=== PATIENT | female | born 1935 | race Caucasian/White ===

== ENCOUNTER 2020-11-06 07:42 | Outpatient (REF) | payer MEDICARE, SELFPAY ==
--- NOTE | ~2020-11-06 | MM_ITS ---
EXAMINATION: MM SCREENING DIGITAL BREAST TOMOSYNTHESIS, BILATERAL CLINICAL INFORMATION: Screening. Asymptomatic. The lifetime risk of breast cancer based on the Tyrer-Cuzick Model is under 1%. COMPARISON: Mammography: 05/22/2019, 04/27/2018, 04/02/2017 TECHNIQUE: Digital breast tomosynthesis is performed in both the craniocaudal and mediolateral oblique views along with computer-aided detection (CAD). Synthesized 2D images are generated from the tomosynthesis. FINDINGS: There are scattered areas of fibroglandular density (ACR BI-RADS breast composition Category b). Breast tissue composition borders on heterogeneously dense. Parenchymal pattern is similar to prior studies. There is no significant mass or architectural abnormality or abnormal calcifications. Right breast has biopsy clip marker adjacent to a nodule central anterior 3:30 o'clock position. The axilla and skin contours are unremarkable. MM/MM tomosynthesis screening BI IMPRESSION: No significant changes from prior studies. ASSESSMENT: BI-RADS 2: Benign RECOMMENDATION: Routine annual mammography screening. This patient's information was entered into a reminder system with a target due date for their next mammogram.
== END 2020-11-06 07:43 | disposition home or self-care (01) ==
LOC: HO.MAMMO 07:42
PROVIDERS: PCP Internal Medicine; Visit Provider Internal Medicine
DX: Z12.31 Encounter for screening mammogram for malignant neoplasm of breast (principal)
CPT/HCPCS: 77063; 77067

== ENCOUNTER 2020-11-11 14:34 | Outpatient (REF) | payer MEDICARE, SELFPAY ==
--- NOTE | 2020-11-11 14:41 | ECG_ITS ---
Test Reason : PRE OP Blood Pressure : / mmHG Vent. Rate : 059 BPM Atrial Rate : 059 BPM P-R Int : 178 ms QRS Dur : 082 ms QT Int : 396 ms P-R-T Axes : 080 064 074 degrees QTc Int : 392 ms Sinus bradycardia Otherwise normal ECG When compared with ECG of 08-MAR-2018 09:22, No significant change was found Referred By: Rayshawn Madison Electronically Signed By:MONICA LOVE MD
[2020-11-11 15:17] LABS: MANUAL DIFF FLAG NO
[2020-11-11 15:23] LABS: Basophils Percent Auto 0.2 % (0-2); Eosinophils Absolute Auto 0.1 X10*3/uL (0.0-0.4); Eosinophils Percent Auto 2.7 % (0-4); Hematocrit 39.1 % (37-47); Hemoglobin 12.6 g/dl (12.0-16.0); Imm Gran Abs Auto 0.02 X10*3/uL (0.00-0.03); Imm Gran Pct Auto 0.4 % (0.0-0.4); Lymphocytes Absolute Auto 1.9 X10*3/uL (1.2-4.9); Lymphocytes Percent Auto 36.5 % (20-40); Mean Corpuscular HGB Conc 32.2 g/dl (31.0-35.0); Mean Corpuscular Hemoglobin 30.9 pg (27.0-33.0); Mean Corpuscular Volume 95.8 fL (80-98); Mean Platelet Volume 10.1 fL (9.4-12.3); Monocytes Absolute Auto 0.4 X10*3/uL (0.1-1.2); Monocytes Percent Auto 8.4 % (2-11); Neutrophils Absolute Auto 2.6 X10*3/uL (2.0-8.3); Neutrophils Percent Auto 51.8 % (45-73); Platelet Count 226 X10*3/uL (160-400); Red Blood Count 4.08 X10*6/uL (4.20-5.50); Red Cell Distribution Width 13.2 % (11.0-16.0); White Blood Count 5.1 X10*3/uL (4.8-10.8)
[2020-11-11 15:29] LABS: Glucose Urine UA NEG (NEG); Leukocyte Esterase Urine NEG (NEG); Nitrite Urine POS (NEG); PH 5.5 (5.0-8.0); Specific Gravity - Urine >= 1.030 (1.005-1.025); Urine Blood NEG (NEG); Urine Ketones NEG (NEG); Urine Protein NEG (NEG-TRACE)
[2020-11-11 15:30] LABS: Appearance Urine CLEAR; Color Urine YELLOW
[2020-11-11 15:38] LABS: Bacteria Urine 3+ /LPF; RBC Urine 0 /HPF (0); Squamous Epithelial Cell Urine 1+ /LPF
[2020-11-11 15:41] LABS: Alanine Aminotransferase 32 U/L (0-31); Albumin Level 4.3 g/dL (3.5-5.0); Alkaline Phosphatase 100 U/L (39-117); Anion Gap 11 (12-20); Aspartate Amino Transferase 25 U/L (5-31); B Type Natriuretic Peptide 153 pg/mL (<100); Bilirubin Total 0.3 mg/dL (0.0-1.0); Blood Urea Nitrogen 21 mg/dL (9-16); Calcium 9.9 mg/dL (8.4-10.2); Carbon Dioxide 27 mmol/L (22-29); Chloride 108 mmol/L (96-108); Estimated Glomerular Filt Rate > 60; Glucose Random 103 mg/dL (60-115); Potassium 4.4 mmol/L (3.3-5.1); Sodium 142 mmol/L (135-145); Total Protein 6.7 g/dL (6.5-8.0)
[2020-11-11 16:03] LABS: Free T4 (Free Thyroxine) 0.93 ng/dL (0.71-1.85); Thyroid Stimulating Hormone 0.75 uIU/mL (0.32-4.0); Vitamin D 25-OH Total 60.1 ng/mL (>30)
[2020-11-11 16:13] LABS: Folate > 20.0 ng/mL (> or = 4.0); Vitamin B12 1164 pg/mL (200-900)
== END 2020-11-11 14:35 | disposition home or self-care (01) ==
LOC: HO.LAB 14:34
PROVIDERS: PCP Internal Medicine; Visit Provider Internal Medicine
DX: Z01.818 Encounter for other preprocedural examination (principal)
CPT/HCPCS: 36415; 80053; 81001; 82306; 82607; 82746; 83880; 84439; 84443; 85025; 87086; 87088; 87186; 93005

== ENCOUNTER 2021-10-28 15:14 | Outpatient (REF) | payer MEDICARE, SELFPAY ==
--- NOTE | ~2021-10-28 | CT_ITS ---
EXAMINATION: CT HEAD WITHOUT CONTRAST CLINICAL INFORMATION: Headache. COMPARISON: None TECHNIQUE: Contiguous axial imaging was performed from the skull base to vertex without intravenous administration of contrast. This CT examination was performed using dose optimization techniques as appropriate, variously including the following: *Automated exposure control *Adjustment of mA and/or kV according to patient size (this includes techniques or standardized protocols for targeted exams where dose is matched to indication/reason for exam; i.e. extremities or head) *Use of iterative reconstruction technique DLP: 782 mGy-cm FINDINGS: There is no evidence of acute intracranial hemorrhage or territorial infarction. No abnormal mass effect or midline shift is seen. Kuo to white matter differentiation is well preserved. No extra-axial fluid collections are identified. The lateral ventricles are symmetrical and mildly enlarged with mild prominence of bilateral cortical sulci. There is there is mild periventricular hypodensity in both cerebral hemispheres without mass effect. The osseous structures and soft tissues are normal. There is complete opacification of right sphenoid sinus. Rest of the paranasal sinuses and mastoid air cells are well-aerated. CT/CT head/brain wo con IMPRESSION: No acute intracranial process seen. Chronic right sphenoid sinus inflammatory changes.
== END 2021-10-28 15:15 | disposition home or self-care (01) ==
LOC: HO.CT 15:14
PROVIDERS: PCP Internal Medicine; Visit Provider Internal Medicine
DX: M81.0 Age-related osteoporosis without current pathological fracture (principal); R51.9 Headache, unspecified; J32.3 Chronic sphenoidal sinusitis
CPT/HCPCS: 70450

== ENCOUNTER 2021-11-11 09:11 | Outpatient (REF) | payer MEDICARE, SELFPAY ==
--- NOTE | ~2021-11-11 | MM_ITS ---
EXAMINATION: MM SCREENING DIGITAL BREAST TOMOSYNTHESIS, BILATERAL CLINICAL INFORMATION: Screening. Asymptomatic. COMPARISON: Mammography: 11/06/2020, 05/22/2019, 04/27/2018 TECHNIQUE: Digital breast tomosynthesis is performed in both the craniocaudal and mediolateral oblique views along with computer-aided detection (CAD). Synthesized 2D images are generated from the tomosynthesis. FINDINGS: There are scattered areas of fibroglandular density (ACR BI-RADS breast composition Category b). There are no significant masses, abnormal calcifications, or other abnormalities. Biopsy clip marker again noted mid 3:00 right breast. Parenchymal pattern is similar to prior studies. There is no developing density. The axilla and skin contours are unremarkable. MM/MM tomosynthesis screening BI IMPRESSION: No mammographic evidence of malignancy. ASSESSMENT: BI-RADS 1: Negative RECOMMENDATION: Routine annual mammography screening. This patient's information was entered into a reminder system with a target due date for their next mammogram.
--- NOTE | ~2021-11-11 | MM_ITS ---
EXAMINATION: BONE DENSITOMETRY CLINICAL INDICATION: Age-related osteoporosis without current pathological fracture. COMPARISON: Previous BD dated 09/21/2018 and baseline BD dated 05/10/2007. TECHNIQUE: Using a Reclip.It DXA System (software version: 13.1) manufactured by [employer], dual-energy x-ray absorptiometry was performed of the lumbar spine and left hip. The images are of good technical quality. Summary results are attached. FINDINGS: AP SPINE L1-L4: Current: BMD 0.848 g/cm2, Z-score -0.2, T-score -2.8, osteoporosis, 3.8% increase from previous, 10.5% decrease from baseline (<5% change is not significant). Prior: BMD 0.817 g/cm2. Baseline: BMD 0.948 g/cm2. LEFT FEMUR, NECK: Current: BMD 0.605 g/cm2, Z-score -0.3, T-score -3.1, osteoporosis. Prior: BMD 0.584 g/cm2. Baseline: BMD 0.669 g/cm2. LEFT FEMUR, TOTAL: Current: BMD 0.677 g/cm2, Z-score 0.1, T-score -2.6, osteoporosis, 6.3% increase from previous, 13.5% decrease from baseline (<5% change is not significant). Prior: BMD 0.637 g/cm2. Baseline: BMD 0.783 g/cm2. IDENTIFIED RISK FACTORS: Osteoporosis, height loss, family history (parental hip fracture), history of fracture (adult). Early menopause, secondary osteoporosis, hysterectomy. HISTORY OF FRACTURE: Wrist. MEDICATIONS: Calcium or multivitamin, bisphosphonate. MM/XR DEXA axial skeleton IMPRESSION: 1. DIAGNOSIS: Osteoporosis based on the lowest T-score value of -3.1 in the femoral neck applying World Health Organization criteria. 2. 10-YEAR FRACTURE RISK PREDICTION, FRAX: According to the guidelines, FRAX calculation should only be performed on patients in the osteopenia bone density category. Therefore, FRAX was not performed on this patient. 3. Treatment Recommendations: NOF guidelines recommend consideration for treatment in postmenopausal women and men age 50 and older presenting with the following: -A hip or vertebral (clinical or morphometric) fracture. -T-score less than or equal to -2.5 at the femoral neck or spine after appropriate evaluation to exclude secondary causes. -Low bone mass at the hip or spine and a 10-year fracture probability by FRAX of greater than or equal to 3% for hip fracture or greater than or equal to 20% for major osteoporotic fracture based on the [place] adapted WHO algorithm. 4. Other Recommendations: All treatment decisions require clinical judgment and consideration of individual patient factors, including patient preferences, comorbidities, previous drug use, risk factors not captured in the FRAX model (e.g. frailty, falls, vitamin D deficiency, increased bone turnover, interval significant decline in bone density) and possible under or overestimation of fracture risk by FRAX. Additional medical evaluation for secondary cause of low bone mineral density may be appropriate. FUTURE SCAN RECOMMENDATION: People with diagnosed cases of osteoporosis or at high risk for fracture should have regular bone mineral density tests. For patients eligible for Medicare, routine testing is allowed once every 2 years. The testing frequency can be increased to one year for patients who have rapidly progressing disease, those who are receiving or discontinuing medical therapy to restore bone mass, or have additional risk factors.
== END 2021-11-11 09:12 | disposition home or self-care (01) ==
LOC: HO.MAMMO 09:11
PROVIDERS: PCP Internal Medicine; Visit Provider Internal Medicine
DX: Z12.31 Encounter for screening mammogram for malignant neoplasm of breast (principal); Z13.820 Encounter for screening for osteoporosis; M81.0 Age-related osteoporosis without current pathological fracture; Z78.0 Asymptomatic menopausal state
CPT/HCPCS: 77063; 77067; 77080

== ENCOUNTER 2021-11-11 10:15 | Outpatient (REF) | payer MEDICARE, SELFPAY ==
[2021-11-11 10:51] LABS: MANUAL DIFF FLAG NO
[2021-11-11 11:52] LABS: Basophils Percent Auto 0.4 % (0-2); Eosinophils Absolute Auto 0.1 X10*3/uL (0.0-0.4); Eosinophils Percent Auto 1.6 % (0-4); Hematocrit 39.6 % (37.0-47.0); Hemoglobin 12.8 g/dl (12.0-16.0); Imm Gran Abs Auto 0.02 X10*3/uL (0.00-0.03); Imm Gran Pct Auto 0.4 % (0.0-0.4); Lymphocytes Absolute Auto 1.4 X10*3/uL (1.2-4.9); Lymphocytes Percent Auto 24.7 % (20-40); Mean Corpuscular HGB Conc 32.3 g/dl (31.0-35.0); Mean Corpuscular Hemoglobin 31.5 pg (27.0-33.0); Mean Corpuscular Volume 97.5 fL (80.0-98.0); Mean Platelet Volume 10.5 fL (9.4-12.3); Monocytes Absolute Auto 0.4 X10*3/uL (0.1-1.2); Monocytes Percent Auto 7.4 % (2-11); Neutrophils Absolute Auto 3.6 x10*3/uL (2.0-8.3); Neutrophils Percent Auto 65.5 % (45-73); Platelet Count 219 X10*3/uL (160-400); Red Blood Count 4.06 X10*6/uL (4.20-5.50); Red Cell Distribution Width 12.9 % (11.0-16.0); White Blood Count 5.5 X10*3/uL (4.8-10.8)
[2021-11-11 11:55] LABS: Estimated Average Glucose 111 mg/dL; Hemoglobin A1c % 5.5 %
[2021-11-11 12:10] LABS: Appearance Urine HAZY; Color Urine YELLOW; Glucose Urine UA NEG (NEG); Leukocyte Esterase Urine 1+ (NEG); Nitrite Urine POS (NEG); Specific Gravity - Urine >= 1.030 (1.005-1.025); Urine Blood NEG (NEG); Urine Ketones NEG (NEG); Urine Protein NEG (NEG-TRACE)
[2021-11-11 12:25] LABS: Bacteria Urine 4+ /LPF; RBC Urine 0 /HPF (0); Renal Epithelial Cells Urine TRACE /LPF; Squamous Epithelial Cell Urine TRACE /LPF
[2021-11-11 12:44] LABS: Alanine Aminotransferase 29 U/L (0-31); Albumin Level 3.9 g/dL (3.5-5.0); Alkaline Phosphatase 82 U/L (39-117); Anion Gap 13 (12-20); Aspartate Amino Transferase 24 U/L (5-31); Bilirubin Total 0.4 mg/dL (0.0-1.0); Blood Urea Nitrogen 16 mg/dL (9-16); Calcium 9.7 mg/dL (8.4-10.2); Carbon Dioxide 24 mmol/L (22-29); Chloride 108 mmol/L (96-108); Cholesterol 209 mg/dL; Estimated Glomerular Filt Rate > 60; Glucose Random 97 mg/dL (60-115); HDL Cholesterol 51 mg/dL; LDL Cholesterol Calculated 118 mg/dl; Potassium 4.5 mmol/L (3.3-5.1); Sodium 140 mmol/L (135-145); Total Protein 6.3 g/dL (6.5-8.0); Triglycerides 203 mg/dL
[2021-11-11 12:52] LABS: Thyroid Stimulating Hormone 0.87 uIU/mL (0.32-4.0)
[2021-11-11 13:52] LABS: Syphilis Screen Nonreactive (Nonreactive)
[2021-11-11 15:46] LABS: Folate > 20.0 ng/mL (> or = 4.0); Vitamin B12 777 pg/mL (200-900)
== END 2021-11-11 10:16 | disposition home or self-care (01) ==
LOC: HO.LAB 10:15
PROVIDERS: PCP Internal Medicine; Visit Provider Internal Medicine
DX: Z13.89 Encounter for screening for other disorder (principal)
CPT/HCPCS: 36415; 80053; 80061; 81001; 82306; 82607; 82746; 83036; 84439; 84443; 85025; 86780

== ENCOUNTER 2021-11-11 14:28 | Inpatient (IN) | payer MEDICARE, SELFPAY ==
--- NOTE | ~2021-11-11 | XR_ITS ---
EXAMINATION: XR HIP, RIGHT CLINICAL INFORMATION: Fall COMPARISON: None TECHNIQUE: AP pelvis and 2 views of the right hip FINDINGS: AP film of the pelvis does not demonstrate evidence of acute fracture or diastases of the pelvis. There is significant degenerative disc disease and facet arthropathy at the L5-S1 level. The left hip joint spaces maintained. There is noted to be a subcapital fracture of the proximal right femur. 2 views of the right hip demonstrate a displaced subcapital fracture with superior displacement of the distal fracture fragment by approximately 1.5 cm and with some mild medial angulation of the distal fracture fragment. No dislocation is evident. XR/XR hip RT w [id number] IMPRESSION: Displaced subcapital fracture of the right proximal femur.
--- NOTE | ~2021-11-11 | XR_ITS ---
EXAMINATION: XR CHEST CLINICAL INFORMATION: Preoperative evaluation. COMPARISON: 07/07/2010 TECHNIQUE: Frontal view of the chest was obtained. FINDINGS: No dense pulmonary consolidation, pleural effusion or pneumothorax. Diffusely reticulated interstitial lung markings. Linear opacities in the retrocardiac space, favored to represent atelectasis. Heart size is normal. Atherosclerosis thoracic aorta. No acute osseous abnormality. XR/XR chest 1V IMPRESSION: No acute pulmonary process. Chronic appearing lung disease.
[2021-11-11 14:42] VITALS: BP 216/73; PULSE 85; RESP 16; TEMP 36.7; O2SAT 99; BMI 20.9
--- NOTE | 2021-11-11 14:50 | ECG_ITS ---
Test Reason : fall Blood Pressure : / mmHG Vent. Rate : 081 BPM Atrial Rate : 081 BPM P-R Int : 174 ms QRS Dur : 076 ms QT Int : 366 ms P-R-T Axes : 083 057 073 degrees QTc Int : 425 ms Normal sinus rhythm Normal ECG When compared with ECG of 11-NOV-2020 13:48, No significant change was found Referred By: Zion Pimentel Electronically Signed By:SAGAR MANLEY
--- NOTE | 2021-11-11 14:53 | ED_ITS ---
HPI - General Adult General Chief complaint: Fall Stated complaint: FALL W/R HIP PAIN Time Seen by Provider: 11/11/21 14:43 Source: patient and EMS History of Present Illness HPI narrative: Patient with a fall prior to arrival. She was trying to pick something off the floor when she tripped and fell and injured her right hip. She denies hitting her head. She denies any other injuries other than right hip. EMS found patient to appear to have shortened rotated right leg. No other apparent injuries. No prior history of orthopedic surgery. Related Data Home Medications Medication Instructions Recorded Confirmed ascorbic acid (vitamin C) 1,000 mg 1 g PO DAILY tab 11/11/20 11/11/21 tablet ferrous sulfate 325 mg (65 mg 325 mg PO DAILY 11/11/20 11/11/21 iron) tablet (Feosol) gnpccnot-qmxwpgt-fvuy-lutein tablet 1 tab PO DAILY tab 11/11/20 11/11/21 omega-3 fatty acids 1,000 mg 1,000 mg PO DAILY 11/11/20 11/11/21 capsule (Fish Oil Concentrate) alendronate 70 mg tablet 70 mg PO WHITE@0600 11/11/21 11/11/21 latanoprostene bunod 0.024 % eye 1 drp OPHTHALMIC (EYE) BEDTIME 11/11/21 11/11/21 drops (Vyzulta) timolol maleate (PF) 0.5 % eye 1 drp OPHTHALMIC (EYE) DAILY 11/11/21 11/11/21 drops in a dropperette (Timoptic Ocudose (PF)) Previous Rx's Medication Instructions Recorded potassium chloride 20 mEq 20 meq PO BID #180 cap 08/17/21 tablet,extended release(part/cryst) furosemide 20 mg tablet 20 mg PO BID #180 cap 10/08/21 lisinopril 20 mg tablet 20 mg PO DAILY #90 cap 10/08/21 metoprolol succinate 25 mg 25 mg PO DAILY #90 cap 10/08/21 tablet,extended release 24 hr Allergies Allergy/AdvReac Type Severity Reaction Status Date / Time atorvastatin [Lipitor] Allergy Unknown Unknown Verified 10/08/21 10:36 ciprofloxacin [Cipro] Allergy Unknown nausea Verified 10/08/21 10:36 ezetimibe [Zetia] Allergy Unknown Unknown Verified 10/08/21 10:36 pravastatin [Pravachol] Allergy Unknown Unknown Verified 10/08/21 10:36 Septra Allergy Unknown Unknown Verified 10/08/21 10:36 simvastatin Allergy Unknown Unknown Verified 10/08/21 10:36 Review of Systems Constitutional: Comments: No malaise or general weakness Cardiovascular: Comments: No chest pain Respiratory: Comments: No difficulty breathing Gastrointestinal: Comments: No abdominal pain Musculoskeletal: Comments: Right hip pain without other injury Integumentary/Breasts: Comments: No bleeding Neurologic: Comments: No focal weakness FORMERLY [facility], [facility] Past Medical History Medical History (Updated 11/11/21 @ 16:54 by Zion Pimentel MD) Cholelithiasis Coronary artery disease Diverticular disease Fracture of right distal radius Glaucoma Hypercholesterolemia Hypertension Osteoporosis Vestibular neuronitis of both ears Surgical History (Updated 07/04/20 @ 09:09 by JOSE De León) History of appendectomy History of cataract surgery History of eye surgery History of surgery History of tonsillectomy History of total abdominal hysterectomy and bilateral salpingo-oophorectomy Hx of nasal septoplasty Family History Family History (Updated 07/04/20 @ 09:13 by JOSE De León) Father No problems noted. Mother CVD (cardiovascular disease) Hypertension Social History Social History (Updated 11/11/20 @ 13:34 by Chelsea Alvarenga CMA) Housing: Apartment Alcohol intake: never Patient Tobacco Use Status: Never used Tobacco e-Cigarette/Vaping Use: Never Used Second Hand Smoke Exposure: No Advance Directives: Yes Advance Directives on File: Yes Advance Directives Date on File: 10/08/21 Current occupational status: retired Physical Exam ED Vital Signs: Vital Signs - 24 hr 11/11/21 14:42 11/11/21 15:46 11/11/21 15:52 Temperature 98.1 F 98.8 F Pulse Rate 85 76 Respiratory Rate 16 16 15 Blood Pressure 216/73 H 188/67 H Pulse Oximetry 99 96 BMI result Body Mass Index 20.9 Const Other: Awake and alert. Lying on stretcher in. Initially C-collar in place. Hypertensive but other vitals stable HENNV Other: Normocephalic atraumatic Neck Other: No neck tenderness Chest Other: No chest wall tenderness Resp Other: Clear and equal bilaterally without wheezes rales or rhonchi Cardio Other: Regular rate and rhythm without murmurs rubs or gallops GI Other: Soft nontender nondistended Back/Spine/Pelvis Other: Back is nontender. No anterior pelvic tenderness or instability Skin Other: Warm pink and dry Neuro Other: No obvious focal neuro deficits although the need to move right leg secondary to right hip pain. Distal circulation and sensation is intact Extrem Other: Right lateral hip tenderness to palpation. Course Course Course Narrative: High probability right hip fracture X-rays and preop workup 16:51 Workup significant for right hip femoral neck fracture. Blood work is grossly unremarkable. Urinalysis shows 15-29 white cells. Lara catheter ordered. Will also order antibiotics. Orthopedic EDINSON Henderson notified of findings on x-ray. Anticipate hospitalization. Medical Decision Making Lab Data Result diagrams: 11/11/21 16:26 11/11/21 16:26 Labs: Lab Results 11/11/21 11/11/21 11/11/21 Range/Units 16:26 16:26 16:26 WBC 9.0 (4.8-10.8) X10*3/uL RBC 4.10 L (4.20-5.50) X10*6/uL Hgb 12.9 (12.0-16.0) g/dl Hct 39.4 (37.0-47.0) % MCV 96.1 (80.0-98.0) fL MCH 31.5 (27.0-33.0) pg MCHC 32.7 (31.0-35.0) g/dl RDW 12.9 (11.0-16.0) % Plt Count 193 (160-400) X10*3/uL MPV 10.0 (9.4-12.3) fL Immature Gran % (Auto) 1.8 H (0.0-0.4) % Neut % (Auto) 86.3 H (45-73) % Lymph % (Auto) 7.0 L (20-40) % [place] % (Auto) 4.4 (2-11) % Eos % (Auto) 0.4 (0-4) % Baso % (Auto) 0.1 (0-2) % Lymph # (Auto) 0.6 L (1.2-4.9) X10*3/uL [place] # (Auto) 0.4 (0.1-1.2) X10*3/uL Eos # (Auto) 0.0 (0.0-0.4) X10*3/uL Baso # (Auto) 0.0 (0.0-0.2) X10*3/uL Abs Immat Gran (auto) 0.16 H (0.00-0.03) X10*3/uL Absolute Neuts (auto) 7.8 (2.0-8.3) x10*3/uL Absolute Nucleated RBC 0.000 (0.0-0.012) X10*3/uL Nucleated RBC % (auto) 0.0 (0.0-0.2) /100WBC Sodium 142 (135-145) mmol/L Potassium 4.5 (3.3-5.1) mmol/L Chloride 109 H (96-108) mmol/L Carbon Dioxide 26 (22-29) mmol/L Anion Gap 12 (12-20) BUN 18 H (9-16) mg/dL Creatinine 0.74 (0.5-1.4) mg/dL Estim Creat Clear Calc 43.9 Estimated GFR > 60 Random Glucose 107 (60-115) mg/dL Calcium 9.3 (8.4-10.2) mg/dL Total Bilirubin 0.4 (0.0-1.0) mg/dL AST 27 (5-31) U/L ALT 32 H (0-31) U/L Alkaline Phosphatase 89 (39-117) U/L Total Protein 5.9 L (6.5-8.0) g/dL Albumin 3.7 (3.5-5.0) g/dL COVID-19 (EDUARD) Negative (Negative) COVID-19 Clin Com See Note Discharge Plan Discharge Clinical Impression: Closed hip fracture requiring operative repair, Urinary tract infection Patient Disposition: Admitted As Inpatient Prescriptions: No Action potassium chloride 20 mEq tablet,ER particles/crystals 20 meq PO BID Qty: 180 2RF alendronate 70 mg tablet 70 mg PO WHITE@0600 0RF timolol maleate (PF) [Timoptic Ocudose (PF)] 0.5 % dropperette 1 drp ophthalmic (eye) DAILY 0RF Vyzulta 0.024 % drops 1 drp ophthalmic (eye) BEDTIME 0RF omega-3 fatty acids [Fish Oil Concentrate] 1,000 mg capsule 1,000 mg PO DAILY 0RF ascorbic acid (vitamin C) 1,000 mg tablet 1 g PO DAILY 0RF ndwgdryr-igzgljz-qqsn-lutein Tablet 1 tab PO DAILY 0RF ferrous sulfate [Feosol] 325 mg (65 mg iron) tablet 325 mg PO DAILY 0RF furosemide 20 mg tablet 20 mg PO BID Qty: 180 2RF metoprolol succinate 25 mg tablet extended release 24 hr 25 mg PO DAILY Qty: 90 2RF lisinopril 20 mg tablet 20 mg PO DAILY Qty: 90 2RF
[2021-11-11 15:46] VITALS: BP 188/67; PULSE 76; RESP 16; TEMP 37.1; O2SAT 96
[2021-11-11 15:52] VITALS: RESP 15
[2021-11-11] MEDS: 0.9 % Sodium Chloride 500 ML IV (15:52)
[2021-11-11] MEDS: HYDROmorphone HCl 0.5 MG/0.5 ML SYRINGE IVPUSH (15:52)
[2021-11-11 16:30] LABS: MANUAL DIFF FLAG NO
[2021-11-11 16:32] LABS: Basophils Percent Auto 0.1 % (0-2); Eosinophils Percent Auto 0.4 % (0-4); Hematocrit 39.4 % (37.0-47.0); Hemoglobin 12.9 g/dl (12.0-16.0); Imm Gran Abs Auto 0.16 X10*3/uL (0.00-0.03); Imm Gran Pct Auto 1.8 % (0.0-0.4); Lymphocytes Absolute Auto 0.6 X10*3/uL (1.2-4.9); Mean Corpuscular HGB Conc 32.7 g/dl (31.0-35.0); Mean Corpuscular Hemoglobin 31.5 pg (27.0-33.0); Mean Corpuscular Volume 96.1 fL (80.0-98.0); Monocytes Absolute Auto 0.4 X10*3/uL (0.1-1.2); Monocytes Percent Auto 4.4 % (2-11); Neutrophils Absolute Auto 7.8 x10*3/uL (2.0-8.3); Neutrophils Percent Auto 86.3 % (45-73); Platelet Count 193 X10*3/uL (160-400); Red Cell Distribution Width 12.9 % (11.0-16.0)
[2021-11-11 16:47] LABS: COVID-19 Test Negative (Negative); IDNOW Serial# 16C4AD1C
[2021-11-11 16:48] LABS: Alanine Aminotransferase 32 U/L (0-31); Albumin Level 3.7 g/dL (3.5-5.0); Alkaline Phosphatase 89 U/L (39-117); Anion Gap 12 (12-20); Aspartate Amino Transferase 27 U/L (5-31); Bilirubin Total 0.4 mg/dL (0.0-1.0); Blood Urea Nitrogen 18 mg/dL (9-16); Calcium 9.3 mg/dL (8.4-10.2); Carbon Dioxide 26 mmol/L (22-29); Chloride 109 mmol/L (96-108); Creatinine Clr Calc Pharmacy 43.9; Estimated Glomerular Filt Rate > 60; Glucose Random 107 mg/dL (60-115); Potassium 4.5 mmol/L (3.3-5.1); Sodium 142 mmol/L (135-145); Total Protein 5.9 g/dL (6.5-8.0)
[2021-11-11 17:01] LABS: Prothrombin Time 11.5 SEC (9.9-13.0)
[2021-11-11 17:28] LABS: Appearance Urine CLEAR; Color Urine YELLOW; Glucose Urine UA NEG (NEG); Leukocyte Esterase Urine 1+ (NEG); Nitrite Urine POS (NEG); UACC Culture Trigger YES; Urine Blood NEG (NEG); Urine Ketones NEG (NEG); Urine Protein NEG (NEG-TRACE)
[2021-11-11 17:45] LABS: Bacteria Urine 3+ /LPF; RBC Urine 0-2 /HPF (0); Squamous Epithelial Cell Urine TRACE /LPF
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
[2021-11-11] MEDS: oxyCODONE HCl Immed Release 5 MG TABLET PO (18:23)
--- NOTE | 2021-11-11 18:55 | PC.NURSE ---
Addendum entered by Yenny Boyd 11/11/21 19:04: pt is alert and oriented. resting in bed. no signs of acute distress notice. denies any chest pain or sob Original Note: Report received from PHILIP Mccall
[2021-11-11 18:59] VITALS: BP 175/61; PULSE 74; RESP 16; TEMP 36.9; O2SAT 94
[2021-11-11] MEDS: cefTRIAXone sodium 1 GM in 0.9 % Sodium Chloride 50 ML IV (19:09)
--- NOTE | 2021-11-11 21:31 | PC.NURSE ---
Lara catheter placed by this RN. him tech at bedside for transport to floor.
[2021-11-11 22:02] VITALS: BMI 20.3
[2021-11-11] MEDS: 0.9 % Sodium Chloride Flush 3 ML SYRINGE IVFLUSH (22:17)
[2021-11-12] VITALS (14 sets, daily range): BP systolic 141–190; BP diastolic 46–90; PULSE 69–89; RESP 14–20; TEMP 36.2–37.3; O2SAT 94–100
[2021-11-12 05:56] LABS: Hematocrit 36.8 % (37.0-47.0); Hemoglobin 12.3 g/dl (12.0-16.0); Mean Corpuscular HGB Conc 33.4 g/dl (31.0-35.0); Mean Corpuscular Hemoglobin 31.6 pg (27.0-33.0); Mean Corpuscular Volume 94.6 fL (80.0-98.0); Mean Platelet Volume 10.3 fL (9.4-12.3); Platelet Count 192 X10*3/uL (160-400); Red Blood Count 3.89 X10*6/uL (4.20-5.50); Red Cell Distribution Width 12.9 % (11.0-16.0); White Blood Count 9.2 X10*3/uL (4.8-10.8)
[2021-11-12 06:11] LABS: INTERNATIONAL NORM RATIO 1.1 (0.9-1.1); Prothrombin Time 12.8 SEC (9.9-13.0)
[2021-11-12] MEDS: lisinopriL 20 MG TABLET PO (08:09)
[2021-11-12] MEDS: 0.9 % Sodium Chloride Flush 3 ML SYRINGE IVFLUSH (08:09)
[2021-11-12] MEDS: Metoprolol Succinate ER 25 MG TAB.ER.24H PO (08:09)
[2021-11-12] MEDS: Multivitamin TABLET 1 TAB PO (08:10)
--- NOTE | 2021-11-12 09:43 | PM.CNOR ---
History of Present Illness HPI Consult date: 11/12/21 Chief complaint: R femoral fx Narrative: This is an 86-year-old female who presented to the emergency department after sustaining a fall at home. She states that she was taking out the recycling when the biggest of when came and she lost her balance and fell. She was transported to the emergency department where x-rays and clinical exam were significant for right femoral neck fracture. She does live alone and is independent in most of her daily activities. Her [id number] does do her shopping. She just recently gave up driving. She does not use an assistive device for ambulation. She was admitted to the hospital service and Orthopedics was consulted for surgical planning. Review of Systems Review of Systems: As per [facility] Past Medical History Medical History Cholelithiasis Coronary artery disease Diverticular disease Fracture of right distal radius Glaucoma Hypercholesterolemia Hypertension Osteoporosis Vestibular neuronitis of both ears Family History Family History Father No problems noted. Mother CVD (cardiovascular disease) Hypertension Surgical History Surgical History History of appendectomy History of cataract surgery History of eye surgery History of surgery History of tonsillectomy History of total abdominal hysterectomy and bilateral salpingo-oophorectomy Hx of nasal septoplasty Social History Social History Household Members: None Housing: House Alcohol intake: never Patient Tobacco Use Status: Never used Tobacco e-Cigarette/Vaping Use: Never Used Second Hand Smoke Exposure: No Use of substances other than those prescribed or required for medical reasons: No Currently Displaying Signs/Symptoms of Drug Intoxication Withdrawal: No Have you been hit, kicked, punched, or otherwise hurt by someone within the past year? If so, by whom?: No Do you feel safe in your current relationship?: No Current Relationship Is there a partner from a previous relationship who is making you feel unsafe now?: No Are you made to feel afraid or neglected: No Advance Directives: Yes Advance Directives on File: Yes Advance Directives Date on File: 10/08/21 Do you have thoughts of harming others: None Do you have a plan to hurt others: No Plan Recently lost weight without trying: No How much weight loss: Not applicable Eating poorly because of decreased appetite: No Nutrition screen score: 0 Nutrition Risks: No Nutritional Risk Patient : No : No Poor oral hygiene: No Current occupational status: retired Meds Allergies Allergy/AdvReac Type Severity Reaction Status Date / Time atorvastatin [Lipitor] Allergy Unknown Unknown Verified 10/08/21 10:36 ciprofloxacin [Cipro] Allergy Unknown nausea Verified 10/08/21 10:36 ezetimibe [Zetia] Allergy Unknown Unknown Verified 10/08/21 10:36 pravastatin [Pravachol] Allergy Unknown Unknown Verified 10/08/21 10:36 Septra Allergy Unknown Unknown Verified 10/08/21 10:36 simvastatin Allergy Unknown Unknown Verified 10/08/21 10:36 Active Medications: Current Medications Acetaminophen (Acetaminophen 325 Mg Tablet) 650 mg PO Q6H PRN PRN Reason: Pain, Mild (Pain Scale 1-3) Lisinopril (Lisinopril 20 Mg Tablet) 20 mg PO DAILY [facility]; Protocol Last Admin: 11/12/21 08:09 Dose: 20 mg Documented by: Metoprolol Succinate (Metoprolol Succinate Er 25 Mg Tab.Er.24h) 25 mg PO DAILY [facility]; Protocol Last Admin: 11/12/21 08:09 Dose: 25 mg Documented by: Morphine Sulfate (Morphine Sulfate 2 Mg/Ml Cartridge) 2 mg IVPUSH Q4H PRN; Protocol PRN Reason: Pain, Severe (Pain Scale 7-10) Multivitamins/Vitamin C (Multivitamin Tablet) 1 tab PO DAILY [facility] Last Admin: 11/12/21 08:10 Dose: 1 tab Documented by: Non-Formulary Medication (Latanoprostene Bunod [Vyzulta]) 1 drop EYE-BOTH BEDTIME [facility] Ondansetron HCl (Ondansetron Hcl 4 Mg/2 Ml Vial) 4 mg IVPUSH Q8H PRN PRN Reason: Nausea and Vomiting Oxycodone HCl (Oxycodone Hcl Immed Release 5 Mg Tablet) 5 mg PO Q6H PRN PRN Reason: Pain, Severe (Pain Scale 7-10) Last Admin: 11/11/21 18:23 Dose: 5 mg Documented by: Sodium Chloride (0.9 % Sodium Chloride Flush 3 Ml Syringe) 3 ml IVFLUSH QSHIFT [facility] Last Admin: 11/12/21 08:09 Dose: 3 ml Documented by: Timolol Maleate (Timolol Maleate 0.5 % Oph Peace 5 Ml Drbtl) 1 drop EYE-BOTH DAILY [facility] Last Admin: 11/12/21 08:10 Dose: Not Given Documented by: Home Medications Medication Instructions Recorded Confirmed Last Taken Type ascorbic acid (vitamin C) 1,000 mg 1 g PO DAILY tab 11/11/20 11/11/21 Unknown History tablet ferrous sulfate 325 mg (65 mg 325 mg PO DAILY 11/11/20 11/11/21 Unknown History iron) tablet (Feosol) tukcnmnr-nijwpgh-xfzv-lutein tablet 1 tab PO DAILY tab 11/11/20 11/11/21 Unknown History omega-3 fatty acids 1,000 mg 1,000 mg PO DAILY 11/11/20 11/11/21 Unknown History capsule (Fish Oil Concentrate) alendronate 70 mg tablet 70 mg PO WHITE@0600 11/11/21 11/11/21 Unknown History latanoprostene bunod 0.024 % eye 1 drp OPHTHALMIC (EYE) BEDTIME 11/11/21 11/11/21 Unknown History drops (Vyzulta) timolol maleate (PF) 0.5 % eye 1 drp OPHTHALMIC (EYE) DAILY 11/11/21 11/11/21 Unknown History drops in a dropperette (Timoptic Ocudose (PF)) Physical Exam Vital Signs: Vital Signs: Last Vital Signs Temp 99.1 F 11/12/21 07:15 Pulse 89 11/12/21 07:15 Resp 18 11/12/21 07:15 BP 175/72 H 11/12/21 07:15 Pulse Ox 98 11/12/21 07:15 BMI result Body Mass Index 20.3 Const: General: cooperative, healthy appearing, comfortable, no acute distress, well developed and alert Orientation/consciousness: patient oriented x3 HEENT: Head: Yes normal to inspection, Yes normocephalic and Yes atraumatic Eyes: General: appearance normal, both eyes and all related structures Neck: Neck: Yes normal visual inspection and Yes no lymphadenopathy Resp: Effort & Inspection: normal respiratory effort and able to speak in complete sentences Cardio: Rate: regular rate Peripheral pulses: Peripheral pulses 2+ throughout GI: Inspection: Yes normal to inspection Palpation (GI): Soft to palpation Skin: General skin exam: no rashes or lesions noted Neuro: General: patient oriented x3 Extrem: Other: Right hip normal to inspection. There is pain with log roll. Unable to straight leg raise. Neurovascular intact. Psych: Appearance: grossly normal Mental Status: mental status grossly normal Results Labs Result Diagrams: 11/12/21 05:32 11/11/21 16:26 Labs: Abnormal lab results 11/11/21 11/11/21 11/11/21 Range/Units 16:26 16:26 17:18 RBC 4.10 L (4.20-5.50) X10*6/uL Hct (37.0-47.0) % Immature Gran % (Auto) 1.8 H (0.0-0.4) % Neut % (Auto) 86.3 H (45-73) % Lymph % (Auto) 7.0 L (20-40) % Lymph # (Auto) 0.6 L (1.2-4.9) X10*3/uL Abs Immat Gran (auto) 0.16 H (0.00-0.03) X10*3/uL Chloride 109 H (96-108) mmol/L BUN 18 H (9-16) mg/dL ALT 32 H (0-31) U/L Total Protein 5.9 L (6.5-8.0) g/dL Urine Nitrite POS H (NEG) Ur Leukocyte Esterase 1+ H (NEG) 11/12/21 Range/Units 05:32 RBC 3.89 L (4.20-5.50) X10*6/uL Hct 36.8 L (37.0-47.0) % Immature Gran % (Auto) (0.0-0.4) % Neut % (Auto) (45-73) % Lymph % (Auto) (20-40) % Lymph # (Auto) (1.2-4.9) X10*3/uL Abs Immat Gran (auto) (0.00-0.03) X10*3/uL Chloride (96-108) mmol/L BUN (9-16) mg/dL ALT (0-31) U/L Total Protein (6.5-8.0) g/dL Urine Nitrite (NEG) Ur Leukocyte Esterase (NEG) H & H 11/11/21 11/12/21 Range/Units 16:26 05:32 Hgb 12.9 12.3 (12.0-16.0) g/dl Hct 39.4 36.8 L (37.0-47.0) % Coagulation 11/11/21 11/12/21 Range/Units 16:44 05:32 INR 1.0 1.1 (0.9-1.1) All other labs normal. Assessment and Plan (1) Fracture of femoral neck, right: Status: Acute Plan I discussed the case with Dr Alvarado and explained the extent of the injury to the patient and options available which include surgical intervention. I explained the procedure in detail along with the length of recovery and rehab course. I explained the risk, benefits and alternatives. Risk including, but not limited to infection, blood clots, bleeding, non union or malunion and nerve/tissue damage to surrounding areas. I answered all their questions and with their understanding they have consented to move forward with Operative Fixation of the right hip . The patient will be T&S, med clearance obtained and NPO . Procedures Date of Service Date of Service: 11/12/21
[2021-11-12] MEDS: Morphine Sulfate 2 MG/ML CARTRIDGE IVPUSH (10:30)
--- NOTE | 2021-11-12 11:25 | HO.PM.IMPN ---
Subjective Subjective Date of Service: 11/12/21 Interval History: pain controlled NPO for operative intervention no chest pain no dyspnea Review of Systems Review of Systems: Yes all other systems are reviewed and are negative Physical Exam Vital Signs: Vital Signs: Last Vital Signs Temp 99.1 F 11/12/21 07:15 Pulse 89 11/12/21 07:15 Resp 18 11/12/21 10:30 BP 175/72 H 11/12/21 07:15 Pulse Ox 98 11/12/21 07:15 BMI result Body Mass Index 20.3 Gen: in pain HEENT: sclera anicteric, moist mucus membranes Neck: supple Lungs: clear to auscultation bilaterally Heart: regular rate and rhythm, no murmurs Abd: soft, non-tender, non-distended Ext: RLE externally rotated Skin: warm/well-perfused Neuro: alert and oriented x3, no focal findings Psych: appropriate affect Objective Data Active Medications Acetaminophen (Acetaminophen 325 Mg Tablet) 650 mg PO Q6H PRN PRN Reason: Pain, Mild (Pain Scale 1-3) Lisinopril (Lisinopril 20 Mg Tablet) 20 mg PO DAILY [facility]; Protocol Last Admin: 11/12/21 08:09 Dose: 20 mg Documented by: AQUILES Metoprolol Succinate (Metoprolol Succinate Er 25 Mg Tab.Er.24h) 25 mg PO DAILY [facility]; Protocol Last Admin: 11/12/21 08:09 Dose: 25 mg Documented by: AQUILES Morphine Sulfate (Morphine Sulfate 2 Mg/Ml Cartridge) 2 mg IVPUSH Q4H PRN; Protocol PRN Reason: Pain, Severe (Pain Scale 7-10) Last Admin: 11/12/21 10:30 Dose: 2 mg Documented by: AQUILES Multivitamins/Vitamin C (Multivitamin Tablet) 1 tab PO DAILY [facility] Last Admin: 11/12/21 08:10 Dose: 1 tab Documented by: AQUILES Non-Formulary Medication (Latanoprostene Bunod [Vyzulta]) 1 drop EYE-BOTH BEDTIME [facility] Ondansetron HCl (Ondansetron Hcl 4 Mg/2 Ml Vial) 4 mg IVPUSH Q8H PRN PRN Reason: Nausea and Vomiting Oxycodone HCl (Oxycodone Hcl Immed Release 5 Mg Tablet) 5 mg PO Q6H PRN PRN Reason: Pain, Severe (Pain Scale 7-10) Last Admin: 11/11/21 18:23 Dose: 5 mg Documented by: MAURILIO Sodium Chloride (0.9 % Sodium Chloride Flush 3 Ml Syringe) 3 ml IVFLUSH QSHIFT [facility] Last Admin: 11/12/21 08:09 Dose: 3 ml Documented by: AQUILES Timolol Maleate (Timolol Maleate 0.5 % Oph Peace 5 Ml Drbtl) 1 drop EYE-BOTH DAILY [facility] Last Admin: 11/12/21 08:10 Dose: Not Given Documented by: AQUILES Non-Admin Reason: Med Not Available Labs CBC & Chem 7: 11/12/21 05:32 11/11/21 16:26 Labs: Laboratory Results - last 24 hr 11/11/21 11/11/21 11/11/21 16:26 16:26 16:26 MCV 96.1 MCH 31.5 MCHC 32.7 RDW 12.9 Plt Count 193 MPV 10.0 Immature Gran % (Auto) 1.8 H Neut % (Auto) 86.3 H Lymph % (Auto) 7.0 L [place] % (Auto) 4.4 Eos % (Auto) 0.4 Baso % (Auto) 0.1 Lymph # (Auto) 0.6 L [place] # (Auto) 0.4 Eos # (Auto) 0.0 Baso # (Auto) 0.0 Abs Immat Gran (auto) 0.16 H Absolute Neuts (auto) 7.8 Absolute Nucleated RBC 0.000 Nucleated RBC % (auto) 0.0 PT INR Anion Gap 12 Estim Creat Clear Calc 43.9 Estimated GFR > 60 Random Glucose 107 Calcium 9.3 Total Bilirubin 0.4 AST 27 ALT 32 H Alkaline Phosphatase 89 Total Protein 5.9 L Albumin 3.7 Urine Color Urine Appearance Urine pH Ur Specific [place] Urine Protein Urine Glucose (UA) Urine Ketones Urine Blood Urine Nitrite Ur Leukocyte Esterase Urine RBC Urine WBC Ur Squamous Epith Cells Urine Bacteria COVID-19 (EDUARD) Negative COVID-19 Clin Com See Note Blood Type Antibody Screen 11/11/21 11/11/21 11/12/21 16:44 17:18 05:32 MCV 94.6 MCH 31.6 MCHC 33.4 RDW 12.9 Plt Count 192 MPV 10.3 Immature Gran % (Auto) Neut % (Auto) Lymph % (Auto) [place] % (Auto) Eos % (Auto) Baso % (Auto) Lymph # (Auto) [place] # (Auto) Eos # (Auto) Baso # (Auto) Abs Immat Gran (auto) Absolute Neuts (auto) Absolute Nucleated RBC 0.000 Nucleated RBC % (auto) 0.0 PT 11.5 INR 1.0 Anion Gap Estim Creat Clear Calc Estimated GFR Random Glucose Calcium Total Bilirubin AST ALT Alkaline Phosphatase Total Protein Albumin Urine Color YELLOW Urine Appearance CLEAR Urine pH 6.0 Ur Specific [place] 1.020 Urine Protein NEG Urine Glucose (UA) NEG Urine Ketones NEG Urine Blood NEG Urine Nitrite POS H Ur Leukocyte Esterase 1+ H Urine RBC 0-2 Urine WBC 1-4 Ur Squamous Epith Cells TRACE Urine Bacteria 3+ COVID-19 (EDUARD) COVID-19 [employer] Blood Type Antibody Screen 11/12/21 11/12/21 05:32 08:37 MCV MCH MCHC RDW Plt Count MPV Immature Gran % (Auto) Neut % (Auto) Lymph % (Auto) [place] % (Auto) Eos % (Auto) Baso % (Auto) Lymph # (Auto) [place] # (Auto) Eos # (Auto) Baso # (Auto) Abs Immat Gran (auto) Absolute Neuts (auto) Absolute Nucleated RBC Nucleated RBC % (auto) PT 12.8 INR 1.1 Anion Gap Estim Creat Clear Calc Estimated GFR Random Glucose Calcium Total Bilirubin AST ALT Alkaline Phosphatase Total Protein Albumin Urine Color Urine Appearance Urine pH Ur Specific [place] Urine Protein Urine Glucose (UA) Urine Ketones Urine Blood Urine Nitrite Ur Leukocyte Esterase Urine RBC Urine WBC Ur Squamous Epith Cells Urine Bacteria COVID-19 (EDUARD) COVID-19 [employer] Com Blood Type O Positive Antibody Screen NEGATIVE Microbiology Microbiology Results: Microbiology 11/11/21 17:50 Urine Culture - Preliminary Urine clean catch - Urine armando top Gram negative shawn Assessment and Plan (1) Fracture of femoral neck, right: Status: Acute Plan hospital d#2 86yo independently living F with HTN, CAD, and osteoporosis presenting with a displaced subcapital fracture of the right proximal femur after a mechanical fall # hip fracture - Ortho consulted, NPO for operative intervention, pain control with APAP/oxycodone/IV morphine. # HTN # CAD - continue metoprolol and lisinopril.? no history of PCI or stenting. ? She has no current anginal symptoms and prior to the fall, was able to climb 1-2 flights of stairs without chest pressure or dyspnea. ? She is at intermediate cardiovascular risk for operative intervention. ? Beta-calista will be continued.? No further preoperative workup is indicated. # osteoporosis - alendronate # VTE ppx - SCDs Quality Stroke Does the patient have a stroke diagnosis?: No VTE Prior VTE?: No VTE Risk Level:: Medical - moderate - high VTE Device Contraindication: N/A - Device Ordered VTE Drug Contraindication: Treatment Not Indicated
--- NOTE | 2021-11-12 12:14 | MHC.CM.PN ---
IMM 11/12/21, EMR REVIEWED, PT ADMITTED S/P FALL AND R FEMORAL NECK FX, CM MET W/PT WHO REPORTS SHE LIVES ALONE, HAS NO DME OR HOME MODIFICATIONS, PT FULLY INDEPENDENT W/ALL CARE, AND HAS A CLEANING LADY EVERY TWO WEEKS, PT VERIFIES SHE HAS HAD AT LEAST 2 PFIZER VACCINES, PCP IS RUBEN SANDHU AND PT REPORTS HER HCP IS HER DTR IN LAW [facility] RICE [phone], PT REQUESTED CM CONTACT [facility], NO ANSWER HOWEVER WHILE WRITING THIS NOTE [facility] CAME TO UNIT AND CM MET W/PT AND [facility] AT BEDSIDE, PER [facility] PREFERRED SNF WILL BE [facility], AND IS OK W/[facility] AND [facility] BACK UP OPTIONS. [facility] ALSO BROUGHT COPIES OF HCP AND MOLST AND WILL BRING IN COPY OF COVID VACCINE CARD. PLAN FOR HIP D/C PLAN: STR [facility] FOR BLS TRANSPORT
[2021-11-12] MEDS: oxyCODONE HCl Immed Release 5 MG TABLET PO (12:32)
--- NOTE | 2021-11-12 13:53 | P.CONAN_ITS ---
HPI - Anesthesia Eval Consult details Narrative: 86 F for right denise Arthroplasty CAD , HTN , Hypercholesterolemia , cognitive impairement [facility] Active Problems Active Problems: All Active Problems (Updated 11/12/21 @ 09:44 by Soniya Henderson PA-C) Fracture of femoral neck, right (Acute) Closed hip fracture requiring operative repair (Acute) Urinary tract infection (Acute) Cognitive impairment (Acute) Osteoporosis (Acute) Preop exam for internal medicine (Acute) Hypertension (Acute) Hypercholesterolemia (Acute) Coronary artery disease (Acute) Past Medical History Medical History Cholelithiasis Coronary artery disease Diverticular disease Fracture of right distal radius Glaucoma Hypercholesterolemia Hypertension Osteoporosis Vestibular neuronitis of both ears Family History Family History Father No problems noted. Mother CVD (cardiovascular disease) Hypertension Family history of problems with anesthesia: No Surgical History Surgical History History of appendectomy History of cataract surgery History of eye surgery History of surgery History of tonsillectomy History of total abdominal hysterectomy and bilateral salpingo-oophorectomy Hx of nasal septoplasty History of Problems with Anesthesia: No Social History Social History Household Members: None Housing: House Alcohol intake: never Patient Tobacco Use Status: Never used Tobacco e-Cigarette/Vaping Use: Never Used Second Hand Smoke Exposure: No Use of substances other than those prescribed or required for medical reasons: No Currently Displaying Signs/Symptoms of Drug Intoxication Withdrawal: No Have you been hit, kicked, punched, or otherwise hurt by someone within the past year? If so, by whom?: No Do you feel safe in your current relationship?: No Current Relationship Is there a partner from a previous relationship who is making you feel unsafe now?: No Are you made to feel afraid or neglected: No Are you DNR?: Yes Advance Directives: Yes Advance Directives on File: Yes Advance Directives Date on File: 10/08/21 Do you have thoughts of harming others: None Do you have a plan to hurt others: No Plan Recently lost weight without trying: No How much weight loss: Not applicable Eating poorly because of decreased appetite: No Nutrition screen score: 0 Nutrition Risks: No Nutritional Risk Patient : No : No Poor oral hygiene: No service: No Current occupational status: retired Meds Allergies Allergy/AdvReac Type Severity Reaction Status Date / Time atorvastatin [Lipitor] Allergy Unknown Unknown Verified 10/08/21 10:36 ciprofloxacin [Cipro] Allergy Unknown nausea Verified 10/08/21 10:36 ezetimibe [Zetia] Allergy Unknown Unknown Verified 10/08/21 10:36 pravastatin [Pravachol] Allergy Unknown Unknown Verified 10/08/21 10:36 Septra Allergy Unknown Unknown Verified 10/08/21 10:36 simvastatin Allergy Unknown Unknown Verified 10/08/21 10:36 Active Medications: Current Medications Acetaminophen (Acetaminophen 325 Mg Tablet) 650 mg PO Q6H PRN PRN Reason: Pain, Mild (Pain Scale 1-3) Lisinopril (Lisinopril 20 Mg Tablet) 20 mg PO DAILY [facility]; Protocol Last Admin: 11/12/21 08:09 Dose: 20 mg Documented by: Metoprolol Succinate (Metoprolol Succinate Er 25 Mg Tab.Er.24h) 25 mg PO DAILY [facility]; Protocol Last Admin: 11/12/21 08:09 Dose: 25 mg Documented by: Morphine Sulfate (Morphine Sulfate 2 Mg/Ml Cartridge) 2 mg IVPUSH Q4H PRN; Protocol PRN Reason: Pain, Severe (Pain Scale 7-10) Last Admin: 11/12/21 10:30 Dose: 2 mg Documented by: Multivitamins/Vitamin C (Multivitamin Tablet) 1 tab PO DAILY [facility] Last Admin: 11/12/21 08:10 Dose: 1 tab Documented by: Non-Formulary Medication (Latanoprostene Bunod [Vyzulta]) 1 drop EYE-BOTH BEDTIME [facility] Ondansetron HCl (Ondansetron Hcl 4 Mg/2 Ml Vial) 4 mg IVPUSH Q8H PRN PRN Reason: Nausea and Vomiting Oxycodone HCl (Oxycodone Hcl Immed Release 5 Mg Tablet) 5 mg PO Q6H PRN PRN Reason: Pain, Severe (Pain Scale 7-10) Last Admin: 11/12/21 12:32 Dose: 5 mg Documented by: Sodium Chloride (0.9 % Sodium Chloride Flush 3 Ml Syringe) 3 ml IVFLUSH QSHIFT [facility] Last Admin: 11/12/21 08:09 Dose: 3 ml Documented by: Timolol Maleate (Timolol Maleate 0.5 % Oph Peace 5 Ml Drbtl) 1 drop EYE-BOTH DAILY [facility] Last Admin: 11/12/21 08:10 Dose: Not Given Documented by: Home Medications Medication Instructions Recorded Confirmed Last Taken Type ascorbic acid (vitamin C) 1,000 mg 1 g PO DAILY tab 11/11/20 11/11/21 Unknown History tablet ferrous sulfate 325 mg (65 mg 325 mg PO DAILY 11/11/20 11/11/21 Unknown History iron) tablet (Feosol) [id number]-pcis-lutein tablet 1 tab PO DAILY tab 11/11/20 11/11/21 Unknown History omega-3 fatty acids 1,000 mg 1,000 mg PO DAILY 11/11/20 11/11/21 Unknown History capsule (Fish Oil Concentrate) alendronate 70 mg tablet 70 mg PO WHITE@0600 11/11/21 11/11/21 Unknown History latanoprostene bunod 0.024 % eye 1 drp OPHTHALMIC (EYE) BEDTIME 11/11/21 11/11/21 Unknown History drops (Vyzulta) timolol maleate (PF) 0.5 % eye 1 drp OPHTHALMIC (EYE) DAILY 11/11/21 11/11/21 Unknown History drops in a dropperette (Timoptic Ocudose (PF)) Exam Exam Date and Time: November 12, 2021 1353 Height,Weight and Vital Signs: Height 5 ft 2 in Weight 50.4 kg Last Vital Signs Temp 98.2 F 11/12/21 13:09 Pulse 72 11/12/21 13:09 Resp 16 11/12/21 13:09 BP 162/62 H 11/12/21 13:09 Pulse Ox 94 11/12/21 13:09 Pertinent Lab Results Pertinent Lab Results: Laboratory Tests 11/11/21 11/11/21 11/11/21 16:26 16:26 16:26 WBC 9.0 RBC 4.10 L Hgb 12.9 Hct 39.4 MCV 96.1 MCH 31.5 MCHC 32.7 RDW 12.9 Plt Count 193 MPV 10.0 Immature Gran % (Auto) 1.8 H Neut % (Auto) 86.3 H Lymph % (Auto) 7.0 L [place] % (Auto) 4.4 Eos % (Auto) 0.4 Baso % (Auto) 0.1 Lymph # (Auto) 0.6 L [place] # (Auto) 0.4 Eos # (Auto) 0.0 Baso # (Auto) 0.0 Abs Immat Gran (auto) 0.16 H Absolute Neuts (auto) 7.8 Absolute Nucleated RBC 0.000 Nucleated RBC % (auto) 0.0 PT INR Sodium 142 Potassium 4.5 Chloride 109 H Carbon Dioxide 26 Anion Gap 12 BUN 18 H Creatinine 0.74 Estim Creat Clear Calc 43.9 Estimated GFR > 60 Random Glucose 107 Calcium 9.3 Total Bilirubin 0.4 AST 27 ALT 32 H Alkaline Phosphatase 89 Total Protein 5.9 L Albumin 3.7 Urine Color Urine Appearance Urine pH Ur Specific [place] Urine Protein Urine Glucose (UA) Urine Ketones Urine Blood Urine Nitrite Ur Leukocyte Esterase Urine RBC Urine WBC Ur Squamous Epith Cells Urine Bacteria COVID-19 ([facility]) Negative COVID-19 Clin Com See Note Blood Type Antibody Screen 11/11/21 11/11/21 11/12/21 16:44 17:18 05:32 WBC 9.2 RBC 3.89 L Hgb 12.3 Hct 36.8 L MCV 94.6 MCH 31.6 MCHC 33.4 RDW 12.9 Plt Count 192 MPV 10.3 Immature Gran % (Auto) Neut % (Auto) Lymph % (Auto) [place] % (Auto) Eos % (Auto) Baso % (Auto) Lymph # (Auto) [place] # (Auto) Eos # (Auto) Baso # (Auto) Abs Immat Gran (auto) Absolute Neuts (auto) Absolute Nucleated RBC 0.000 Nucleated RBC % (auto) 0.0 PT 11.5 INR 1.0 Sodium Potassium Chloride Carbon Dioxide Anion Gap BUN Creatinine Estim Creat Clear Calc Estimated GFR Random Glucose Calcium Total Bilirubin AST ALT Alkaline Phosphatase Total Protein Albumin Urine Color YELLOW Urine Appearance CLEAR Urine pH 6.0 Ur Specific [place] 1.020 Urine Protein NEG Urine Glucose (UA) NEG Urine Ketones NEG Urine Blood NEG Urine Nitrite POS H Ur Leukocyte Esterase 1+ H Urine RBC 0-2 Urine WBC 1-4 Ur Squamous Epith Cells TRACE Urine Bacteria 3+ COVID-19 ([facility]) COVID-19 Clin Com Blood Type Antibody Screen 11/12/21 11/12/21 05:32 08:37 WBC RBC Hgb Hct MCV MCH MCHC RDW Plt Count MPV Immature Gran % (Auto) Neut % (Auto) Lymph % (Auto) [place] % (Auto) Eos % (Auto) Baso % (Auto) Lymph # (Auto) [place] # (Auto) Eos # (Auto) Baso # (Auto) Abs Immat Gran (auto) Absolute Neuts (auto) Absolute Nucleated RBC Nucleated RBC % (auto) PT 12.8 INR 1.1 Sodium Potassium Chloride Carbon Dioxide Anion Gap BUN Creatinine Estim Creat Clear Calc Estimated GFR Random Glucose Calcium Total Bilirubin AST ALT Alkaline Phosphatase Total Protein Albumin Urine Color Urine Appearance Urine pH Ur Specific [place] Urine Protein Urine Glucose (UA) Urine Ketones Urine Blood Urine Nitrite Ur Leukocyte Esterase Urine RBC Urine WBC Ur Squamous Epith Cells Urine Bacteria COVID-19 ([facility]) COVID-19 Clin Com Blood Type O Positive Antibody Screen NEGATIVE Airway Mallampati Class: III TM Dist: >3cm Neck ROM: Full Loose/Missing/Broken Teeth: Yes (Poor dentition ) Heart: S1, S2 Lungs: b/l breath sounds Assessment and Plan Assessment Anesthesia Assessment: Anesthesia Plan Discussed and Chart Reviewed Final Anesthetic Review Family History of Problems with Anesthesia: No History of Problems with Anesthesia: No NPO: Yes ASA Class: III Final Preanesthetic Review: Meds/Allgs Chart Reviewed, Consent Obtained/Reviewed and Anes Risks/Benef Reviewed Patient Risk: High Procedure Risk: Intermediate Anesthetic Plan Anesthetic Plan: GA Disposition: Inp. Admit - Standard Bed
--- NOTE | 2021-11-12 13:57 | MHC.CM.PN ---
CM RECEIVED MESSAGES VIA [facility], RACHEL CONNOR AND [facility] CAN OFFER PT A BED WHEN READY FOR D/C AND [facility] IS UNABLE TO OFFER, CM WILL DISCUSS W/GRETTA FLOREZ WHEN SHE IS IN TO VISIT TOMORROW MORNING.
--- NOTE | 2021-11-12 16:00 | MHC.SHP ---
Pre-Procedural Eval Section A Date of Service: 11/12/21 The patient is an INPATIENT: Yes Changes since office visit: Yes Patient answered all questions; No Cold of Flu in the past 2 weeks, No New Medical Problems and No Changes in Medication The History & Physical has been completed within 30 days and I have reviewed it.: No Section B Chief Complaint: R femoral fx Allergies: Allergies Allergy/AdvReac Type Severity Reaction Status Date / Time atorvastatin [Lipitor] Allergy Unknown Unknown Verified 10/08/21 10:36 ciprofloxacin [Cipro] Allergy Unknown nausea Verified 10/08/21 10:36 ezetimibe [Zetia] Allergy Unknown Unknown Verified 10/08/21 10:36 pravastatin [Pravachol] Allergy Unknown Unknown Verified 10/08/21 10:36 Septra Allergy Unknown Unknown Verified 10/08/21 10:36 simvastatin Allergy Unknown Unknown Verified 10/08/21 10:36 Plan I have reviewed the history and physical and performed a pertinent physical examination on my patient. No changes have occurred unless specified.
--- NOTE | 2021-11-12 16:02 | PM.OP ---
Brief Operative Note Date of Service: 11/12/21 Pre-op diagnosis: Right femoral neck fracture Post-op diagnosis: same Procedure: Right hip hemiarthroplasty Implants: [place] 44 + 4 bipolar with #3 127 degree Accolade Surgeon: David Alvarado MD Anesthesia: GETA and local Was an Electronics Research Engineer used for this Procedure?: No Estimated blood loss (mL): 250 IV fluids (mL): 800 Pathology: other Condition: stable Disposition: PACU
--- NOTE | 2021-11-12 16:08 | W.PM.OPN ---
Operative Note Operative Note Date of Service: 11/12/21 Narrative: Date of Service: 11/12/21 Pre-op diagnosis: Right femoral neck fracture Post-op diagnosis: same Procedure: Right hip hemiarthroplasty Implants: [place] 44 + 4 bipolar with #3 127 degree Accolade Surgeon: David Alvarado MD Anesthesia: GETA and local Was an Research Laboratory Specialist used for this Procedure?: No Estimated blood loss (mL): 250 IV fluids (mL): 800 Pathology: other Condition: stable Disposition: PACU Procedure in detail: Patient was brought to the operative room placed in the left lateral decubitus position. All bony prominences were well padded and the was prepped and draped in standard sterile fashion. IV antibiotics per weight were administered and a time-out was called to identify proper site proper procedure proper surgeon. Radiographs were available and confirmed. I began by making a curvilinear incision over the posterolateral aspect of the greater trochanter. Dissection was taken down to the tensor fascia which was incised in line with the incision and a Charnley retractor was placed. The posterior nueral structurew were protected. The hip was internally rotated and the external rotators were identified. THe remaining circumflex vessels were cauterized and a full-thickness capsular/external rotator layer was developed in a hockey-stick fashion starting just proximal to the piriformis. This layer was tagged and the displaced femoral neck fracture was identified. Clean-up cuts was performed while protecting the posterolateral soft tissues and the head was removed and measured (__44___ mm) on the back table. I then copiously irrigated the acetabulum and removed all bony fragments. Once this was done I used a cookie cutter to lateralize and a Charnley awl to identify the canal and then sequentially broached up to a 127 deg #3. I then trialed with a standard head and a bipolar component matching the femoral head size. I was satisfied with the range of motion and stability and length. Therefore I removed all instrumentation and copiously irrigated. I then placed my final femoral implant and then retrialed. I was satisfied with the +4 bipolar implant. My final bipolar components were then placed. I closed the capsular layer with FiberWire and then, after a three minute iodine soak and I performed a layered closure, including the capsule, with karyna on skin. The patient was placed in sterile dressing extubated brought to recovery room in stable condition there were no known complications.
[2021-11-12] MEDS: ondansetron HCL 4 MG/2 ML VIAL IVPUSH (17:50)
--- NOTE | 2021-11-12 17:55 | PC.NURSE ---
Pt c/o nausea, administered 4mg zofran iv push at 1750 per MD Hunt. She had zofran in the OR at 1540 and order is PRN q 8 hours, but Dr. Hunt authorized the early dose.
[2021-11-12] MEDS: Metoprolol Tartrate 25 MG TABLET PO (20:59)
[2021-11-13] VITALS (8 sets, daily range): BP systolic 143–182; BP diastolic 57–74; PULSE 79–92; RESP 17–20; TEMP 36.1–38.1; O2SAT 95–96
[2021-11-13] MEDS: 0.9 % Sodium Chloride Flush 3 ML SYRINGE IVFLUSH ×4 (01:00→19:26)
[2021-11-13 07:48] LABS: MANUAL DIFF FLAG NO
[2021-11-13 07:52] LABS: Basophils Percent Auto 0.1 % (0-2); Hematocrit 33.9 % (37.0-47.0); Hemoglobin 11.2 g/dl (12.0-16.0); Imm Gran Abs Auto 0.04 X10*3/uL (0.00-0.03); Imm Gran Pct Auto 0.3 % (0.0-0.4); Lymphocytes Absolute Auto 0.8 X10*3/uL (1.2-4.9); Lymphocytes Percent Auto 6.5 % (20-40); Mean Corpuscular Hemoglobin 31.6 pg (27.0-33.0); Mean Corpuscular Volume 95.8 fL (80.0-98.0); Mean Platelet Volume 10.3 fL (9.4-12.3); Monocytes Absolute Auto 0.9 X10*3/uL (0.1-1.2); Monocytes Percent Auto 7.7 % (2-11); Neutrophils Absolute Auto 9.9 x10*3/uL (2.0-8.3); Neutrophils Percent Auto 85.4 % (45-73); Platelet Count 182 X10*3/uL (160-400); Red Blood Count 3.54 X10*6/uL (4.20-5.50); Red Cell Distribution Width 12.8 % (11.0-16.0); White Blood Count 11.6 X10*3/uL (4.8-10.8)
[2021-11-13 08:13] LABS: Anion Gap 9 (12-20); Blood Urea Nitrogen 15 mg/dL (9-16); Carbon Dioxide 25 mmol/L (22-29); Chloride 105 mmol/L (96-108); Creatinine Clr Calc Pharmacy 39.6; Estimated Glomerular Filt Rate > 60; Glucose Random 196 mg/dL (60-115); Potassium 4.1 mmol/L (3.3-5.1); Sodium 135 mmol/L (135-145)
[2021-11-13 08:25] LABS: Calcium 8.6 mg/dL (8.4-10.2)
[2021-11-13] MEDS: Metoprolol Succinate ER 25 MG TAB.ER.24H PO (08:27)
[2021-11-13] MEDS: Multivitamin TABLET 1 TAB PO (08:28)
[2021-11-13] MEDS: lisinopriL 20 MG TABLET PO (08:28)
--- NOTE | 2021-11-13 08:56 | PM.PNORT ---
Subjective Subjective Date of Service: 11/13/21 Interval history: Postop day 1 status post right hip hemiarthroplasty No overnight events She is resting comfortably in bed and has minimal pain Denies shortness of breath, palpitations or chest pain. Physical Exam Vital Signs: Vital Signs: Last Vital Signs Temp 97.7 F 11/13/21 08:00 Pulse 88 11/13/21 08:00 Resp 17 11/13/21 08:00 BP 161/70 H 11/13/21 08:00 Pulse Ox 96 11/13/21 08:00 BMI result Body Mass Index 20.3 Const: General: cooperative, healthy appearing and no acute distress Resp: Effort & Inspection: normal respiratory effort and able to speak in complete sentences Cardio: Rate: regular rate Peripheral pulses: Peripheral pulses 2+ throughout GI: Palpation (GI): Soft to palpation Skin: General skin exam: no rashes or lesions noted Extrem: Other: Bandage clean dry and intact. [place] intact. No erythema or effusion. Calf supple nontender. Neurovascularly intact. Procedures Date of Service Date of Service: 11/13/21 Progress Note: A&P Assessment and plan (1) Fracture of femoral neck, right: Status: Acute Assessment and Plan: Continue pain mgmnt Begin lovenox for dvt ppx begin PT/OT for RT Hip hemiarthroplasty Dispo planning-Pending PT eval, pain mgmnt Time Spent With Patient Time: Total time spent is greater than 50% in coordination of care (as documented) at patient's floor/unit and/or counseling patient: Quality Stroke Does the patient have a stroke diagnosis?: No VTE Prior VTE?: No VTE Risk Level:: Medical - moderate - high VTE Device Contraindication: N/A - Device Ordered VTE Drug Contraindication: Treatment Not Indicated
--- NOTE | 2021-11-13 10:55 | HO.PM.IMPN ---
Subjective Subjective Date of Service: 11/13/21 Interval History: POD#1 R hemiarthroplasty Pain controlled No chest discomfort No dyspnea No N/V Review of Systems Review of Systems: Yes all other systems are reviewed and are negative Physical Exam Vital Signs: Vital Signs: Last Vital Signs Temp 97.7 F 11/13/21 08:00 Pulse 88 11/13/21 10:34 Resp 17 11/13/21 08:00 BP 161/70 H 11/13/21 10:34 Pulse Ox 96 11/13/21 10:34 BMI result Body Mass Index 20.3 Gen: in pain HEENT: sclera anicteric, moist mucus membranes Neck: supple Lungs: clear to auscultation bilaterally Heart: regular rate and rhythm, no murmurs Abd: soft, non-tender, non-distended Ext: RLE surgical dressing dry, neurovascularly intact Skin: warm/well-perfused Neuro: alert and oriented x3, no focal findings Psych: appropriate affect Objective Data Active Medications Acetaminophen (Acetaminophen 325 Mg Tablet) 650 mg PO Q6H PRN PRN Reason: Pain, Mild (Pain Scale 1-3) Enoxaparin Sodium (Enoxaparin Sodium 40 Mg/0.4 Ml Syringe) 40 mg SUBCUT Q24H [facility] Fentanyl (Fentanyl Citrate/Pf 100 Mcg/2 Ml Vial) 25 mcg IVPUSH Q5M PRN; Protocol PRN Reason: Pain, Moderate (Pain Scale 4-6 Lisinopril (Lisinopril 20 Mg Tablet) 20 mg PO DAILY [facility]; Protocol Last Admin: 11/13/21 08:28 Dose: 20 mg Documented by: TOM Metoprolol Succinate (Metoprolol Succinate Er 25 Mg Tab.Er.24h) 25 mg PO DAILY [facility]; Protocol Last Admin: 11/13/21 08:27 Dose: 25 mg Documented by: TOM Morphine Sulfate (Morphine Sulfate 2 Mg/Ml Cartridge) 2 mg IVPUSH Q4H PRN; Protocol PRN Reason: Pain, Severe (Pain Scale 7-10) Last Admin: 11/12/21 10:30 Dose: 2 mg Documented by: AQUILES Multivitamins/Vitamin C (Multivitamin Tablet) 1 tab PO DAILY [facility] Last Admin: 11/13/21 08:28 Dose: 1 tab Documented by: TOM Non-Formulary Medication (Latanoprostene Bunod [Vyzulta]) 1 drop EYE-BOTH BEDTIME [facility] Ondansetron HCl (Ondansetron Hcl 4 Mg/2 Ml Vial) 4 mg IVPUSH Q8H PRN PRN Reason: Nausea and Vomiting Last Admin: 11/12/21 17:50 Dose: 4 mg Documented by: AQUILES Oxycodone HCl (Oxycodone Hcl Immed Release 5 Mg Tablet) 5 mg PO Q6H PRN PRN Reason: Pain, Severe (Pain Scale 7-10) Last Admin: 11/12/21 12:32 Dose: 5 mg Documented by: AQUILES Sodium Chloride (0.9 % Sodium Chloride Flush 3 Ml Syringe) 3 ml IVFLUSH QSHIFT [facility] Last Admin: 11/13/21 08:28 Dose: 3 ml Documented by: TOM Timolol Maleate (Timolol Maleate 0.5 % Oph Peace 5 Ml Drbtl) 1 drop EYE-BOTH DAILY [facility] Last Admin: 11/13/21 08:29 Dose: Not Given Documented by: TOM Non-Admin Reason: Patient Refused Labs CBC & Chem 7: 11/13/21 07:43 11/13/21 07:43 Labs: Laboratory Results - last 24 hr 11/13/21 11/13/21 07:43 07:43 MCV 95.8 MCH 31.6 MCHC 33.0 RDW 12.8 Plt Count 182 MPV 10.3 Immature Gran % (Auto) 0.3 Neut % (Auto) 85.4 H Lymph % (Auto) 6.5 L [place] % (Auto) 7.7 Eos % (Auto) 0.0 Baso % (Auto) 0.1 Lymph # (Auto) 0.8 L [place] # (Auto) 0.9 Eos # (Auto) 0.0 Baso # (Auto) 0.0 Abs Immat Gran (auto) 0.04 H Absolute Neuts (auto) 9.9 H Absolute Nucleated RBC 0.000 Nucleated RBC % (auto) 0.0 Anion Gap 9 L Estim Creat Clear Calc 39.6 Estimated GFR > 60 Random Glucose 196 H Calcium 8.6 D Microbiology Microbiology Results: Microbiology 11/11/21 17:50 Urine Culture - Final Urine clean catch - Urine armando top Escherichia coli 11/11/21 18:55 Blood Culture - Preliminary Blood - Venous No growth after 24 hours. 11/11/21 18:55 Blood Culture - Preliminary Blood - Venous No growth after 24 hours. Assessment and Plan (1) Fracture of femoral neck, right: Status: Acute Plan hospital d#3 86yo independently living F with HTN, CAD, and osteoporosis presenting with a displaced subcapital fracture of the right proximal femur after a mechanical fall # hip fracture - POD#1 R hemiarthroplasty, pain control with APAP/oxycodone/IV morphine, PT, VTE ppx # HTN # CAD - continue metoprolol and lisinopril # osteoporosis - alendronate # VTE ppx - LMWH # dispo - AIR In my clinical judgment, the patient requires continued hospitalization for the following reasons: postop Quality Stroke Does the patient have a stroke diagnosis?: No VTE Prior VTE?: No VTE Risk Level:: Medical - moderate - high VTE Device Contraindication: N/A - Device Ordered VTE Drug Contraindication: Treatment Not Indicated
--- NOTE | 2021-11-13 14:09 | MHC.CM.PN ---
EMR REVIEWED, CM MET W/PT AND DIL/HCP GAUTAM TO DISCUSS DCP AND BED OFFERS, ALTHOUGH PT HAS RECOMMENDED ACUTE REHAB, PT AND GAUTAM PREFER TO ACCEPT BED OFFER AT [facility]ARMER CANNOT OFFER A BED. ANTIC TUESDAY D/C TO [facility] W/ACTION FOR BLS TRANSPORT
--- NOTE | 2021-11-13 14:36 | HO.POSTANES ---
Post Anesthesia Evaluation Post Anesthesia Evaluation Vital Signs: Vital Signs Temp Pulse Resp BP Pulse Ox 11/13/21 11:16 96.9 F 91 17 163/74 H 96 11/13/21 10:34 88 161/70 H 96 11/13/21 08:00 97.7 F 88 17 161/70 H 96 11/13/21 03:38 98.6 F 79 20 182/66 H 96 Anesthesia: General Mental Status: Awake Pain Control: Satisfactory Nausea/Vomiting: None Hydration: Adequate Anesthesia-Related Issues: No Anes. Related Issues
[2021-11-13] MEDS: Enoxaparin Sodium 40 MG/0.4 ML SYRINGE SUBCUT (15:32)
[2021-11-13] MEDS: Acetaminophen 325 MG TABLET 650 MG PO (16:22)
[2021-11-14] VITALS (9 sets, daily range): BP systolic 149–175; BP diastolic 65–81; PULSE 85–97; RESP 16–18; TEMP 36.6–37.9; O2SAT 95–100
[2021-11-14 06:06] LABS: Hematocrit 31.9 % (37.0-47.0); Hemoglobin 10.7 g/dl (12.0-16.0)
[2021-11-14] MEDS: Multivitamin TABLET 1 TAB PO (07:57)
[2021-11-14] MEDS: lisinopriL 20 MG TABLET PO (07:57)
[2021-11-14] MEDS: 0.9 % Sodium Chloride Flush 3 ML SYRINGE IVFLUSH ×3 (07:59→23:00)
[2021-11-14] MEDS: Metoprolol Succinate ER 25 MG TAB.ER.24H PO (07:59)
--- NOTE | 2021-11-14 09:58 | HO.PM.IMPN ---
Subjective Subjective Date of Service: 11/14/21 Interval History: low-grade fever last night and this AM but feels well did well with PT today pain contrlled Review of Systems Review of Systems: Yes all other systems are reviewed and are negative Physical Exam Vital Signs: Vital Signs: Last Vital Signs Temp 100.3 F 11/14/21 07:44 Pulse 88 11/14/21 07:44 Resp 16 11/14/21 07:44 BP 170/78 H 11/14/21 07:44 Pulse Ox 98 11/14/21 07:44 BMI result Body Mass Index 20.3 Gen: in pain HEENT: sclera anicteric, moist mucus membranes Neck: supple Lungs: clear to auscultation bilaterally Heart: regular rate and rhythm, no murmurs Abd: soft, non-tender, non-distended Ext: R hip surgical dressing dry, neurovascularly intact Skin: warm/well-perfused Neuro: alert and oriented x3, no focal findings Psych: appropriate affect Objective Data Active Medications Acetaminophen (Acetaminophen 325 Mg Tablet) 650 mg PO Q6H PRN PRN Reason: Pain, Mild (Pain Scale 1-3) Last Admin: 11/13/21 16:22 Dose: 650 mg Documented by: TOM Enoxaparin Sodium (Enoxaparin Sodium 40 Mg/0.4 Ml Syringe) 40 mg SUBCUT Q24H FORMERLY [facility], [facility]–1983 Last Admin: 11/13/21 15:32 Dose: 40 mg Documented by: TOM Fentanyl (Fentanyl Citrate/Pf 100 Mcg/2 Ml Vial) 25 mcg IVPUSH Q5M PRN; Protocol PRN Reason: Pain, Moderate (Pain Scale 4-6 Lisinopril (Lisinopril 20 Mg Tablet) 20 mg PO DAILY FOR[facility]LY [facility], [facility]1983; Protocol Last Admin: 11/14/21 07:57 Dose: 20 mg Documented by: TOM Metoprolol Succinate (Metoprolol Succinate Er 25 Mg Tab.Er.24h) 25 mg PO DAILY FOR[facility]LY [facility], [facility]–1983; Protocol Last Admin: 11/14/21 07:59 Dose: 25 mg Documented by: TOM Morphine Sulfate (Morphine Sulfate 2 Mg/Ml Cartridge) 2 mg IVPUSH Q4H PRN; Protocol PRN Reason: Pain, Severe (Pain Scale 7-10) Last Admin: 11/12/21 10:30 Dose: 2 mg Documented by: AQUILES Multivitamins/Vitamin C (Multivitamin Tablet) 1 tab PO DAILY FOR[facility]LY [facility], [facility] Last Admin: 11/14/21 07:57 Dose: 1 tab Documented by: TOM Ondansetron HCl (Ondansetron Hcl 4 Mg/2 Ml Vial) 4 mg IVPUSH Q8H PRN PRN Reason: Nausea and Vomiting Last Admin: 11/12/21 17:50 Dose: 4 mg Documented by: AQUILES Oxycodone HCl (Oxycodone Hcl Immed Release 5 Mg Tablet) 5 mg PO Q6H PRN PRN Reason: Pain, Severe (Pain Scale 7-10) Last Admin: 11/12/21 12:32 Dose: 5 mg Documented by: AQUILES Sodium Chloride (0.9 % Sodium Chloride Flush 3 Ml Syringe) 3 ml IVFLUSH QSHIFT [facility], [facility] Last Admin: 11/14/21 07:59 Dose: 3 ml Documented by: TOM Timolol Maleate (Timolol Maleate 0.5 % Oph Peace 5 Ml Drbtl) 1 drop EYE-BOTH DAILY FOR[facility]LY [facility], [facility]–1983 Last Admin: 11/14/21 08:06 Dose: Not Given Documented by: TOM Non-Admin Reason: Patient Refused Labs CBC & Chem 7: 11/14/21 05:48 11/13/21 07:43 Microbiology Microbiology Results: Microbiology 11/11/21 18:55 Blood Culture - Preliminary Blood - Venous No growth after 48 hours. 11/11/21 18:55 Blood Culture - Preliminary Blood - Venous No growth after 48 hours. 11/11/21 17:50 Urine Culture - Final Urine clean catch - Urine armando top Escherichia coli Assessment and Plan (1) Fracture of femoral neck, right: Status: Acute Plan hospital d#4 86yo independently living F with HTN, CAD, and osteoporosis presenting with a displaced subcapital fracture of the right proximal femur after a mechanical fall # hip fracture - POD#2 R hemiarthroplasty, pain control with APAP/oxycodone/IV morphine, PT, VTE ppx # E coli UTI - FQ resistant. got 1 dose ceftriaxone. will complete course with cefuroxime d#07/24 # HTN # CAD - continue metoprolol and lisinopril # osteoporosis - alendronate # VTE ppx - LMWH # dispo - AIR vs STr In my clinical judgment, the patient requires continued hospitalization for the following reasons: postop fever Quality Stroke Does the patient have a stroke diagnosis?: No VTE Prior VTE?: No VTE Risk Level:: Medical - moderate - high VTE Device Contraindication: N/A - Device Ordered VTE Drug Contraindication: Treatment Not Indicated
[2021-11-14] MEDS: Enoxaparin Sodium 40 MG/0.4 ML SYRINGE SUBCUT (15:00)
--- NOTE | 2021-11-14 21:08 | P.PNOP_ITS ---
Subjective Subjective Date of Service: 11/14/21 Interval history: POD 2 s/p right hip hemiarthroplasty no overnight events resting in bed states PT was ok, no concerns today denies sob, cp, palpitations Physical Exam Vital Signs: Vital Signs: Last Vital Signs Temp 99.2 F 11/14/21 19:22 Pulse 85 11/14/21 19:45 Resp 18 11/14/21 19:22 BP 149/72 H 11/14/21 19:45 Pulse Ox 96 11/14/21 19:22 BMI result Body Mass Index 20.3 Const: General: cooperative, healthy appearing and no acute distress Resp: Effort & Inspection: normal respiratory effort and able to speak in complete sentences Cardio: Rate: regular rate Peripheral pulses: Peripheral pulses 2+ throughout GI: Palpation (GI): Soft to palpation Skin: General skin exam: no rashes or lesions noted Extrem: Other: bandage clean dry and intact. Manito intact. No erythema or effusion. Calf supple nontender. Neurovascularly intact. Procedures Date of Service Date of Service: 11/14/21 Progress Note: A&P Assessment and plan (1) Fracture of femoral neck, right: Status: Acute Assessment and Plan: * Continue pain mgmnt * continue lovnox for dvt ppx * continue PT/OT for rt hip hemiarthroplasty * Dispo planning-Pending PT eval, pain mgmnt Time Spent With Patient Time: Total time spent is greater than 50% in coordination of care (as documented) at patient's floor/unit and/or counseling patient: Quality Stroke Does the patient have a stroke diagnosis?: No VTE Prior VTE?: No VTE Risk Level:: Medical - moderate - high VTE Device Contraindication: N/A - Device Ordered VTE Drug Contraindication: Treatment Not Indicated
[2021-11-15] VITALS: BP 153/74; PULSE 84; RESP 18; TEMP 37.3; O2SAT 97
[2021-11-15 04:00] VITALS: BP 142/74; PULSE 70; RESP 18; TEMP 37.2; O2SAT 98
[2021-11-15 07:54] VITALS: BP 160/71; PULSE 87; RESP 17; TEMP 37.5; O2SAT 96
--- NOTE | 2021-11-15 09:28 | MHC.CM.PN ---
PT MEDICALLY CLEARED TO DO TO STR AT [facility] W/ACTION FOR BLS TRANSPORT. CM HAS CONTACTED PT'S DIL/HCP GAUTAM AT 9::33AM [phone] TO UPDATE HER ON D/C PLAN, BOTH PT AND GAUTAM ARE AGREEABLE, NSG, UNIT AND HOSPITALIST AWARE.
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
[2021-11-15] MEDS: Multivitamin TABLET 1 TAB PO (09:51)
[2021-11-15] MEDS: lisinopriL 20 MG TABLET PO (09:51)
[2021-11-15] MEDS: Metoprolol Succinate ER 25 MG TAB.ER.24H PO (09:51)
[2021-11-15] MEDS: Acetaminophen 325 MG TABLET 650 MG PO (09:52)
[2021-11-15] MEDS: 0.9 % Sodium Chloride Flush 3 ML SYRINGE IVFLUSH (09:53)
[2021-11-15 10:34] LABS: COVID-19 Test Negative (Negative); IDNOW Serial# 16C4AD1C
== END 2021-11-15 13:13 | disposition skilled nursing facility (03) | DRG 522 ==
LOC: HO.ED 16:54 → HO.EDOVER 18:16 → HO.S3 19:01
PROVIDERS: Orthopaedic Surgery; Physician Assistant; Admitting Provider Family Medicine; Emergency Provider Emergency Medicine; PCP Internal Medicine; Visit Provider Family Medicine
PROC: 0SRR0JA Replacement of Right Hip Joint, Femoral Surface with Synthetic Substitute, Uncemented, Open Approach (ICD-10-PCS; CPT 27125; principal; 2021-11-12 14:30)
DX: S72.011A Unspecified intracapsular fracture of right femur, initial encounter for closed fracture (principal); N39.0 Urinary tract infection, site not specified; W01.0XXA Fall on same level from slipping, tripping and stumbling without subsequent striking against object, initial encounter; M81.0 Age-related osteoporosis without current pathological fracture; Z66 Do not resuscitate; I10 Essential (primary) hypertension; I25.10 Atherosclerotic heart disease of native coronary artery without angina pectoris; Z20.822 Contact with and (suspected) exposure to COVID-19; Z88.1 Allergy status to other antibiotic agents; Z88.8 Allergy status to other drugs, medicaments and biological substances; Z79.899 Other long term (current) drug therapy
CPT/HCPCS: 36415; 71045; 73502; 77063; 77067; 77080; 80048; 80053; 80061; 81001; 82306; 82607; 82746; 83036; 84439; 84443; 85014; 85018; 85025; 85027; 85610; 86780; 86850; 86900; 86901; 87040; 87086; 87088; 87186; 87635; 88304; 88305; 88311; 93005; 96361; 96365; 96375; 97110; 97116; 97162; 97165; 97530; 99285; C1758; C1776; J0690; J0696; J1100; J1170; J1650; J2270; J2370; J2405; J2795; J3010

== ENCOUNTER 2021-11-26 07:32 | Outpatient (REF) | payer MEDICARE, SELFPAY ==
--- NOTE | ~2021-11-26 | XR_ITS ---
EXAMINATION: XR PELVIS CLINICAL INFORMATION: Pain right hip. Postop COMPARISON: . Right hip 11/11/2021 TECHNIQUE: AP view of the pelvis. FINDINGS: There is a total right hip prosthesis with prosthetic components in satisfactory alignment. Immediate postoperative changes are seen. No bony abnormality seen. Rest of the pelvis and left hip joint appears normal. 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
== END 2021-11-26 07:33 | disposition home or self-care (01) ==
LOC: HO.HOSX 07:32
PROVIDERS: Visit Provider Orthopaedic Surgery
DX: S72.001D Fracture of unspecified part of neck of right femur, subsequent encounter for closed fracture with routine healing (principal)
CPT/HCPCS: 72170; 99212

== ENCOUNTER 2022-01-07 05:39 | Outpatient (REF) | payer MEDICARE, SELFPAY ==
--- NOTE | ~2022-01-07 | XR_ITS ---
EXAMINATION: XR PELVIS AND RIGHT HIP CLINICAL INFORMATION: Pain right hip COMPARISON: None TECHNIQUE: AP pelvis one view. Right hip 2 views. FINDINGS: AP PELVIS: There is a total right hip prosthesis with prosthetic components in satisfactory alignment. The left hip joint space is maintained normal. SI joints are normal. There is no visible fracture or dislocation seen. There is no lytic process. The soft tissues are normal. RIGHT HIP: Two (2) views of right hip reveal total right hip prosthesis in alignment. There is no periprostatic fracture or loosening. The soft tissues are normal. XR/XR hip RT min 2V IMPRESSION: 1. 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 2. No visible acute fracture, dislocation or subluxation seen.
--- NOTE | ~2022-01-07 | XR_ITS ---
EXAMINATION: XR PELVIS AND RIGHT HIP CLINICAL INFORMATION: Pain right hip COMPARISON: None TECHNIQUE: AP pelvis one view. Right hip 2 views. FINDINGS: AP PELVIS: There is a total right hip prosthesis with prosthetic components in satisfactory alignment. The left hip joint space is maintained normal. SI joints are normal. There is no visible fracture or dislocation seen. There is no lytic process. The soft tissues are normal. RIGHT HIP: Two (2) views of right hip reveal total right hip prosthesis in alignment. There is no periprostatic fracture or loosening. The soft tissues are normal. XR/XR pelvis 1-2V IMPRESSION: 1. 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 2. No visible acute fracture, dislocation or subluxation seen.
== END 2022-01-07 05:40 | disposition home or self-care (01) ==
LOC: HO.HOSX 05:39
PROVIDERS: Visit Provider Physician Assistant
DX: M25.551 Pain in right hip (principal)
CPT/HCPCS: 72170; 73502

== ENCOUNTER → 2022-04-09 13:14 | Outpatient (BNVA) | payer MEDICARE, SELFPAY | PROVIDERS: PCP Internal Medicine; Visit Provider Physician Assistant | DX: S72.001A Fracture of unspecified part of neck of right femur, initial encounter for closed fracture (principal) | CPT/HCPCS: 99212 ==

== ENCOUNTER 2023-04-11 15:29 | Outpatient (REF) | payer MEDICARE, SELFPAY | END 2023-04-11 15:30 | disposition home or self-care (01) | LOC: HO.HOSX 15:29 | PROVIDERS: Visit Provider Physician Assistant | DX: Z13.89 Encounter for screening for other disorder (principal) ==

== ENCOUNTER 2024-04-24 19:20 | Inpatient (IN) | payer MEDICARE, MEDICAID, SELFPAY ==
--- NOTE | ~2024-04-24 | CT_ITS ---
EXAMINATION: CT HEAD WITHOUT IV CONTRAST, CT CERVICAL SPINE WITHOUT IV CONTRAST INDICATION INFORMATION: fall COMPARISON: None TECHNIQUE: Separate noncontrast CT examinations of the head and cervical spine were performed. Coronal and sagittal images were created for each examination at the technologist workstation. This CT examination was performed using dose optimization techniques as appropriate, variously including the following: *Automated exposure control *Adjustment of mA and/or kV according to patient size (this includes techniques or standardized protocols for targeted exams where dose is matched to indication/reason for exam; i.e. extremities or head) *Use of iterative reconstruction technique DLP: 821 mGy-cm FINDINGS: Head: No acute osseous or soft tissue abnormality. The mastoids are clear. 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 There is no evidence of acute intracranial hemorrhage or territorial infarction. No abnormal mass effect or midline shift is seen. Kuo to white matter differentiation is well preserved. No extra-axial fluid collections are identified. No hydrocephalus. Proportional prominence of the ventricles and sulcal spaces is consistent with mild volume loss. Patchy periventricular and deep white matter hypoattenuation is consistent with mild small vessel ischemic changes. 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 Cervical spine: There is no evidence of acute cervical spine fracture. Vertebral bodies remain normal in height. Exaggerated cervical lordosis. Trace anterolisthesis of C4 on C5 and C6 on C7. Advanced multilevel cervical spondylosis. No pre- or paravertebral soft tissue abnormality is identified. Visualized portions of the lung apices are unremarkable. The thyroid gland is unremarkable. CT/CT cervical spine wo IV con IMPRESSION: 1. No acute intracranial abnormality. 2. No cervical spine fracture or traumatic malalignment. Electronically signed by: Fahad Joshi MD 04/24/2024 10:22 PM EDT
--- NOTE | ~2024-04-24 | XR_ITS ---
EXAMINATION: XR HIP, LEFT CLINICAL INFORMATION: Fall. COMPARISON: Pelvic radiograph 01/07/2022. TECHNIQUE: Two views of the left hip. FINDINGS: Impacted and displaced left femoral neck fracture. No discrete additional fractures. Partially seen intact right hip arthroplasty. XR/XR hip LT w PEL1V IMPRESSION: Impacted and displaced left femoral neck fracture. Electronically signed by: Marlene Samano MD 04/24/2024 11:13 PM EDT
--- NOTE | ~2024-04-24 | XR_ITS ---
EXAMINATION: XR CHEST CLINICAL INFORMATION: Fall, hypoxia. COMPARISON: Chest radiograph 11/11/2021. TECHNIQUE: Frontal view of the chest was obtained. FINDINGS: Normal appearance of the cardiomediastinal silhouette. No focal consolidation, pleural effusion or pneumothorax. No acute osseous findings. Visualized upper abdomen is within normal limits. XR/XR chest 1V IMPRESSION: 1. No acute cardiopulmonary findings. 2. No acutely displaced rib fractures. Electronically signed by: Marlene Samano MD 04/24/2024 11:12 PM EDT
[2024-04-24 19:30] VITALS: BP 150/70; PULSE 82; O2SAT 93
--- NOTE | 2024-04-24 19:59 | ED.FALL ---
HPI - Fall General Chief Complaint: Fall Stated Complaint: FALL EARLIER TODAY [facility] Time Seen by Provider: 04/24/24 19:52 Source: patient, EMS and RN notes reviewed Mode of arrival: EMS History of Present Illness ED Provider: clover VICENTE Narrative: Patient's history of dementia walks with walker came here from half-way as she started walking without using a walker and fell in the hallway was unwitnessed but when nurse tried to lift her up she complaining of pain in the left hip x-ray was done but report is not available Related Data Home Medications ?Medication ?Instructions ?Recorded ?Confirmed latanoprostene bunod 0.024 % eye 1 drp ophthalmic (eye) BEDTIME 11/11/21 04/25/24 drops (Vyzulta) bisacodyl 10 mg rectal suppository 10 mg MO DAILY PRN Bowel Management 04/25/24 04/25/24 furosemide 40 mg tablet 40 mg PO DAILY 04/25/24 04/25/24 melatonin 3 mg tablet 3 mg PO BEDTIME 04/25/24 04/25/24 metoprolol succinate 50 mg 50 mg PO DAILY 04/25/24 04/25/24 tablet,extended release 24 hr mirtazapine 7.5 mg tablet 7.5 mg PO BEDTIME 04/25/24 04/25/24 ondansetron HCl 4 mg tablet 4 mg PO Q6H PRN Nausea And Vomiting 04/25/24 04/25/24 potassium chloride 20 mEq 20 meq PO BID 04/25/24 04/25/24 tablet,extended release(part/cryst) sennosides 8.6 mg tablet (senna) See Rx Instructions .Route 04/25/24 04/25/24 .COMPLEX PRN Bowel Management timolol maleate 0.25 % eye drops See Rx Instructions .Route .COMPLEX 04/25/24 04/25/24 Previous Rx's ?Medication ?Instructions ?Recorded lisinopril 20 mg tablet 20 mg PO DAILY #90 caps 10/08/21 acetaminophen 325 mg tablet 650 mg (2 x 325 mg) PO Q6H PRN 11/15/21 Pain, Mild (Pain Scale 1-3) #30 tabs Allergies Allergy/AdvReac Type Severity Reaction Status Date / Time atorvastatin [Lipitor] Allergy Unknown Unknown Verified 04/24/24 20:12 ciprofloxacin [Cipro] Allergy Unknown nausea Verified 04/24/24 20:12 ezetimibe [Zetia] Allergy Unknown Unknown Verified 04/24/24 20:12 pravastatin [Pravachol] Allergy Unknown Unknown Verified 04/24/24 20:12 simvastatin Allergy Unknown Unknown Verified 04/24/24 20:12 sulfamethoxazole Allergy Unknown Unknown Verified 04/24/24 20:12 [From Septra] trimethoprim [From Septra] Allergy Unknown Unknown Verified 04/24/24 20:12 Review of Systems Review of Systems: Yes Unobtainable due to mental status [facility] Past Medical History Medical History Fracture of femoral neck, right Urinary tract infection Closed hip fracture requiring operative repair Fracture of right distal radius Diverticular disease Cholelithiasis Glaucoma Vestibular neuronitis of both ears Hypertension Hypercholesterolemia Coronary artery disease Osteoporosis Surgical History Hx of nasal septoplasty History of surgery History of eye surgery History of appendectomy History of tonsillectomy History of total abdominal hysterectomy and bilateral salpingo-oophorectomy History of cataract surgery Family History Family History Father No problems noted. Mother CVD (cardiovascular disease) Hypertension Social History Social History Household Members: None Housing: House Alcohol intake: never Patient Tobacco Use Status: Never used Tobacco Smoked in Last 30 Days: No e-Cigarette/Vaping Use: Never Used Second Hand Smoke Exposure: No Use of substances other than those prescribed or required for medical reasons: No Advance Directives: Yes Advance Directives on File: Yes Advance Directives Date on File: 10/08/21 Do you have a plan to hurt others: No Plan Nutrition Risks: No Nutritional Risk service: No Current occupational status: retired Physical Exam Vital Signs: Vital Signs: Last Vital Signs Temp 100.8 F H 04/25/24 00:29 Pulse 88 04/25/24 00:29 Resp 16 04/25/24 00:29 BP 171/67 H 04/25/24 00:29 Pulse Ox 98 04/25/24 00:29 O2 Del Method Room Air 04/25/24 00:29 O2 Flow Rate 2 04/24/24 20:16 BMI result Body Mass Index 30.1 Appearance: Alert. Oriented X1-2. No acute distress. Eyes: PERRLA, ENT: Pharynx normal. Oral Mucosa moist atraumatic normocephalic Neck: Normal inspection. Neck supple. CVS: Normal heart rate and rhythm. Pulses normal. Respiratory: No respiratory distress. Equal air entry bilateral, no wheezing/rales/rhonchi Abdomen: Soft and nontender. Bowel sounds are present, no mass palpable, no CVA tenderness Skin: Skin warm and dry. Normal skin color. Normal skin turgor. Extremities: No lower extremity edema. Left leg shortened and externally rotated tenderness at greater trochanteric area and groin Neuro: Oriented X1-2. Limited lower extremity movement Medications Administered Discontinued Medications Generic Name Dose Route Start Last Admin Trade Name Freq PRN Reason Stop Dose Admin Hydralazine HCl 10 mg 04/25/24 00:06 04/25/24 00:18 Hydralazine Hcl 20 Mg/Ml Vial IVPUSH 04/25/24 00:07 10 mg ONCE ONE Administration Protocol Ceftriaxone Sodium 1 gm/ 50 mls @ 100 mls/hr 04/24/24 22:00 04/24/24 23:11 Sodium Chloride IV 04/24/24 22:29 Infused ONCE ONE Infusion Morphine Sulfate 4 mg 04/24/24 22:02 04/24/24 22:41 Morphine Sulfate 4 Mg/Ml Cartridge IVPUSH 04/24/24 22:03 4 mg ONCE ONE Administration Protocol Ondansetron HCl 4 mg 04/24/24 22:02 04/24/24 22:41 Ondansetron Hcl 4 Mg/2 Ml Vial IVPUSH 04/24/24 22:03 4 mg ONCE ONE Administration Medical Decision Making Medical Decision Making [facility] Narrative: Patient with left hip femur neck fracture status post mechanical fall will admit patient to medical service case discussed with orthopedics Differential Diagnosis Differential Diagnoses: The differential diagnosis associated with the presentation includes Admission/Observation Consideration of admission/observation: Escalation of care including admission/observation considered Consult Healthcare Provider Management of the patient was discussed with: Hospitalist Lab Data [facility] Lab Attestation statement: I reviewed the patient's lab results. 04/24/24 20:42 04/24/24 20:42 Labs: Lab Results 04/24/24 04/24/24 04/24/24 Range/Units 20:35 20:42 20:43 WBC 10.5 (4.8-10.8) X10*3/uL RBC 5.05 D (4.20-5.50) X10*6/uL Hgb 15.1 D (12.0-16.0) g/dl Hct 44.4 D (37.0-47.0) % MCV 87.9 (80.0-98.0) fL MCH 29.9 (27.0-33.0) pg MCHC 34.0 (31.0-35.0) g/dl RDW 13.5 (11.0-16.0) % Plt Count 271 D (160-400) X10*3/uL MPV 10.4 (9.4-12.3) fL Immature Gran % (Auto) 0.4 (0.0-0.4) % Neut % (Auto) 87.9 H (45-73) % Lymph % (Auto) 8.6 L (20-40) % Luce % (Auto) 2.9 (2-11) % Eos % (Auto) 0.1 (0-4) % Baso % (Auto) 0.1 (0-2) % Lymph # (Auto) 0.9 L (1.2-4.9) X10*3/uL Luce # (Auto) 0.3 (0.1-1.2) X10*3/uL Eos # (Auto) 0.0 (0.0-0.4) X10*3/uL Baso # (Auto) 0.0 (0.0-0.2) X10*3/uL Abs Immat Gran (auto) 0.04 H (0.00-0.03) X10*3/uL Absolute Neuts (auto) 9.3 H (2.0-8.3) x10*3/uL Absolute Nucleated RBC 0.000 (0.0-0.012) X10*3/uL Nucleated RBC % (auto) 0.0 (0.0-0.2) /100WBC PT (10.9-12.4) SEC INR (0.9-1.1) APTT (26.0-36.8) SEC Sodium 140 (135-145) mmol/L Potassium 4.1 (3.3-5.1) mmol/L Chloride 107 (96-108) mmol/L Carbon Dioxide 24 (22-29) mmol/L Anion Gap 13 (12-20) BUN 26 H (9-16) mg/dL Creatinine 0.86 (0.5-1.4) mg/dL Estim Creat Clear Calc 44.5 Estimated GFR > 60 Random Glucose 184 H (60-115) mg/dL Calcium 9.8 D (8.4-10.2) mg/dL Total Bilirubin 0.5 (0.0-1.0) mg/dL AST 20 (5-31) U/L ALT 18 (0-31) U/L Alkaline Phosphatase 106 (39-117) U/L Total Protein 7.5 (6.5-8.0) g/dL Albumin 4.1 (3.5-5.0) g/dL Urine Color Yellow Urine Appearance Clear Urine pH 5.5 (5.0-9.0) Ur Specific [place] 1.020 (1.005-1.025) Urine Protein Negative (Neg-Trace) mg/dL Urine Glucose (UA) Negative (Negative) mg/dL Urine Ketones Negative (Negative) mg/dL Urine Blood Negative (Negative) Urine Nitrite Positive H (Negative) Ur Leukocyte Esterase Moderate (2+) H (Negative) Urine RBC 0-2 (0-2) /HPF Urine WBC 11-20 (0-5) /HPF Ur Squamous Epith Cells 3-5 (0-2) /HPF Urine Bacteria 4+ (None Seen) Hyaline Casts 11-20 (0-2) /LPF COVID-19 (EDUARD) Negative (Negative) COVID-19 Clin Com See Note Blood Type Antibody Screen 04/24/24 04/24/24 Range/Units 22:15 22:56 WBC (4.8-10.8) X10*3/uL RBC (4.20-5.50) X10*6/uL Hgb (12.0-16.0) g/dl Hct (37.0-47.0) % MCV (80.0-98.0) fL MCH (27.0-33.0) pg MCHC (31.0-35.0) g/dl RDW (11.0-16.0) % Plt Count (160-400) X10*3/uL MPV (9.4-12.3) fL Immature Gran % (Auto) (0.0-0.4) % Neut % (Auto) (45-73) % Lymph % (Auto) (20-40) % Luce % (Auto) (2-11) % Eos % (Auto) (0-4) % Baso % (Auto) (0-2) % Lymph # (Auto) (1.2-4.9) X10*3/uL Luce # (Auto) (0.1-1.2) X10*3/uL Eos # (Auto) (0.0-0.4) X10*3/uL Baso # (Auto) (0.0-0.2) X10*3/uL Abs Immat Gran (auto) (0.00-0.03) X10*3/uL Absolute Neuts (auto) (2.0-8.3) x10*3/uL Absolute Nucleated RBC (0.0-0.012) X10*3/uL Nucleated RBC % (auto) (0.0-0.2) /100WBC PT 11.7 (10.9-12.4) SEC INR 1.0 (0.9-1.1) APTT 32.4 (26.0-36.8) SEC Sodium (135-145) mmol/L Potassium (3.3-5.1) mmol/L Chloride (96-108) mmol/L Carbon Dioxide (22-29) mmol/L Anion Gap (12-20) BUN (9-16) mg/dL Creatinine (0.5-1.4) mg/dL Estim Creat Clear Calc Estimated GFR Random Glucose (60-115) mg/dL Calcium (8.4-10.2) mg/dL Total Bilirubin (0.0-1.0) mg/dL AST (5-31) U/L ALT (0-31) U/L Alkaline Phosphatase (39-117) U/L Total Protein (6.5-8.0) g/dL Albumin (3.5-5.0) g/dL Urine Color Urine Appearance Urine pH (5.0-9.0) Ur Specific [place] (1.005-1.025) Urine Protein (Neg-Trace) mg/dL Urine Glucose (UA) (Negative) mg/dL Urine Ketones (Negative) mg/dL Urine Blood (Negative) Urine Nitrite (Negative) Ur Leukocyte Esterase (Negative) Urine RBC (0-2) /HPF Urine WBC (0-5) /HPF Ur Squamous Epith Cells (0-2) /HPF Urine Bacteria (None Seen) Hyaline Casts (0-2) /LPF COVID-19 (EDUARD) (Negative) COVID-19 Clin Com Blood Type O Positive Antibody Screen NEGATIVE Independent Interpretation I performed an independent interpretation of an: EKG Interpretation: Normal sinus rhythm heart rate 84 beats per minute normal intervals normal axis no acute ST-T no acute ischemia impression normal EKG Radiology Impression Discussion of test interpretation with radiology: I have reviewed the radiologist's reading. Radiologist Impression: [address] [address] XRay Report Signed Patient: Galina Stroud MR#: [id number] : 1935 Acct:[id number] Age/Sex: 89 / F ADM Date: 04/24/24 Loc: .ED Attending Dr: Ordering Physician: Maco Hager MD Date of Service: 04/24/24 Procedure(s): XR hip LT w PEL1V Accession Number(s): [id number] cc: Jonel Contreras MD; Maco Hager MD~ EXAMINATION: XR HIP, LEFT CLINICAL INFORMATION: Fall. COMPARISON: Pelvic radiograph 01/07/2022. TECHNIQUE: Two views of the left hip. FINDINGS: Impacted and displaced left femoral neck fracture. No discrete additional fractures. Partially seen intact right hip arthroplasty. XR/XR hip LT w PEL1V IMPRESSION: Impacted and displaced left femoral neck fracture. Discharge Plan Discharge Clinical Impression: Fracture of femoral neck, left Patient Disposition: Admitted As Inpatient
[2024-04-24 20:02] VITALS: BP 222/78; PULSE 79; RESP 16; TEMP 37.7; O2SAT 88
--- NOTE | 2024-04-24 20:02 | ECG_ITS ---
Test Reason : FALL Blood Pressure : / mmHG Vent. Rate : 084 BPM Atrial Rate : 084 BPM P-R Int : 190 ms QRS Dur : 082 ms QT Int : 366 ms P-R-T Axes : 086 035 067 degrees QTc Int : 432 ms Normal sinus rhythm Normal ECG When compared with ECG of 11-NOV-2021 16:41, No significant change was found Referred By: aMco Hager Electronically Signed By:MONICA LOVE MD
[2024-04-24 20:08] VITALS: BMI 30.1
[2024-04-24 20:16] VITALS: BP 219/68; PULSE 80; RESP 18; O2SAT 96
[2024-04-24 20:48] LABS: MANUAL DIFF FLAG NO
[2024-04-24 20:51] LABS: Basophils Percent Auto 0.1 % (0-2); Eosinophils Percent Auto 0.1 % (0-4); Hematocrit 44.4 % (37.0-47.0); Hemoglobin 15.1 g/dl (12.0-16.0); Imm Gran Abs Auto 0.04 X10*3/uL (0.00-0.03); Imm Gran Pct Auto 0.4 % (0.0-0.4); Lymphocytes Absolute Auto 0.9 X10*3/uL (1.2-4.9); Lymphocytes Percent Auto 8.6 % (20-40); Mean Corpuscular Hemoglobin 29.9 pg (27.0-33.0); Mean Corpuscular Volume 87.9 fL (80.0-98.0); Mean Platelet Volume 10.4 fL (9.4-12.3); Monocytes Absolute Auto 0.3 X10*3/uL (0.1-1.2); Monocytes Percent Auto 2.9 % (2-11); Neutrophils Absolute Auto 9.3 x10*3/uL (2.0-8.3); Neutrophils Percent Auto 87.9 % (45-73); Platelet Count 271 X10*3/uL (160-400); Red Blood Count 5.05 X10*6/uL (4.20-5.50); Red Cell Distribution Width 13.5 % (11.0-16.0); White Blood Count 10.5 X10*3/uL (4.8-10.8)
[2024-04-24 20:52] LABS: Appearance Urine Clear; Color Urine Yellow; Glucose Urine UA Negative (Negative); Leukocyte Esterase Urine Moderate (2+) (Negative); Nitrite Urine Positive (Negative); PH 5.5 (5.0-9.0); UMIC TRIGGER UACC YES; Urine Blood Negative (Negative); Urine Ketones Negative (Negative); Urine Protein Negative (Neg-Trace)
[2024-04-24 20:59] LABS: Bacteria Urine 4+ (None Seen); RBC Urine 0-2 /HPF (0-2); UACC Culture Trigger YES
[2024-04-24 21:04] LABS: Alanine Aminotransferase 18 U/L (0-31); Albumin Level 4.1 g/dL (3.5-5.0); Alkaline Phosphatase 106 U/L (39-117); Anion Gap 13 (12-20); Aspartate Amino Transferase 20 U/L (5-31); Bilirubin Total 0.5 mg/dL (0.0-1.0); Blood Urea Nitrogen 26 mg/dL (9-16); Calcium 9.8 mg/dL (8.4-10.2); Carbon Dioxide 24 mmol/L (22-29); Chloride 107 mmol/L (96-108); Creatinine Clr Calc Pharmacy 44.5; Estimated Glomerular Filt Rate > 60; Glucose Random 184 mg/dL (60-115); Potassium 4.1 mmol/L (3.3-5.1); Sodium 140 mmol/L (135-145); Total Protein 7.5 g/dL (6.5-8.0)
[2024-04-24 21:25] LABS: COVID-19 Test Negative (Negative); IDNOW Serial# 152EDE1D
[2024-04-24 22:02] VITALS: BP 197/79; PULSE 78; RESP 18; O2SAT 94
[2024-04-24 22:27] LABS: Prothrombin Time 11.7 SEC (10.9-12.4)
[2024-04-24 22:30] LABS: Partial Thromboplastin Time 32.4 SEC (26.0-36.8)
[2024-04-24] MEDS: cefTRIAXone sodium 1 GM in 0.9 % Sodium Chloride 50 ML IV (22:41)
[2024-04-24] MEDS: ondansetron HCL 4 MG/2 ML VIAL IVPUSH (22:41)
[2024-04-24] MEDS: Morphine Sulfate 4 MG/ML CARTRIDGE IVPUSH (22:41)
--- NOTE | 2024-04-24 22:41 | PC.NURSE ---
abx administered per mar per MD galo and MD sterling no need for blood cultures/lactic as pt does not meet sepsis criteria no fever, white count, abnormal vitals, etc.
[2024-04-24 23:36] VITALS: BP 198/72; PULSE 80; RESP 14; TEMP 38; O2SAT 96
[2024-04-25] VITALS (17 sets, daily range): BP systolic 123–208; BP diastolic 42–75; PULSE 73–90; RESP 12–18; TEMP 36.2–38.2; O2SAT 92–98
--- NOTE | 2024-04-25 00:02 | PM.IMHP ---
History of Present Illness Date of Service: 04/25/24 Chief Complaint: Fall This is a 89-year-old female, resident of [facility] with pertinent history of hypertension, coronary artery disease, osteoporosis, mood disorder who was brought to the emergency department for evaluation after a fall. Patient normally uses a walker to ambulate. She was walking in the hallway without a walker and fell on her left side. Did not hit her head. The fall was unwitnessed and patient denies dizziness or lightheadedness prior to the fall. No loss of consciousness prior to the fall. No jerking movement of extremities. No chest pain or palpitations prior to the fall. Was unable to bear weight on her left lower extremity after the fall. No fever, chills, shortness of breath, abdominal pain, changes in urinary or bowel habits. In the emergency department, imaging with left femoral neck fracture Review of Systems Cardiovascular: Cardiovascular: Reports no additional cardiovascular complaints Respiratory: Respiratory: Reports no additional respiratory complaints Gastrointestinal: Gastrointestinal: Reports no additional gastrointestinal complaints Genitourinary: Genitourinary: Reports no additional female genitourinary complaints Musculoskeletal: Musculoskeletal: Reports arthralgias and Reports joint swelling [facility] Medical History Fracture of femoral neck, right Urinary tract infection Closed hip fracture requiring operative repair Fracture of right distal radius Diverticular disease Cholelithiasis Glaucoma Vestibular neuronitis of both ears Hypertension Hypercholesterolemia Coronary artery disease Osteoporosis Family History Father No problems noted. Mother CVD (cardiovascular disease) Hypertension Surgical History Hx of nasal septoplasty History of surgery History of eye surgery History of appendectomy History of tonsillectomy History of total abdominal hysterectomy and bilateral salpingo-oophorectomy History of cataract surgery Social History Household Members: None Housing: House Alcohol intake: never Patient Tobacco Use Status: Never used Tobacco Smoked in Last 30 Days: No e-Cigarette/Vaping Use: Never Used Second Hand Smoke Exposure: No Use of substances other than those prescribed or required for medical reasons: No Advance Directives: Yes Advance Directives on File: Yes Advance Directives Date on File: 10/08/21 Do you have a plan to hurt others: No Plan service: No Current occupational status: retired Meds Allergies Allergy/AdvReac Type Severity Reaction Status Date / Time atorvastatin [Lipitor] Allergy Unknown Unknown Verified 04/24/24 20:12 ciprofloxacin [Cipro] Allergy Unknown nausea Verified 04/24/24 20:12 ezetimibe [Zetia] Allergy Unknown Unknown Verified 04/24/24 20:12 pravastatin [Pravachol] Allergy Unknown Unknown Verified 04/24/24 20:12 simvastatin Allergy Unknown Unknown Verified 04/24/24 20:12 sulfamethoxazole Allergy Unknown Unknown Verified 04/24/24 20:12 [From Marra] trimethoprim [From Marra] Allergy Unknown Unknown Verified 04/24/24 20:12 Home Medications ?Medication ?Instructions ?Recorded ?Confirmed ?Last Taken ?Type ascorbic acid (vitamin C) 1,000 mg 1 g PO DAILY 11/11/20 11/11/21 Unknown History tablet ferrous sulfate 325 mg (65 mg 325 mg PO DAILY 11/11/20 11/11/21 Unknown History iron) tablet (Feosol) czcfjbnb-evacmzu-hcpn-lutein tablet 1 tab PO DAILY 11/11/20 11/11/21 Unknown History omega-3 fatty acids 1,000 mg 1,000 mg PO DAILY 11/11/20 11/11/21 Unknown History capsule (Fish Oil Concentrate) alendronate 70 mg tablet 70 mg PO WHITE@0600 11/11/21 11/11/21 Unknown History latanoprostene bunod 0.024 % eye 1 drp ophthalmic (eye) BEDTIME 11/11/21 11/11/21 Unknown History drops (Vyzulta) timolol maleate (PF) 0.5 % eye 1 drp ophthalmic (eye) DAILY 11/11/21 11/11/21 Unknown History drops in a dropperette (Timoptic Ocudose (PF)) Physical Exam Vital Signs and Narrative: Vital Signs: Last Vital Signs Temp 100.4 F 04/24/24 23:36 Pulse 80 04/24/24 23:36 Resp 14 04/24/24 23:36 BP 198/72 H 04/24/24 23:36 Pulse Ox 96 04/24/24 23:36 O2 Del Method Room Air 04/24/24 23:36 O2 Flow Rate 2 04/24/24 20:16 BMI result Body Mass Index 30.1 Elderly female lying in bed in no distress Neck supple, no JVD Regular rate and rhythm, S1-S2 heard Regular breath sounds bilaterally, no wheezing or crackles appreciated Abdomen soft nontender, no guarding, no rigidity Patient is awake, alert and oriented to self, place, time and person ; no focal motor deficit Psych: Normal mood Limited range of motion of left lower extremity due to pain Results Labs 04/24/24 20:42 04/24/24 20:42 Labs: Laboratory Results - last 24 hr 04/24/24 04/24/24 04/24/24 20:35 20:42 20:43 MCV 87.9 MCH 29.9 MCHC 34.0 RDW 13.5 Plt Count 271 D MPV 10.4 Immature Gran % (Auto) 0.4 Neut % (Auto) 87.9 H Lymph % (Auto) 8.6 L [place] % (Auto) 2.9 Eos % (Auto) 0.1 Baso % (Auto) 0.1 Lymph # (Auto) 0.9 L [place] # (Auto) 0.3 Eos # (Auto) 0.0 Baso # (Auto) 0.0 Abs Immat Gran (auto) 0.04 H Absolute Neuts (auto) 9.3 H Absolute Nucleated RBC 0.000 Nucleated RBC % (auto) 0.0 PT INR APTT Anion Gap 13 Estim Creat Clear Calc 44.5 Estimated GFR > 60 Random Glucose 184 H Calcium 9.8 D Total Bilirubin 0.5 AST 20 ALT 18 Alkaline Phosphatase 106 Total Protein 7.5 Albumin 4.1 Urine Color Yellow Urine Appearance Clear Urine pH 5.5 Ur Specific [place] 1.020 Urine Protein Negative Urine Glucose (UA) Negative Urine Ketones Negative Urine Blood Negative Urine Nitrite Positive H Ur Leukocyte Esterase Moderate (2+) H Urine RBC 0-2 Urine WBC 11-20 Ur Squamous Epith Cells 3-5 Urine Bacteria 4+ Hyaline Casts 11-20 COVID-19 (EDUARD) Negative COVID-19 Clin Com See Note Blood Type Antibody Screen 04/24/24 04/24/24 22:15 22:56 MCV MCH MCHC RDW Plt Count MPV Immature Gran % (Auto) Neut % (Auto) Lymph % (Auto) [place] % (Auto) Eos % (Auto) Baso % (Auto) Lymph # (Auto) [place] # (Auto) Eos # (Auto) Baso # (Auto) Abs Immat Gran (auto) Absolute Neuts (auto) Absolute Nucleated RBC Nucleated RBC % (auto) PT 11.7 INR 1.0 APTT 32.4 Anion Gap Estim Creat Clear Calc Estimated GFR Random Glucose Calcium Total Bilirubin AST ALT Alkaline Phosphatase Total Protein Albumin Urine Color Urine Appearance Urine pH Ur Specific [place] Urine Protein Urine Glucose (UA) Urine Ketones Urine Blood Urine Nitrite Ur Leukocyte Esterase Urine RBC Urine WBC Ur Squamous Epith Cells Urine Bacteria Hyaline Casts COVID-19 (EDUARD) COVID-19 Clin Com Blood Type O Positive Antibody Screen NEGATIVE Imaging Radiologist's Impressions: Impressions Hip/Pelvis X-Ray 04/24/24 20:02 IMPRESSION: Impacted and displaced left femoral neck fracture. Electronically signed by: Marlene Samano MD 04/24/2024 11:13 PM EDT RP Chest X-Ray 04/24/24 20:08 IMPRESSION: 1. No acute cardiopulmonary findings. 2. No acutely displaced rib fractures. Electronically signed by: Marlene Samano MD 04/24/2024 11:12 PM EDT RP Cervical Spine CT 04/24/24 21:07 IMPRESSION: 1. No acute intracranial abnormality. 2. No cervical spine fracture or traumatic malalignment. Electronically signed by: Fahad Joshi MD 04/24/2024 10:22 PM EDT RP Head CT 04/24/24 21:15 IMPRESSION: 1. No acute intracranial abnormality. 2. No cervical spine fracture or traumatic malalignment. Electronically signed by: Fahad Joshi MD 04/24/2024 10:22 PM EDT RP Assessment and Plan (1) Fracture of femoral neck, left: Status: Acute Plan This is a 89-year-old female, resident of [facility] with pertinent history of hypertension, coronary artery disease, osteoporosis, mood disorder who was brought to the emergency department for evaluation after a fall. #. Left femur fracture due to unwitnessed fall: Will admit patient with IV opioids p.r.n. for analgesia. Consulted Orthopedic surgery, appreciate assistance #. Preoperative risk: RCRI score 0 #. Hypertension/CAD: Continue metoprolol. Hold lisinopril prior to surgery to prevent postop hypotension #. Osteoporosis: On alendronate Med rec pending DVT prophylaxis: SCDs DNR/DNI Admit as inpatient and will require two night minimum hospital stay for management of left femur fracture (as above), which is not possible in a lesser acute setting. Specialist consult pending Quality Stroke Does the patient have a stroke diagnosis?: No VTE Prior VTE?: No VTE Risk Level:: Medical - moderate - high VTE Device Contraindication: N/A - Device Ordered VTE Drug Contraindication: Treatment Not Indicated
[2024-04-25] MEDS: hydrALAZINE HCl 20 MG/ML VIAL 10 MG IVPUSH (00:18)
--- NOTE | 2024-04-25 00:30 | PC.NURSE ---
16fr temp sensing farrell catheter placed as ordered for hip fracture.
--- NOTE | 2024-04-25 02:18 | PC.NURSE ---
MD Michelle made aware of developing fever - ordering blood cultures and lactic d/t urine infection
[2024-04-25] MEDS: 0.9 % Sodium Chloride 500 ML IV (02:30)
[2024-04-25 03:40] LABS: Hemoglobin 14.5 g/dl (12.0-16.0); Neutrophils Percent Auto 86.7 % (45-73); PLT CLUMP 1; SCAN SMEAR FLAG 1
[2024-04-25 03:41] LABS: Basophils Percent Auto 0.3 % (0-2); Eosinophils Percent Auto 0.2 % (0-4); Hematocrit 42.9 % (37.0-47.0); Imm Gran Abs Auto 0.06 X10*3/uL (0.00-0.03); Imm Gran Pct Auto 0.5 % (0.0-0.4); Lactic Acid 1.5 mmol/L (0.5-2.0); Lymphocytes Absolute Auto 1.1 X10*3/uL (1.2-4.9); Lymphocytes Percent Auto 9.4 % (20-40); Mean Corpuscular HGB Conc 33.8 g/dl (31.0-35.0); Mean Corpuscular Hemoglobin 30.3 pg (27.0-33.0); Mean Corpuscular Volume 89.6 fL (80.0-98.0); Mean Platelet Volume 10.9 fL (9.4-12.3); Monocytes Absolute Auto 0.3 X10*3/uL (0.1-1.2); Monocytes Percent Auto 2.9 % (2-11); Neutrophils Absolute Auto 10.2 x10*3/uL (2.0-8.3); Red Blood Count 4.79 X10*6/uL (4.20-5.50); Red Cell Distribution Width 13.5 % (11.0-16.0)
[2024-04-25 03:43] LABS: MANUAL DIFF FLAG NO; White Blood Count 11.8 X10*3/uL (4.8-10.8)
[2024-04-25 03:45] LABS: Anion Gap 15 (12-20); Blood Urea Nitrogen 24 mg/dL (9-16); Calcium 9.6 mg/dL (8.4-10.2); Carbon Dioxide 21 mmol/L (22-29); Chloride 108 mmol/L (96-108); Creatinine Clr Calc Pharmacy 43.9; Estimated Glomerular Filt Rate > 60; Glucose Random 190 mg/dL (60-115); Potassium 4.4 mmol/L (3.3-5.1); Sodium 140 mmol/L (135-145)
[2024-04-25 04:04] LABS: Platelet Count 255 X10*3/uL (160-400)
[2024-04-25] MEDS: Acetaminophen 325 MG TABLET 650 MG PO ×2 (04:05→21:29)
--- NOTE | 2024-04-25 07:36 | P.HPOP_ITS ---
History of Present Illness History of Present Illness Date of Service: 04/25/24 Chief complaint: fall Narrative: Galina Stroud is a 89 year old female from [facility] with a PMH significant for Dementia, Mood Disorder, HTN, CAD and osteoporosis presented to the ED last night after sustaining a mechanical fall. Patient is unable to recall the events, therefore the history is taken from the ED and hospitalist notes. She typically walks with a walker at baseline. X-rays obtained in the ED revealed a left femoral neck fracture. The patient was admitted to the hospitalist service with orthopedic consult. Review of Systems 2 Review of Systems: Yes Unobtainable due to mental status PMFSH Past Medical History Medical History Fracture of femoral neck, right Urinary tract infection Closed hip fracture requiring operative repair Fracture of right distal radius Diverticular disease Cholelithiasis Glaucoma Vestibular neuronitis of both ears Hypertension Hypercholesterolemia Coronary artery disease Osteoporosis Family History Family History Father No problems noted. Mother CVD (cardiovascular disease) Hypertension Surgical History Surgical History Hx of nasal septoplasty History of surgery History of eye surgery History of appendectomy History of tonsillectomy History of total abdominal hysterectomy and bilateral salpingo-oophorectomy History of cataract surgery Social History Social History Household Members: None Housing: House Alcohol intake: never Patient Tobacco Use Status: Never used Tobacco Smoked in Last 30 Days: No e-Cigarette/Vaping Use: Never Used Second Hand Smoke Exposure: No Use of substances other than those prescribed or required for medical reasons: No Advance Directives: Yes Advance Directives on File: Yes Advance Directives Date on File: 10/08/21 Do you have a plan to hurt others: No Plan Nutrition Risks: No Nutritional Risk service: No Current occupational status: retired Meds Allergies Allergy/AdvReac Type Severity Reaction Status Date / Time atorvastatin [Lipitor] Allergy Unknown Unknown Verified 04/24/24 20:12 ciprofloxacin [Cipro] Allergy Unknown nausea Verified 04/24/24 20:12 ezetimibe [Zetia] Allergy Unknown Unknown Verified 04/24/24 20:12 pravastatin [Pravachol] Allergy Unknown Unknown Verified 04/24/24 20:12 simvastatin Allergy Unknown Unknown Verified 04/24/24 20:12 sulfamethoxazole Allergy Unknown Unknown Verified 04/24/24 20:12 [From ] trimethoprim [From ] Allergy Unknown Unknown Verified 04/24/24 20:12 Active Medications: Current Medications Acetaminophen (Acetaminophen 325 Mg Tablet) 650 mg PO Q6H PRN PRN Reason: Pain, Mild (Pain Scale 1-3), fever or headache Last Admin: 04/25/24 04:05 Dose: 650 mg Calcium Carbonate (Calcium Carbonate 750 Mg Tab.Chew) 750 mg PO Q4H PRN PRN Reason: Heartburn Ceftriaxone Sodium 1 gm/ (Sodium Chloride) 50 mls @ 100 mls/hr IV Q24H TRISH Magnesium Hydroxide (Milk Of Magnesia 30 Ml Oral.Susp) 30 ml PO DAILY PRN PRN Reason: Constipation Melatonin (Melatonin 3 Mg Tablet) 6 mg PO BEDTIME PRN PRN Reason: Insomnia Morphine Sulfate (Morphine Sulfate 4 Mg/Ml Cartridge) 4 mg IVPUSH Q4H PRN; Protocol PRN Reason: Pain, Severe (Pain Scale 7-10) Ondansetron HCl (Ondansetron Hcl 4 Mg/2 Ml Vial) 4 mg IVPUSH Q8H PRN PRN Reason: Nausea and Vomiting Sodium Chloride (0.9 % Sodium Chloride Flush 3 Ml Syringe) 3 ml IVFLUSH QSHIFT [facility] Home Medications ?Medication ?Instructions ?Recorded ?Confirmed ?Last Taken ?Type latanoprostene bunod 0.024 % eye 1 drp ophthalmic (eye) BEDTIME 11/11/21 04/25/24 Unknown History drops (Vyzulta) bisacodyl 10 mg rectal suppository 10 mg MI DAILY PRN Bowel Management 04/25/24 04/25/24 Unknown History furosemide 40 mg tablet 40 mg PO DAILY 04/25/24 04/25/24 Unknown History melatonin 3 mg tablet 3 mg PO BEDTIME 04/25/24 04/25/24 Unknown History metoprolol succinate 50 mg 50 mg PO DAILY 04/25/24 04/25/24 Unknown History tablet,extended release 24 hr mirtazapine 7.5 mg tablet 7.5 mg PO BEDTIME 04/25/24 04/25/24 Unknown History ondansetron HCl 4 mg tablet 4 mg PO Q6H PRN Nausea And Vomiting 04/25/24 04/25/24 Unknown History potassium chloride 20 mEq 20 meq PO BID 04/25/24 04/25/24 Unknown History tablet,extended release(part/cryst) sennosides 8.6 mg tablet (senna) See Rx Instructions .Route 04/25/24 04/25/24 Unknown History .COMPLEX PRN Bowel Management timolol maleate 0.25 % eye drops See Rx Instructions .Route .COMPLEX 04/25/24 04/25/24 Unknown History Physical Exam 2 Vital Signs: Vital Signs: Last Vital Signs Temp 100.2 F 04/25/24 06:34 Pulse 83 04/25/24 05:42 Resp 16 04/25/24 05:42 BP 123/49 L 04/25/24 05:42 Pulse Ox 94 04/25/24 05:42 O2 Del Method Nasal Cannula 04/25/24 05:42 O2 Flow Rate 2 04/25/24 05:42 BMI result Body Mass Index 30.1 Const: General: cooperative, healthy appearing and no acute distress Resp: Effort & Inspection: normal respiratory effort and able to speak in complete sentences Cardio: Rate: regular rate Peripheral pulses: Peripheral pulses 2+ throughout GI: Palpation (GI): Soft to palpation Skin: Lesions: no lesions Rashes: no rashes Extrem: Other: LLE shortened. Able to dorsi/plantar flex. NVI. Results Labs 04/25/24 03:23 04/25/24 03:23 Labs: Abnormal lab results 04/24/24 04/24/24 04/25/24 Range/Units 20:42 20:43 03:23 WBC 11.8 H (4.8-10.8) X10*3/uL Immature Gran % (Auto) 0.5 H (0.0-0.4) % Neut % (Auto) 87.9 H 86.7 H (45-73) % Lymph % (Auto) 8.6 L 9.4 L (20-40) % Lymph # (Auto) 0.9 L 1.1 L (1.2-4.9) X10*3/uL Abs Immat Gran (auto) 0.04 H 0.06 H (0.00-0.03) X10*3/uL Absolute Neuts (auto) 9.3 H 10.2 H (2.0-8.3) x10*3/uL Carbon Dioxide 21 L (22-29) mmol/L BUN 26 H 24 H (9-16) mg/dL Random Glucose 184 H 190 H (60-115) mg/dL Urine Nitrite Positive H (Negative) Ur Leukocyte Esterase Moderate (2+) H (Negative) H & H 04/24/24 04/25/24 Range/Units 20:42 03:23 Hgb 15.1 D 14.5 (12.0-16.0) g/dl Hct 44.4 D 42.9 (37.0-47.0) % Coagulation 04/24/24 Range/Units 22:15 INR 1.0 (0.9-1.1) All other labs normal. Assessment and Plan (1) Fracture of femoral neck, left: Status: Acute The case was discussed with Dr. Alvarado, because the patient is ambulatory at baseline surgical intervention for left hip hemiarthroplasty Will contact the HCP listed in the chart Selin [phone] Remain NPO for possible OR later today Quality Stroke Does the patient have a stroke diagnosis?: No VTE Prior VTE?: No VTE Risk Level:: Medical - moderate - high VTE Device Contraindication: N/A - Device Ordered VTE Drug Contraindication: Treatment Not Indicated Procedures Date of Service Date of Service: 04/25/24
--- NOTE | 2024-04-25 08:05 | PHA.MEDREC ---
Addendum entered by Danis Terrell RPh 04/25/24 09:23: Reviewed by [facility]. Original Note: Pharmacy Consult ? Medication Reconciliation Pharmacy rewiewed med rec done by nursing. Medications matched, I added Artificial Tears and Fleet Enema that was left off the med rec.
[2024-04-25] MEDS: 0.9 % Sodium Chloride Flush 3 ML SYRINGE IVFLUSH ×2 (08:19→23:30)
[2024-04-25] MEDS: Metoprolol Succinate ER 50 MG TAB.ER.24H PO (10:05)
--- NOTE | 2024-04-25 10:41 | MHC.CM.PN ---
pt from [facility] where she will return when dcd
--- NOTE | 2024-04-25 11:27 | PM.EVENT ---
Event Note Date of Service: 04/25/24 Event Note: Day hospitalist update S: pain controlled no chest pain or dyspnea febrile overnight to 100.8; found to have UCx and started on ceftriaxone O: Temp Pulse Resp BP Pulse Ox O2 Del Method O2 Flow Rate 99.1 F 82 12 145/55 H 94 Room Air 2 04/25/24 10:06 04/25/24 10:06 04/25/24 10:06 04/25/24 10:06 04/25/24 10:06 04/25/24 10:06 04/25/24 05:42 Gen: in no acute distress HEENT: sclera anicteric, moist mucus membranes Neck: supple Lungs: clear to auscultation bilaterally Heart: regular rate and rhythm, no murmurs Abd: soft, non-tender, non-distended Ext: no edema Skin: warm/well-perfused Neuro: alert and oriented x3, no focal findings Psych: appropriate affect Labs: Hb 14.5, SCr 0.87 A/P: d1 89yo F LTC resident of [facility] with HTN, CAD [no hx PCI], osteoporosis, prior R hip hemiarthroplasty for femoral neck fracture in 2021 sustained L femur fracture after mechanical fall L femur fracture - NPO for operative intervention, Ortho consulted UTI - ceftriaxone 04/25-, BCx/UCx pending HTN CAD - intermediate cardiovascular risk; no further preoperative testing indicated - metoprolol succinate; lisinopril on hold VTE ppx - SCDs; LMWH after operative fixation dispo - STR In my clinical judgment, the patient requires continued inpatient hospitalization for the following reasons: operative intervention Time Spent With Patient Time: Total time managing care of this patient today ____ minutes.
--- NOTE | 2024-04-25 14:46 | MHC.SHP ---
Pre-Procedural Eval Section A - 24 Hr Update-Section A only Date of Service: 04/25/24 The patient is an INPATIENT: Yes Changes since office visit: No Cold of Flu in the past 2 weeks, No New Medical Problems, No Changes in Medication and No Patient answered all questions The patient has been examined within 24 hours of the surgical procedure. The History & Physical has been completed within 30 days and I have reviewed it.: Yes Section B - Complete if H&P > 30 days Chief Complaint: fall Allergies: Allergies Allergy/AdvReac Type Severity Reaction Status Date / Time atorvastatin [Lipitor] Allergy Unknown Unknown Verified 04/24/24 20:12 ciprofloxacin [Cipro] Allergy Unknown nausea Verified 04/24/24 20:12 ezetimibe [Zetia] Allergy Unknown Unknown Verified 04/24/24 20:12 pravastatin [Pravachol] Allergy Unknown Unknown Verified 04/24/24 20:12 simvastatin Allergy Unknown Unknown Verified 04/24/24 20:12 sulfamethoxazole Allergy Unknown Unknown Verified 04/24/24 20:12 [From Septra] trimethoprim [From Septra] Allergy Unknown Unknown Verified 04/24/24 20:12 Plan I have reviewed the history and physical and performed a pertinent physical examination on my patient. No changes have occurred unless specified. Time Spent With Patient Time: Total time managing care of this patient today ____ minutes.
--- NOTE | 2024-04-25 15:09 | P.CONAN_ITS ---
HPI - Anesthesia Eval Consult details Narrative: left hip hemiarthroplasty PMFSH Active Problems Active Problems: All Active Problems Fracture of femoral neck, left (Acute) Fracture of femoral neck, right (Acute) Cognitive impairment (Acute) Osteoporosis (Acute) Preop exam for internal medicine (Acute) Hypertension (Acute) Hypercholesterolemia (Acute) Coronary artery disease (Acute) Past Medical History Medical History Fracture of femoral neck, right Urinary tract infection Closed hip fracture requiring operative repair Fracture of right distal radius Diverticular disease Cholelithiasis Glaucoma Vestibular neuronitis of both ears Hypertension Hypercholesterolemia Coronary artery disease Osteoporosis Family History Family History Father No problems noted. Mother CVD (cardiovascular disease) Hypertension Family history of problems with anesthesia: No Surgical History Surgical History Hx of nasal septoplasty History of surgery History of eye surgery History of appendectomy History of tonsillectomy History of total abdominal hysterectomy and bilateral salpingo-oophorectomy History of cataract surgery History of Problems with Anesthesia: No Social History Social History Household Members: None Housing: House Alcohol intake: never Patient Tobacco Use Status: Never used Tobacco e-Cigarette/Vaping Use: Never Used Second Hand Smoke Exposure: No Advance Directives Date on File: 10/08/21 service: No Current occupational status: retired Meds Allergies Allergy/AdvReac Type Severity Reaction Status Date / Time atorvastatin [Lipitor] Allergy Unknown Unknown Verified 04/24/24 20:12 ciprofloxacin [Cipro] Allergy Unknown nausea Verified 04/24/24 20:12 ezetimibe [Zetia] Allergy Unknown Unknown Verified 04/24/24 20:12 pravastatin [Pravachol] Allergy Unknown Unknown Verified 04/24/24 20:12 simvastatin Allergy Unknown Unknown Verified 04/24/24 20:12 sulfamethoxazole Allergy Unknown Unknown Verified 04/24/24 20:12 [From Septra] trimethoprim [From Septra] Allergy Unknown Unknown Verified 04/24/24 20:12 Active Medications: Current Medications Acetaminophen (Acetaminophen 325 Mg Tablet) 650 mg PO Q6H PRN PRN Reason: Pain, Mild (Pain Scale 1-3), fever or headache Last Admin: 04/25/24 04:05 Dose: 650 mg Bisacodyl (Bisacodyl 10 Mg Supp.Rect) 10 mg NC DAILY PRN PRN Reason: Bowel Management Calcium Carbonate (Calcium Carbonate 750 Mg Tab.Chew) 750 mg PO Q4H PRN PRN Reason: Heartburn Ceftriaxone Sodium 1 gm/ (Sodium Chloride) 50 mls @ 100 mls/hr IV Q24H [facility] Magnesium Hydroxide (Milk Of Magnesia 30 Ml Oral.Susp) 30 ml PO DAILY PRN PRN Reason: Constipation Melatonin (Melatonin 3 Mg Tablet) 6 mg PO BEDTIME PRN PRN Reason: Insomnia Metoprolol Succinate (Metoprolol Succinate Er 50 Mg Tab.Er.24h) 50 mg PO DAILY [facility]; Protocol Last Admin: 04/25/24 10:05 Dose: 50 mg Mirtazapine (Mirtazapine 7.5 Mg Tablet) 7.5 mg PO BEDTIME TRISH Morphine Sulfate (Morphine Sulfate 4 Mg/Ml Cartridge) 4 mg IVPUSH Q4H PRN; Protocol PRN Reason: Pain, Severe (Pain Scale 7-10) Non-Formulary Medication (Latanoprostene Bunod [Vyzulta]) 1 drop EYE-BOTH BEDTIME [facility] Ondansetron HCl (Ondansetron Hcl 4 Mg/2 Ml Vial) 4 mg IVPUSH Q8H PRN PRN Reason: Nausea and Vomiting Senna (Sennosides 8.6 Mg Tablet) 17.2 mg PO DAILY PRN PRN Reason: Bowel Management Sodium Chloride (0.9 % Sodium Chloride Flush 3 Ml Syringe) 3 ml IVFLUSH QSHIFT [facility] Last Admin: 04/25/24 08:19 Dose: 3 ml Timolol Maleate (Timolol Maleate 0.5 % Oph Peace 5 Ml Drbtl) 1 drop EYE-BOTH DAILY [facility] Home Medications ?Medication ?Instructions ?Recorded ?Confirmed ?Last Taken ?Type latanoprostene bunod 0.024 % eye 1 drp ophthalmic (eye) BEDTIME 11/11/21 04/25/24 Unknown History drops (Vyzulta) acetaminophen 325 mg tablet 650 mg PO Q6H PRN Fever Or Pain 04/25/24 04/25/24 Unknown History bisacodyl 10 mg rectal suppository 10 mg NC DAILY PRN Bowel Management 04/25/24 04/25/24 Unknown History dextran 70-hypromellose eye drops 1 drp ophthalmic (eye) QID 04/25/24 04/25/24 Unknown History in a dropperette (Artificial Tears (PF) drops in a dropperette) furosemide 40 mg tablet 40 mg PO DAILY 04/25/24 04/25/24 Unknown History melatonin 3 mg tablet 3 mg PO BEDTIME 04/25/24 04/25/24 Unknown History metoprolol succinate 50 mg 50 mg PO DAILY 04/25/24 04/25/24 Unknown History tablet,extended release 24 hr mirtazapine 7.5 mg tablet 7.5 mg PO BEDTIME 04/25/24 04/25/24 Unknown History ondansetron HCl 4 mg tablet 4 mg PO Q6H PRN Nausea And Vomiting 04/25/24 04/25/24 Unknown History potassium chloride 20 mEq 20 meq PO BID 04/25/24 04/25/24 Unknown History tablet,extended release(part/cryst) sennosides 8.6 mg tablet (senna) 17.2 mg PO DAILY PRN Bowel 04/25/24 04/25/24 Unknown History Management sodium phosphates 19 gram-7 118 ml NC DAILY PRN Bowel Movement 04/25/24 04/25/24 Unknown History gram/118 mL enema (Enema) timolol maleate 0.25 % eye drops 1 drp ophthalmic (eye) DAILY 04/25/24 04/25/24 Unknown History Exam Height,Weight and Vital Signs: Height 5 ft 3 in Weight 77.111 kg Last Vital Signs Temp 100.1 F 04/25/24 15:06 Pulse 79 04/25/24 15:06 Resp 16 04/25/24 15:06 BP 208/67 H 04/25/24 15:06 Pulse Ox 94 04/25/24 15:06 O2 Del Method Nasal Cannula 04/25/24 15:06 O2 Flow Rate 2 04/25/24 15:06 Pertinent Lab Results Pertinent Lab Results: Laboratory Tests 04/24/24 04/24/24 04/24/24 20:35 20:42 20:43 WBC 10.5 RBC 5.05 D Hgb 15.1 D Hct 44.4 D MCV 87.9 MCH 29.9 MCHC 34.0 RDW 13.5 Plt Count 271 D MPV 10.4 Immature Gran % (Auto) 0.4 Neut % (Auto) 87.9 H Lymph % (Auto) 8.6 L [place] % (Auto) 2.9 Eos % (Auto) 0.1 Baso % (Auto) 0.1 Lymph # (Auto) 0.9 L [place] # (Auto) 0.3 Eos # (Auto) 0.0 Baso # (Auto) 0.0 Abs Immat Gran (auto) 0.04 H Absolute Neuts (auto) 9.3 H Absolute Nucleated RBC 0.000 Nucleated RBC % (auto) 0.0 PT INR APTT Sodium 140 Potassium 4.1 Chloride 107 Carbon Dioxide 24 Anion Gap 13 BUN 26 H Creatinine 0.86 Estim Creat Clear Calc 44.5 Estimated GFR > 60 Random Glucose 184 H Lactic Acid Calcium 9.8 D Total Bilirubin 0.5 AST 20 ALT 18 Alkaline Phosphatase 106 Total Protein 7.5 Albumin 4.1 Urine Color Yellow Urine Appearance Clear Urine pH 5.5 Ur Specific [place] 1.020 Urine Protein Negative Urine Glucose (UA) Negative Urine Ketones Negative Urine Blood Negative Urine Nitrite Positive H Ur Leukocyte Esterase Moderate (2+) H Urine RBC 0-2 Urine WBC 11-20 Ur Squamous Epith Cells 3-5 Urine Bacteria 4+ Hyaline Casts 11-20 COVID-19 (EDUARD) Negative COVID-19 Clin Com See Note Blood Type Antibody Screen 04/24/24 04/24/24 04/25/24 22:15 22:56 03:23 WBC 11.8 H RBC 4.79 Hgb 14.5 Hct 42.9 MCV 89.6 MCH 30.3 MCHC 33.8 RDW 13.5 Plt Count 255 MPV 10.9 Immature Gran % (Auto) 0.5 H Neut % (Auto) 86.7 H Lymph % (Auto) 9.4 L [place] % (Auto) 2.9 Eos % (Auto) 0.2 Baso % (Auto) 0.3 Lymph # (Auto) 1.1 L [place] # (Auto) 0.3 Eos # (Auto) 0.0 Baso # (Auto) 0.0 Abs Immat Gran (auto) 0.06 H Absolute Neuts (auto) 10.2 H Absolute Nucleated RBC 0.000 Nucleated RBC % (auto) 0.0 PT 11.7 INR 1.0 APTT 32.4 Sodium 140 Potassium 4.4 Chloride 108 Carbon Dioxide 21 L Anion Gap 15 BUN 24 H Creatinine 0.87 Estim Creat Clear Calc 43.9 Estimated GFR > 60 Random Glucose 190 H Lactic Acid 1.5 Calcium 9.6 Total Bilirubin AST ALT Alkaline Phosphatase Total Protein Albumin Urine Color Urine Appearance Urine pH Ur Specific [place] Urine Protein Urine Glucose (UA) Urine Ketones Urine Blood Urine Nitrite Ur Leukocyte Esterase Urine RBC Urine WBC Ur Squamous Epith Cells Urine Bacteria Hyaline Casts COVID-19 ([facility]UARD) COVID-19 Clin Com Blood Type O Positive Antibody Screen NEGATIVE Airway Mallampati Class: II TM Dist: <=3cm Neck ROM: Full Heart: ok Lungs: Sat 89% on room air, 93% on 2L NC Assessment and Plan Assessment Anesthesia Assessment: Anesthesia Plan Discussed and Chart Reviewed Final Anesthetic Review Family History of Problems with Anesthesia: No History of Problems with Anesthesia: No NPO: Yes ASA Class: IV Final Preanesthetic Review: No Changes in Pt Med Stat, Meds/Allgs Chart Reviewed, Consent Obtained/Reviewed and DNR Form (If Appl.) Patient Risk: High Procedure Risk: Low Anesthetic Plan Anesthetic Plan: Spinal and Agree w/ Assess. and Plan Disposition: Standard PACU
--- NOTE | 2024-04-25 17:40 | P.BOP_ITS ---
Brief Operative Note Date of Service: 04/25/24 Pre-op diagnosis: left femoral neck fx Post-op diagnosis: same Procedure: Left hip denise Implants: Bailey Accoalde3 127/ +0 bipolar Surgeon: David Alvarado MD Anesthesia: regional and local Was an Disability Counselor used for this Procedure?: No Estimated blood loss (mL): 150 IV fluids (mL): 750 Pathology: other Condition: stable Disposition: PACU
--- NOTE | 2024-04-25 18:57 | PC.NURSE ---
Pt arrived on unit from PACU at 1845, [employer] dsg to left hip, VSS, 2L NC on, SCDs on, Pt complaint of no pain, farrell draining yellow urine. Pt AxO to person, place, and situation, unaware of year or month. Call velasquez at side. High fall risk measures in place.
[2024-04-25] MEDS: Mirtazapine 7.5 MG TABLET PO (21:15)
[2024-04-25] MEDS: cefTRIAXone sodium 1 GM in 0.9 % Sodium Chloride 50 ML IV (21:16)
[2024-04-25] MEDS: Artificial Tears 15 ML DROPS 1 DROP EYE-BOTH (23:12)
[2024-04-26] VITALS (11 sets, daily range): BP systolic 121–180; BP diastolic 62–82; PULSE 80–98; RESP 16–20; TEMP 36.5–37.1; O2SAT 92–98
[2024-04-26] MEDS: Morphine Sulfate 4 MG/ML CARTRIDGE IVPUSH ×2 (02:40→07:59)
--- NOTE | 2024-04-26 02:59 | PC.NURSE ---
0045: Patients BP 176/82 0225: recheck of BP, manual BP 180/68- Dr Michelle notified - no new orders. PRN pain meds given
[2024-04-26 06:24] LABS: Anion Gap 11 (12-20); Blood Urea Nitrogen 19 mg/dL (9-16); Calcium 8.7 mg/dL (8.4-10.2); Carbon Dioxide 23 mmol/L (22-29); Chloride 108 mmol/L (96-108); Creatinine Clr Calc Pharmacy 48.4; Estimated Glomerular Filt Rate > 60; Glucose Random 137 mg/dL (60-115); Potassium 4.2 mmol/L (3.3-5.1); Sodium 138 mmol/L (135-145)
[2024-04-26 06:44] LABS: Hematocrit 37.4 % (37.0-47.0); Hemoglobin 12.4 g/dl (12.0-16.0); Mean Corpuscular HGB Conc 33.2 g/dl (31.0-35.0); Mean Corpuscular Volume 90.3 fL (80.0-98.0); Mean Platelet Volume 10.8 fL (9.4-12.3); Platelet Count 203 X10*3/uL (160-400); Red Blood Count 4.14 X10*6/uL (4.20-5.50); Red Cell Distribution Width 13.8 % (11.0-16.0); White Blood Count 9.4 X10*3/uL (4.8-10.8)
--- NOTE | 2024-04-26 07:27 | PM.PNORT ---
Subjective Subjective Date of Service: 04/26/24 Interval history: 9-year-old female who is postop day 1 status post left hip hemiarthroplasty Patient is resting comfortably in bed No acute events overnight Patient reports that her pain is well-controlled, states that it is ?different than prior to surgery No other acute complaints or concerns at this time Physical Exam Vital Signs: Vital Signs: Last Vital Signs Temp 98.6 F 04/26/24 03:32 Pulse 86 04/26/24 03:32 Resp 16 04/26/24 03:32 BP 163/69 H 04/26/24 03:32 Pulse Ox 95 04/26/24 03:32 O2 Del Method Nasal Cannula 04/26/24 03:32 O2 Flow Rate 2 04/26/24 03:32 BMI result Body Mass Index 30.1 Extrem: Other: Dressing on left hip clean, dry, intact No evidence of surrounding erythema, ecchymosis No evidence of infection Patient is able to flex and extend the digits of the left foot without difficulty Compartments soft, nontender Distal sensation intact Capillary refill brisk Procedures Date of Service Date of Service: 04/26/24 Progress Note: A&P Assessment and plan (1) Fracture of femoral neck, left: Status: Acute Plan 1. Left femoral neck fracture status post left hip hemiarthroplasty DOS 04/25/2024 Patient appears to be recovering well postoperatively Patient is educated about the typical recovery course Continue posterior precautions with left hip Anticoagulation should start today with Lovenox 40 mg Continue pain management Dispo planning-pending PT/OT evaluation with posterior precautions and case management evaluation Continue with all other recommendations per Medicine Time Spent With Patient Time: Total time managing care of this patient today ____ minutes. Quality Stroke Does the patient have a stroke diagnosis?: No VTE Prior VTE?: No VTE Risk Level:: Medical - moderate - high VTE Device Contraindication: N/A - Device Ordered VTE Drug Contraindication: Treatment Not Indicated
[2024-04-26] MEDS: Metoprolol Succinate ER 50 MG TAB.ER.24H PO (07:59)
[2024-04-26] MEDS: 0.9 % Sodium Chloride Flush 3 ML SYRINGE IVFLUSH ×3 (08:00→22:35)
[2024-04-26] MEDS: Artificial Tears 15 ML DROPS 1 DROP EYE-BOTH ×4 (08:13→20:30)
--- NOTE | 2024-04-26 09:10 | HO.POSTANES ---
Post Anesthesia Evaluation Post Anesthesia Evaluation Date of Service: 04/25/24 Vital Signs: Vital Signs Temp Pulse Resp BP Pulse Ox O2 Del Method O2 Flow Rate 04/26/24 07:31 98.1 F 97 16 157/70 H 94 Nasal Cannula 2 04/26/24 03:32 98.6 F 86 16 163/69 H 95 Nasal Cannula 2 04/26/24 02:40 17 04/26/24 02:25 180/68 H 04/26/24 00:45 98.8 F 83 17 176/82 H 93 Room Air Anesthesia: General Mental Status: Awake Pain Control: Satisfactory Nausea/Vomiting: None Hydration: Adequate Anesthesia-Related Issues: No Anes. Related Issues
--- NOTE | 2024-04-26 10:35 | HO.PM.IMPN ---
Subjective Subjective Date of Service: 04/26/24 Interval History: sleepy after given morphine for pain no chest pain or shortness of breath Review of Systems Review of Systems: Yes all other systems are reviewed and are negative Physical Exam Vital Signs: Vital Signs: Last Vital Signs Temp 98.1 F 04/26/24 07:31 Pulse 97 04/26/24 09:16 Resp 16 04/26/24 07:31 BP 157/70 H 04/26/24 09:16 Pulse Ox 94 04/26/24 09:16 O2 Del Method Nasal Cannula 04/26/24 07:31 O2 Flow Rate 2 04/26/24 07:31 BMI result Body Mass Index 30.1 Gen: in no acute distress HEENT: sclera anicteric, moist mucus membranes Neck: supple Lungs: clear to auscultation bilaterally Heart: regular rate and rhythm, no murmurs Abd: soft, non-tender, non-distended Ext: no edema, L hip incision with dry bandage Skin: warm/well-perfused Neuro: alert and oriented x3, no focal findings Psych: appropriate affect Objective Data Active Medications Acetaminophen (Acetaminophen 325 Mg Tablet) 650 mg PO Q6H PRN PRN Reason: Pain, Mild (Pain Scale 1-3), fever or headache Last Admin: 04/25/24 21:29 Dose: 650 mg Documented By: NASIMA Artificial Tears (Artificial Tears 15 Ml Drops) 1 drop EYE-BOTH QID [facility] Last Admin: 04/26/24 08:13 Dose: 1 drop Documented By: LEXX Bisacodyl (Bisacodyl 10 Mg Supp.Rect) 10 mg IA DAILY PRN PRN Reason: Bowel Management Calcium Carbonate (Calcium Carbonate 750 Mg Tab.Chew) 750 mg PO Q4H PRN PRN Reason: Heartburn Enoxaparin Sodium (Enoxaparin Sodium 40 Mg/0.4 Ml Syringe) 40 mg SUBCUT Q24H [facility] Ceftriaxone Sodium 1 gm/ (Sodium Chloride) 50 mls @ 100 mls/hr IV Q24H [facility] Last Infusion: 04/25/24 21:46 Dose: Infused Documented By: NASIMA Cefazolin Sodium/Dextrose (Ancef) 2 gm in 50 mls @ 100 mls/hr IV POSTOP [facility] Magnesium Hydroxide (Milk Of Magnesia 30 Ml Oral.Susp) 30 ml PO DAILY PRN PRN Reason: Constipation Melatonin (Melatonin 3 Mg Tablet) 6 mg PO BEDTIME PRN PRN Reason: Insomnia Metoprolol Succinate (Metoprolol Succinate Er 50 Mg Tab.Er.24h) 50 mg PO DAILY [facility]; Protocol Last Admin: 04/26/24 07:59 Dose: 50 mg Documented By: LEXX Mirtazapine (Mirtazapine 7.5 Mg Tablet) 7.5 mg PO BEDTIME [facility] Last Admin: 04/25/24 21:15 Dose: 7.5 mg Documented By: NASIMA Morphine Sulfate (Morphine Sulfate 4 Mg/Ml Cartridge) 4 mg IVPUSH Q4H PRN; Protocol PRN Reason: Pain, Severe (Pain Scale 7-10) Last Admin: 04/26/24 07:59 Dose: 4 mg Documented By: LEXX Naloxone HCl (Naloxone Hcl 0.4 Mg/Ml Vial) 0.04 mg IVPUSH Q5M PRN PRN Reason: Excessive sedation or RR < 8 Non-Formulary Medication (Latanoprostene Bunod [Vyzulta]) 1 drop EYE-BOTH BEDTIME [facility] Ondansetron HCl (Ondansetron Hcl 4 Mg/2 Ml Vial) 4 mg IVPUSH Q8H PRN PRN Reason: Nausea and Vomiting Senna (Sennosides 8.6 Mg Tablet) 17.2 mg PO DAILY PRN PRN Reason: Bowel Management Sodium Chloride (0.9 % Sodium Chloride Flush 3 Ml Syringe) 3 ml IVFLUSH QSHIFT [facility] Last Admin: 04/26/24 08:00 Dose: 3 ml Documented By: LEXX Timolol Maleate (Timolol Maleate 0.5 % Oph Peace 5 Ml Drbtl) 1 drop EYE-BOTH DAILY [facility] Labs 04/26/24 05:41 04/26/24 05:41 Labs: Laboratory Results - last 24 hr 04/26/24 05:41 MCV 90.3 MCH 30.0 MCHC 33.2 RDW 13.8 Plt Count 203 MPV 10.8 Absolute Nucleated RBC 0.000 Nucleated RBC % (auto) 0.0 Anion Gap 11 L Estim Creat Clear Calc 48.4 Estimated GFR > 60 Random Glucose 137 H Calcium 8.7 D Microbiology Microbiology Results: Microbiology 04/25/24 03:23 Blood Culture - Preliminary Blood - Venous No growth after 24 hours. 04/25/24 03:23 Blood Culture - Preliminary Blood - Venous No growth after 24 hours. 04/24/24 Unknown Urine Culture - Preliminary Urine clean catch - Clean Catch Midstream Culture too young to evaluate. Assessment and Plan (1) Fracture of femoral neck, left: Status: Acute Plan d2 89yo F LTC resident of [facility] with HTN, CAD [no hx PCI], osteoporosis, prior R hip hemiarthroplasty for femoral neck fracture in 2021 sustained L femur fracture after mechanical fall L femur fracture - POD1 L hip hemiarthroplasty, OK to start enoxaparin per Ortho, PT UTI - ceftriaxone 04/25-, BCx/UCx pending HTN CAD - metoprolol succinate; resume lisinopril today; resume furosemide tomorrow VTE ppx - enoxaparin dispo - LTC In my clinical judgment, the patient requires continued inpatient hospitalization for the following reasons: postoperative care Total time managing care of this patient today: 35 minutes. Quality Stroke Does the patient have a stroke diagnosis?: No VTE Prior VTE?: No VTE Risk Level:: Medical - moderate - high VTE Device Contraindication: N/A - Device Ordered VTE Drug Contraindication: Treatment Not Indicated
[2024-04-26] MEDS: timoloL maleate 0.5 % Oph Sol 5 ML DRBTL 1 DROP EYE-BOTH (14:31)
[2024-04-26] MEDS: Enoxaparin Sodium 40 MG/0.4 ML SYRINGE SUBCUT (14:31)
--- NOTE | 2024-04-26 14:43 | PC.NURSE ---
Lara cath removed at 1500. DTV @ 2100. Purewick placed.
--- NOTE | 2024-04-26 16:32 | P.OP_ITS ---
Operative Note Operative Note Date of Service: 04/25/24 Narrative: Date of Service: 04/25/24 Pre-op diagnosis: left femoral neck fx Post-op diagnosis: same Procedure: Left hip denise Implants: Maple Accolade#[id number] 127/ +0 26/44 bipolar Surgeon: David Alvarado MD Anesthesia: regional and local Was an [place] Tower Loader used for this Procedure?: No Estimated blood loss (mL): 150 IV fluids (mL): 750 Pathology: other Condition: stable Disposition: PACU Procedure in detail: Patient was brought to the operative room placed in the lateral decubitus position. All bony prominences were well padded and the was prepped and draped in standard sterile fashion. IV antibiotics per weight were administered and a time-out was called to identify proper site proper procedure proper surgeon. Radiographs were available and confirmed. I began by making a curvilinear incision over the posterolateral aspect of the greater trochanter. Dissection was taken down to the tensor fascia which was incised in line with the incision and a Charnley retractor was placed. The hip was internally rotated and the external rotators were identified. All vessels in the area were cauterized and a full-thickness capsular/external rotator layer was developed in a hockey-stick fashion starting just proximal to the piriformis. This layer was tagged and the displaced femoral neck fracture was identified. Clean-up cuts was performed while protecxtion the posterolateral soft tissues and the head was removed and m easured (44 mm) on the back table. I then copiously irrigated the acetabulum and removed all bony fragments. Once this was done I used a cookie cutter to lateralize and a Charnley awl to identify the canal and then sequentially broached up to a 127 deg #3. I then trialed with a standard head and a bipolar component matching the femoral head size. I was satisfied with the range of motion and stability and length. Therefore I removed all instrumentation and copiously irrigated. I then placed my final femoral implant and then retrialed. I was satisfied with the +0/44implant. My final bipolar components were then placed. I closed the capsular layer with FiberWire and then irrigated copiously. I performed a layered closure with karyna on skin. The patient was placed in sterile dressing extubated brought to recovery room in stable condition there were no known complications.
[2024-04-26] MEDS: Acetaminophen 325 MG TABLET 650 MG PO (18:11)
[2024-04-26] MEDS: lisinopriL 20 MG TABLET PO (18:11)
[2024-04-26] MEDS: Mirtazapine 7.5 MG TABLET PO (20:15)
--- NOTE | 2024-04-26 21:50 | PC.NURSE ---
Late entry: This RN assumed care at 1900, Upon initial assessment, pt appears to be very lethargic and sedated. Pt is AO to self, disoriented to time, place & situation. Pt denies pain, Lung sounds clear but diminished at bases, RR: 14, BSx4, no pain with palpation, Skin is intact. Pt allowed to sleep, with no apparent distress, VSS, call velasquez within reach.
[2024-04-26] MEDS: cefTRIAXone sodium 1 GM in 0.9 % Sodium Chloride 50 ML IV (22:28)
[2024-04-27] VITALS (9 sets, daily range): BP systolic 157–179; BP diastolic 56–74; PULSE 82–91; RESP 14–18; TEMP 36.3–37.2; O2SAT 92–97
[2024-04-27 05:58] LABS: Hematocrit 37.6 % (37.0-47.0); Hemoglobin 12.3 g/dl (12.0-16.0); Mean Corpuscular HGB Conc 32.7 g/dl (31.0-35.0); Mean Corpuscular Hemoglobin 29.8 pg (27.0-33.0); Platelet Count 214 X10*3/uL (160-400); Red Blood Count 4.13 X10*6/uL (4.20-5.50); Red Cell Distribution Width 13.7 % (11.0-16.0)
[2024-04-27 06:09] LABS: Anion Gap 15 (12-20); Blood Urea Nitrogen 20 mg/dL (9-16); Calcium 9.1 mg/dL (8.4-10.2); Carbon Dioxide 23 mmol/L (22-29); Chloride 106 mmol/L (96-108); Creatinine Clr Calc Pharmacy 49.6; Estimated Glomerular Filt Rate > 60; Glucose Random 137 mg/dL (60-115); Potassium 3.8 mmol/L (3.3-5.1); Sodium 140 mmol/L (135-145)
[2024-04-27] MEDS: Metoprolol Succinate ER 50 MG TAB.ER.24H PO (07:50)
[2024-04-27] MEDS: Acetaminophen 325 MG TABLET 650 MG PO (07:50)
[2024-04-27] MEDS: lisinopriL 20 MG TABLET PO (07:51)
[2024-04-27] MEDS: Furosemide 40 MG TABLET PO (07:51)
[2024-04-27] MEDS: Artificial Tears 15 ML DROPS 1 DROP EYE-BOTH ×4 (07:51→20:08)
[2024-04-27] MEDS: 0.9 % Sodium Chloride Flush 3 ML SYRINGE IVFLUSH ×2 (07:51→14:49)
[2024-04-27] MEDS: timoloL maleate 0.5 % Oph Sol 5 ML DRBTL 1 DROP EYE-BOTH (07:52)
--- NOTE | 2024-04-27 10:06 | MHC.CM.PN ---
Per MD rounds patient not medically cleared. Anticipate dc back to [facility] @ [facility] tomorrow 04/28. Facility updated.
--- NOTE | 2024-04-27 12:52 | P.PNIM_ITS ---
Subjective Subjective Date of Service: 04/27/24 Interval History: pain controlled no chest pain or dyspnea Review of Systems Review of Systems: Yes all other systems are reviewed and are negative Physical Exam 2 Vital Signs: Vital Signs: Last Vital Signs Temp 97.9 F 04/27/24 07:42 Pulse 91 04/27/24 07:58 Resp 18 04/27/24 07:42 BP 161/63 H 04/27/24 07:58 Pulse Ox 94 04/27/24 07:42 O2 Del Method Room Air 04/27/24 07:42 O2 Flow Rate 2 04/26/24 15:45 Oxygen Flow Rate 2 04/26/24 17:08 BMI result Body Mass Index 30.1 Gen: in no acute distress HEENT: sclera anicteric, moist mucus membranes Neck: supple Lungs: clear to auscultation bilaterally Heart: regular rate and rhythm, no murmurs Abd: soft, non-tender, non-distended Ext: no edema, L hip incision with dry bandage Skin: warm/well-perfused Neuro: alert and oriented x3, no focal findings Psych: appropriate affect Objective Data Active Medications Acetaminophen (Acetaminophen 325 Mg Tablet) 650 mg PO Q6H PRN PRN Reason: Pain, Mild (Pain Scale 1-3), fever or headache Last Admin: 04/27/24 07:50 Dose: 650 mg Documented By: LEXX Artificial Tears (Artificial Tears 15 Ml Drops) 1 drop EYE-BOTH QID [facility] Last Admin: 04/27/24 07:51 Dose: 1 drop Documented By: LEXX Bisacodyl (Bisacodyl 10 Mg Supp.Rect) 10 mg CA DAILY PRN PRN Reason: Bowel Management Calcium Carbonate (Calcium Carbonate 750 Mg Tab.Chew) 750 mg PO Q4H PRN PRN Reason: Heartburn Enoxaparin Sodium (Enoxaparin Sodium 40 Mg/0.4 Ml Syringe) 40 mg SUBCUT Q24H [facility] Last Admin: 04/26/24 14:31 Dose: 40 mg Documented By: LEXX Furosemide (Furosemide 40 Mg Tablet) 40 mg PO DAILY [facility]; Protocol Last Admin: 04/27/24 07:51 Dose: 40 mg Documented By: LEXX Ceftriaxone Sodium 1 gm/ (Sodium Chloride) 50 mls @ 100 mls/hr IV Q24H [facility] Last Infusion: 04/26/24 22:58 Dose: Infused Documented By: CELINA Cefazolin Sodium/Dextrose (Ancef) 2 gm in 50 mls @ 100 mls/hr IV POSTOP [facility] Lisinopril (Lisinopril 20 Mg Tablet) 20 mg PO DAILY [facility]; Protocol Last Admin: 04/27/24 07:51 Dose: 20 mg Documented By: LEXX Magnesium Hydroxide (Milk Of Magnesia 30 Ml Oral.Susp) 30 ml PO DAILY PRN PRN Reason: Constipation Melatonin (Melatonin 3 Mg Tablet) 6 mg PO BEDTIME PRN PRN Reason: Insomnia Metoprolol Succinate (Metoprolol Succinate Er 50 Mg Tab.Er.24h) 50 mg PO DAILY [facility]; Protocol Last Admin: 04/27/24 07:50 Dose: 50 mg Documented By: LEXX Mirtazapine (Mirtazapine 7.5 Mg Tablet) 7.5 mg PO BEDTIME [facility] Last Admin: 04/26/24 20:15 Dose: 7.5 mg Documented By: CELINA Naloxone HCl (Naloxone Hcl 0.4 Mg/Ml Vial) 0.04 mg IVPUSH Q5M PRN PRN Reason: Excessive sedation or RR < 8 Non-Formulary Medication (Latanoprostene Bunod [Vyzulta]) 1 drop EYE-BOTH BEDTIME [facility] Ondansetron HCl (Ondansetron Hcl 4 Mg/2 Ml Vial) 4 mg IVPUSH Q8H PRN PRN Reason: Nausea and Vomiting Oxycodone HCl (Oxycodone Hcl Immed Release 5 Mg Tablet) 2.5 mg PO Q4H PRN PRN Reason: Pain, Severe (Pain Scale 7-10) Senna (Sennosides 8.6 Mg Tablet) 17.2 mg PO DAILY PRN PRN Reason: Bowel Management Sodium Chloride (0.9 % Sodium Chloride Flush 3 Ml Syringe) 3 ml IVFLUSH QSHIFT [facility] Last Admin: 04/27/24 07:51 Dose: 3 ml Documented By: LEXX Timolol Maleate (Timolol Maleate 0.5 % Oph Peace 5 Ml Drbtl) 1 drop EYE-BOTH DAILY [facility] Last Admin: 04/27/24 07:52 Dose: 1 drop Documented By: LEXX Labs 04/27/24 05:31 04/27/24 05:31 Labs: Laboratory Results - last 24 hr 04/27/24 05:31 MCV 91.0 MCH 29.8 MCHC 32.7 RDW 13.7 Plt Count 214 MPV 11.0 Absolute Nucleated RBC 0.000 Nucleated RBC % (auto) 0.0 Anion Gap 15 Estim Creat Clear Calc 49.6 Estimated GFR > 60 Random Glucose 137 H Calcium 9.1 Microbiology Microbiology Results: Microbiology 04/24/24 Unknown Urine Culture - Final Urine clean catch - Clean Catch Midstream Escherichia coli 04/25/24 03:23 Blood Culture - Preliminary Blood - Venous No growth after 48 hours. 04/25/24 03:23 Blood Culture - Preliminary Blood - Venous No growth after 48 hours. Assessment and Plan (1) Fracture of femoral neck, left: Status: Acute Plan d3 89yo F LTC resident of [facility] with HTN, CAD [no hx PCI], osteoporosis, prior R hip hemiarthroplasty for femoral neck fracture in 2021 sustained L femur fracture after mechanical fall L femur fracture - POD2 L hip hemiarthroplasty, PT, enoxaparin E coli UTI resistant to cipro - ceftriaxone 04/25-, change to cefuroxime upon dischrage HTN CAD - metoprolol succinate; resumed lisinopril yesterday; resume furosemide today VTE ppx - enoxaparin x30d postop dispo - LTC In my clinical judgment, the patient requires continued inpatient hospitalization for the following reasons: postoperative care Total time managing care of this patient today: 35 minutes. Quality Stroke Does the patient have a stroke diagnosis?: No VTE Prior VTE?: No VTE Risk Level:: Medical - moderate - high VTE Device Contraindication: N/A - Device Ordered VTE Drug Contraindication: Treatment Not Indicated
[2024-04-27] MEDS: Enoxaparin Sodium 40 MG/0.4 ML SYRINGE SUBCUT (14:43)
[2024-04-27] MEDS: Mirtazapine 7.5 MG TABLET PO (20:07)
--- NOTE | 2024-04-27 23:19 | PC.NURSE ---
Assumed care of patient at 19:00. No IV access present. RN attempts this even have been unsuccessful. U/S IV requested, still waiting at this time; awaiting access for IV abx administration. Discussed with nursing telemarketing supervisor.
[2024-04-28] MEDS: cefTRIAXone sodium 1 GM VIAL IVPUSH (00:20)
[2024-04-28] MEDS: 0.9 % Sodium Chloride Flush 3 ML SYRINGE IVFLUSH ×2 (00:22→08:48)
[2024-04-28 04:00] VITALS: BP 156/72; PULSE 85; RESP 18; TEMP 36.6; O2SAT 93
[2024-04-28 08:00] VITALS: BP 194/99; PULSE 91; RESP 18; TEMP 37.2; O2SAT 94
[2024-04-28] MEDS: lisinopriL 20 MG TABLET PO (08:40)
[2024-04-28] MEDS: cefuroxime axetiL 250 MG TABLET PO (08:40)
[2024-04-28] MEDS: Metoprolol Succinate ER 50 MG TAB.ER.24H PO (08:40)
[2024-04-28] MEDS: Furosemide 40 MG TABLET PO (08:40)
[2024-04-28] MEDS: Artificial Tears 15 ML DROPS 1 DROP EYE-BOTH (08:41)
[2024-04-28] MEDS: timoloL maleate 0.5 % Oph Sol 5 ML DRBTL 1 DROP EYE-BOTH (08:41)
--- NOTE | 2024-04-28 09:35 | PM.PNORT ---
Subjective Subjective Date of Service: 04/28/24 Interval history: 89-year-old female who is postop day 3 status post left hip hemiarthroplasty Patient is resting comfortably in bed No acute events overnight Reports no pain at this time Per PT, patient has been ambulatory, although this has been difficult for her Patient is ambulatory with a walker at baseline No other acute complaints or concerns at this time Physical Exam Vital Signs: Vital Signs: Last Vital Signs Temp 98.9 F 04/28/24 08:00 Pulse 91 04/28/24 08:00 Resp 18 04/28/24 08:00 BP 194/99 H 04/28/24 08:00 Pulse Ox 94 04/28/24 08:00 O2 Del Method Room Air 04/28/24 08:00 O2 Flow Rate 2 04/26/24 15:45 Oxygen Flow Rate 2 04/26/24 17:08 BMI result Body Mass Index 30.1 Extrem: Other: Dressing on left hip clean, dry, intact No evidence of surrounding erythema, ecchymosis No evidence of infection Patient is able to flex and extend the digits of the left foot without difficulty Compartments soft, nontender Distal sensation intact Capillary refill brisk Procedures Date of Service Date of Service: 04/28/24 Progress Note: A&P Assessment and plan (1) Fracture of femoral neck, left: Status: Acute Plan 1. Left femoral neck fracture status post left hip hemiarthroplasty DOS 04/25/2024 Patient appears to be recovering well postoperatively Patient is educated about the typical recovery course Continue posterior precautions with left hip Continue anticoagulation with Lovenox Continue pain management Dispo planning-plan is for discharge back to SNF when medically cleared Continue with all other recommendations per Medicine Time Spent With Patient Time: Total time managing care of this patient today ____ minutes. Quality Stroke Does the patient have a stroke diagnosis?: No VTE Prior VTE?: No VTE Risk Level:: Medical - moderate - high VTE Device Contraindication: N/A - Device Ordered VTE Drug Contraindication: Treatment Not Indicated
[2024-04-28 09:45] VITALS: BP 180/74
[2024-04-28 12:00] VITALS: BP 144/80; PULSE 87; RESP 18; TEMP 37.4; O2SAT 96
--- NOTE | 2024-04-28 12:07 | PM.DS ---
DS: Providers Provider Date of Service: 04/28/24 Date of admission: 04/25/24 00:01 Date of discharge: 04/28/24 Primary care physician: Jonel Contreras MD Consults: 04/25/24 00:01 Consult to Orthopedics Routine Consulting Provider: [facility] Reason for consultation: left femur fracture DS: Diagnosis Discharge Diagnosis (1) Fracture of femoral neck, left: Status: Acute (2) Urinary tract infection: Status: Acute DS: Summary Hospital Course Hospital Course: From the history and physical by the admitting hospitalist, Fabio Michelle, 04/25/24:' This is a 89-year-old female, resident of [facility] with pertinent history of hypertension, coronary artery disease, osteoporosis, mood disorder who was brought to the emergency department for evaluation after a fall. Patient normally uses a walker to ambulate. She was walking in the hallway without a walker and fell on her left side. Did not hit her head. The fall was unwitnessed and patient denies dizziness or lightheadedness prior to the fall. No loss of consciousness prior to the fall. No jerking movement of extremities. No chest pain or palpitations prior to the fall. Was unable to bear weight on her left lower extremity after the fall. No fever, chills, shortness of breath, abdominal pain, changes in urinary or bowel habits. In the emergency department, imaging with left femoral neck fracture Nurse reported temp 100.8. Urine concerning for UTI. Initiating IV ceftriaxone 89yo F LTC resident of [facility] with HTN, CAD [no hx PCI], osteoporosis, and prior R hip hemiarthroplasty for femoral neck fracture in 2021 who this time sustained a L femur fracture after mechanical fall and was admitted to the hospitalist service with Orthopedics consultation. She underwent L hip hemiarthroplasty on 04/25/24 and had PT afterwards. She was started on enoxaparin for VTE prophylaxis, to continue for 6 weeks postoperatively. She was diagnosed with E. coli UTI resistant to ciprofloxacin and was treated with 3 days of IV ceftriaxone; she was discharged on 4 days of PO cefuroxime. She was discharged back to [facility] for long-term care with acute PT. Time Attestation Discharge Coordination Time (in mins): 35 Quality: Safe Use of Opioids Does Pt have an Active Cancer Diagnosis on the Problem List?: No Quality: Stroke Does the patient have a stroke diagnosis?: No Physical Exam Vital Signs: Vital Signs: Last Vital Signs Temp 98.9 F 04/28/24 08:00 Pulse 91 04/28/24 08:00 Resp 18 04/28/24 08:00 BP 180/74 H 04/28/24 09:45 Pulse Ox 94 04/28/24 08:00 O2 Del Method Room Air 04/28/24 08:00 O2 Flow Rate 2 04/26/24 15:45 Oxygen Flow Rate 2 04/26/24 17:08 BMI result Body Mass Index 30.1 Gen: in no acute distress HEENT: sclera anicteric, moist mucus membranes Neck: supple Lungs: clear to auscultation bilaterally Heart: regular rate and rhythm, no murmurs Abd: soft, non-tender, non-distended Ext: no edema, L hip incision with dry bandage Skin: warm/well-perfused Neuro: alert and oriented x3, no focal findings Psych: appropriate affect DS: Data Data Completed and Pending Completed studies during hospitalization [Text1]: Laboratory Results WBC 13.0 X10*3/uL (4.8-10.8) H 04/27/24 05:31 RBC 4.13 X10*6/uL (4.20-5.50) L 04/27/24 05:31 Hgb 12.3 g/dl (12.0-16.0) 04/27/24 05:31 Hct 37.6 % (37.0-47.0) 04/27/24 05:31 MCV 91.0 fL (80.0-98.0) 04/27/24 05:31 MCH 29.8 pg (27.0-33.0) 04/27/24 05:31 MCHC 32.7 g/dl (31.0-35.0) 04/27/24 05:31 RDW 13.7 % (11.0-16.0) 04/27/24 05:31 Plt Count 214 X10*3/uL (160-400) 04/27/24 05:31 MPV 11.0 fL (9.4-12.3) 04/27/24 05:31 Immature Gran % (Auto) 0.5 % (0.0-0.4) H 04/25/24 03:23 Neut % (Auto) 86.7 % (45-73) H 04/25/24 03:23 Lymph % (Auto) 9.4 % (20-40) L 04/25/24 03:23 [place] % (Auto) 2.9 % (2-11) 04/25/24 03:23 Eos % (Auto) 0.2 % (0-4) 04/25/24 03:23 Baso % (Auto) 0.3 % (0-2) 04/25/24 03:23 Lymph # (Auto) 1.1 X10*3/uL (1.2-4.9) L 04/25/24 03:23 [place] # (Auto) 0.3 X10*3/uL (0.1-1.2) 04/25/24 03:23 Eos # (Auto) 0.0 X10*3/uL (0.0-0.4) 04/25/24 03:23 Baso # (Auto) 0.0 X10*3/uL (0.0-0.2) 04/25/24 03:23 Abs Immat Gran (auto) 0.06 X10*3/uL (0.00-0.03) H 04/25/24 03:23 Absolute Neuts (auto) 10.2 x10*3/uL (2.0-8.3) H 04/25/24 03:23 Absolute Nucleated RBC 0.000 X10*3/uL (0.0-0.012) 04/27/24 05:31 Nucleated RBC % (auto) 0.0 /100WBC (0.0-0.2) 04/27/24 05:31 PT 11.7 SEC (10.9-12.4) 04/24/24 22:15 INR 1.0 (0.9-1.1) 04/24/24 22:15 APTT 32.4 SEC (26.0-36.8) 04/24/24 22:15 Sodium 140 mmol/L (135-145) 04/27/24 05:31 Potassium 3.8 mmol/L (3.3-5.1) 04/27/24 05:31 Chloride 106 mmol/L (96-108) 04/27/24 05:31 Carbon Dioxide 23 mmol/L (22-29) 04/27/24 05:31 Anion Gap 15 (12-20) 04/27/24 05:31 BUN 20 mg/dL (9-16) H 04/27/24 05:31 Creatinine 0.77 mg/dL (0.5-1.4) 04/27/24 05:31 Estim Creat Clear Calc 49.6 04/27/24 05:31 Estimated GFR > 60 04/27/24 05:31 Random Glucose 137 mg/dL (60-115) H 04/27/24 05:31 Lactic Acid 1.5 mmol/L (0.5-2.0) 04/25/24 03:23 Calcium 9.1 mg/dL (8.4-10.2) 04/27/24 05:31 Total Bilirubin 0.5 mg/dL (0.0-1.0) 04/24/24 20:42 AST 20 U/L (5-31) 04/24/24 20:42 ALT 18 U/L (0-31) 04/24/24 20:42 Alkaline Phosphatase 106 U/L (39-117) 04/24/24 20:42 Total Protein 7.5 g/dL (6.5-8.0) 04/24/24 20:42 Albumin 4.1 g/dL (3.5-5.0) 04/24/24 20:42 Urine Color Yellow 04/24/24 20:43 Urine Appearance Clear 04/24/24 20:43 Urine pH 5.5 (5.0-9.0) 04/24/24 20:43 Ur Specific [place] 1.020 (1.005-1.025) 04/24/24 20:43 Urine Protein Negative mg/dL (Neg-Trace) 04/24/24 20:43 Urine Glucose (UA) Negative mg/dL (Negative) 04/24/24 20:43 Urine Ketones Negative mg/dL (Negative) 04/24/24 20:43 Urine Blood Negative (Negative) 04/24/24 20:43 Urine Nitrite Positive (Negative) H 04/24/24 20:43 Ur Leukocyte Esterase Moderate (2+) (Negative) H 04/24/24 20:43 Urine RBC 0-2 /HPF (0-2) 04/24/24 20:43 Urine WBC 11-20 /HPF (0-5) 04/24/24 20:43 Ur Squamous Epith Cells 3-5 /HPF (0-2) 04/24/24 20:43 Urine Bacteria 4+ (None Seen) 04/24/24 20:43 Hyaline Casts 11-20 /LPF (0-2) 04/24/24 20:43 COVID-19 (EDUARD) Negative (Negative) 04/24/24 20:35 COVID-19 Clin Com See Note 04/24/24 20:35 Blood Type O Positive 04/24/24 22:56 Antibody Screen NEGATIVE 04/24/24 22:56 Impressions Hip/Pelvis X-Ray 04/24/24 20:02 IMPRESSION: Impacted and displaced left femoral neck fracture. Electronically signed by: Marlene Samano MD 04/24/2024 11:13 PM EDT RP Chest X-Ray 04/24/24 20:08 IMPRESSION: 1. No acute cardiopulmonary findings. 2. No acutely displaced rib fractures. Electronically signed by: Marlene Samano MD 04/24/2024 11:12 PM EDT RP Cervical Spine CT 04/24/24 21:07 IMPRESSION: 1. No acute intracranial abnormality. 2. No cervical spine fracture or traumatic malalignment. Electronically signed by: Fahad Joshi MD 04/24/2024 10:22 PM EDT RP Head CT 04/24/24 21:15 IMPRESSION: 1. No acute intracranial abnormality. 2. No cervical spine fracture or traumatic malalignment. Electronically signed by: Fahad Joshi MD 04/24/2024 10:22 PM EDT RP Labs on day of discharge: Preliminary micro results at discharge 04/25/24 03:23 Blood Culture - Preliminary Blood - Venous No growth after 48 hours. 04/25/24 03:23 Blood Culture - Preliminary Blood - Venous No growth after 48 hours. Discharge Plan Discharge Anticipated Discharge Date/Time: 04/28/24 12:01 Patient Disposition: [facility] Discharge Diagnosis: left femoral neck fracture urinary tract infection Referrals: David Alvarado MD [Physician] - 2 Weeks Jonel Contreras MD [Primary Care Provider] - 1 Week Discharge Medications: New cefuroxime axetil 250 mg Tablet 250 mg PO Q12H Qty: 8 0RF oxycodone 5 mg Tablet 2.5 mg PO Q4H PRN (Reason: Pain, Severe (Pain Scale 7-10)) Qty: 9 0RF Rx Instructions: Partial Fill upon patient request. enoxaparin 40 mg/0.4 mL Syringe 40 mg subcut Q24H Qty: 27 0RF Continued Vyzulta 0.024 % drops 1 drp ophthalmic (eye) BEDTIME furosemide 40 mg tablet 40 mg PO DAILY metoprolol succinate 50 mg tablet extended release 24 hr 50 mg PO DAILY potassium chloride 20 mEq tablet,ER particles/crystals 20 meq PO BID timolol maleate 0.25 % drops 1 drp ophthalmic (eye) DAILY mirtazapine 7.5 mg tablet 7.5 mg PO BEDTIME sennosides [senna] 8.6 mg Tablet 17.2 mg PO DAILY PRN (Reason: Bowel Management) ondansetron HCl 4 mg Tablet 4 mg PO Q6H PRN (Reason: Nausea And Vomiting) melatonin 3 mg Tablet 3 mg PO BEDTIME bisacodyl 10 mg Suppository 10 mg MD DAILY PRN (Reason: Bowel Management) Enema 19-7 gram/118 mL Enema 118 ml MD DAILY PRN (Reason: Bowel Movement) Artificial Tears (PF) Dropperette 1 drp OPHTHALMIC (EYE) QID acetaminophen 325 mg tablet 650 mg PO Q6H PRN (Reason: Fever Or Pain) lisinopril 20 mg tablet 20 mg PO DAILY Qty: 90 2RF Discharge Orders: Discharge Order (Routine); Ordered 04/28/24 Ordered By: Mita Hunt Diet: Advance to usual diet Activity on Discharge: As tolerated Stand Alone Forms: Patient Portal Discharge page Print Language: Icelandic Care Plan Goals: recovery from hip fracture cure of UTI Health Concerns: left femoral neck fracture urinary tract infection Plan of Treatment: Physical therapy for left hip hemiarthroplasty: WBAT, posterior precautions, gait training, range of motion, strength Limit stair climbing No showering, no tub bath-keep dressing clean dry and intact No driving for 6 weeks Continue Lovenox once daily for 6 weeks acetaminophen for mild-moderate pain, oxycodone for severe pain Follow-up with [facility] in 2 weeks cefuroxime 250 mg twice daily for 4 days Please follow up with your primary care doctor within 1 week. Return to the hospital if you experience recurrent or worsening symptoms. Assessment: See Discharge Summary.
--- NOTE | 2024-04-28 13:48 | MHC.CM.PN ---
PT CLEARED TO RETURN TO [facility] TODAY BLS TRANSPORT ARRANGED WITH [facility] FOR 1400 HOURS VM MESSAGE LEFT WITH HCP, GAUTAM RICE [phone]
== END 2024-04-28 14:12 | disposition skilled nursing facility (03) | DRG 522 ==
LOC: HO.ED 21:50 → HO.EDOVER 04-25 00:07 → HO.S3 04-25 16:43
PROVIDERS: Orthopaedic Surgery; Admitting Provider Student in an Organized Health Care Education/Training Program; Emergency Provider Internal Medicine; PCP Family Medicine; Visit Provider Family Medicine
PROC: 0SRS0JA Replacement of Left Hip Joint, Femoral Surface with Synthetic Substitute, Uncemented, Open Approach (ICD-10-PCS; CPT 27125; principal; 2024-04-25 13:50)
DX: S72.002A Fracture of unspecified part of neck of left femur, initial encounter for closed fracture (principal); N39.0 Urinary tract infection, site not specified; Z16.23 Resistance to quinolones and fluoroquinolones; W19.XXXA Unspecified fall, initial encounter; F03.90 Unspecified dementia, unspecified severity, without behavioral disturbance, psychotic disturbance, mood disturbance, and anxiety; B96.20 Unspecified Escherichia coli [E. coli] as the cause of diseases classified elsewhere; I10 Essential (primary) hypertension; I25.10 Atherosclerotic heart disease of native coronary artery without angina pectoris; M81.0 Age-related osteoporosis without current pathological fracture; Z20.822 Contact with and (suspected) exposure to COVID-19; Z66 Do not resuscitate; Z79.899 Other long term (current) drug therapy
CPT/HCPCS: 36415; 70450; 71045; 72125; 73502; 80048; 80053; 81001; 83605; 85025; 85027; 85610; 85730; 86850; 86900; 86901; 87040; 87086; 87088; 87186; 87635; 88305; 88311; 93005; 97116; 97163; 97167; 97535; 99285; C1758; C1776; J0360; J0690; J0696; J1650; J2003; J2270; J2405; J2704; J2795; J3010

== ENCOUNTER → 2024-04-24 20:02 | Outpatient (BNV) | payer MEDICARE, MEDICAID, SELFPAY | PROVIDERS: Admitting Provider Student in an Organized Health Care Education/Training Program; Emergency Provider Internal Medicine; PCP Family Medicine; Visit Provider Internal Medicine Cardiovascular Disease | DX: R55 Syncope and collapse (principal) | CPT/HCPCS: 93010 ==

== ENCOUNTER → 2024-04-25 00:01 | Outpatient (BNV) | payer MEDICARE, SELFPAY | PROVIDERS: Admitting Provider Student in an Organized Health Care Education/Training Program; Emergency Provider Internal Medicine; PCP Family Medicine; Visit Provider Physician Assistant | DX: S72.002A Fracture of unspecified part of neck of left femur, initial encounter for closed fracture (principal) | CPT/HCPCS: 27236; 99024; 99222 ==

== ENCOUNTER → 2024-04-25 00:01 | Outpatient (BNV) | payer MEDICARE, MEDICAID, SELFPAY | PROVIDERS: Admitting Provider Student in an Organized Health Care Education/Training Program; Emergency Provider Internal Medicine; PCP Family Medicine; Visit Provider Student in an Organized Health Care Education/Training Program | DX: N39.0 Urinary tract infection, site not specified (principal); S72.002A Fracture of unspecified part of neck of left femur, initial encounter for closed fracture | CPT/HCPCS: 99222; 99232; 99239; 99499 ==

== ENCOUNTER 2024-05-05 13:20 | Inpatient (IN) | payer MEDICARE, MEDICAID, SELFPAY ==
[2024-05-05] VITALS (8 sets, daily range): BP systolic 131–162; BP diastolic 37–88; PULSE 72–89; RESP 14–17; TEMP 36.4–37.5; O2SAT 96–98; BMI 22.7
--- NOTE | ~2024-05-05 | XR_ITS ---
EXAMINATION: XR CHEST CLINICAL INFORMATION: Mental status change. COMPARISON: Chest x-ray dated 04/24/2024. TECHNIQUE: AP upright portable view of the chest was obtained. FINDINGS: EKG leads overlie the chest. The cardiomediastinal silhouette is within normal limits in size. Lungs bilaterally are symmetrically expanded and clear. The patient's chin partially overlies the extreme lung apices, obscuring assessment. No focal consolidation, effusion or pneumothorax is seen. Bony structures are unremarkable. XR/XR chest 1V IMPRESSION: No acute cardiopulmonary process. Electronically signed by: Naya Hernandez MD 05/05/2024 03:12 PM EDT
--- NOTE | ~2024-05-05 | MR_ITS ---
EXAMINATION: MR BRAIN WITH CONTRAST CLINICAL INFORMATION: Stroke. Mental status changes. Altered mental status. Encephalitis. COMPARISON: Brain MRI from 05/06/2024. TECHNIQUE: MRI of the brain was obtained using routine sequences without and following the administration of 6 mL of Gadavist intravenous contrast. FINDINGS: No abnormal intracranial enhancement. The previously demonstrated infarct of the left MCA territory is better demonstrated on prior diffusion-weighted imaging. Chronic lacunar infarcts of the bilateral caudate heads, right greater than left lentiform nuclei, and left thalamus. Proportional prominence of the ventricles and sulcal spaces without evidence of obstructive hydrocephalus. No abnormal mass effect or midline shift. No abnormal intracranial enhancement. Mild mucosal thickening of the paranasal sinuses. No signal abnormalities within the mastoids. MR/MR head/brain w con IMPRESSION: 1. No abnormal intracranial enhancement. 2. The previously demonstrated infarct of the left MCA territory is better demonstrated on prior diffusion-weighted imaging. Chronic lacunar infarcts of the deep nuclei. Electronically signed by: Shabbir Mckay DO 05/07/2024 06:10 PM EDT
--- NOTE | ~2024-05-05 | CT_ITS ---
EXAMINATION: CTA NECK WITH CONTRAST (STROKE) CTA BRAIN WITH CONTRAST (STROKE) CLINICAL INFORMATION: Mental status change COMPARISON: None available. TECHNIQUE: CTA of the head and neck was performed in the axial plane from the mediastinum to the skull vertex using 70 mL Omnipaque 350 intravenous contrast. Additional reformatted multiplanar images including maximum intensity projection MIP images are generated on the CT workstation. This CT examination was performed using dose optimization techniques as appropriate, variously including the following: *Automated exposure control *Adjustment of mA and/or kV according to patient size (this includes techniques or standardized protocols for targeted exams where dose is matched to indication/reason for exam; i.e. extremities or head) *Use of iterative reconstruction technique DLP: 1459 mGy-cm FINDINGS: CTA Head: The intracranial internal carotid arteries are normal in configuration. The anterior and middle cerebral arteries are patent with normal contrast enhancement and branching pattern. There is a normal anterior communicating artery complex. There is a right dominant vertebral artery, a normal variant. There is moderate stenosis of the distal basilar artery. There is junctional prominence of the basilar artery. The right P1 segment is diminutive. There is a origin of the right posterior cerebral artery, a normal variant. The posterior cerebral arteries are otherwise patent. The left posterior communicating artery is unremarkable. There is no evidence of stenosis, occlusion, aneurysm or arteriovenous malformation. CTA Neck: The visualized aortic arch and origins of the major vessels are unremarkable. Mild atheromatous plaque is noted at the right carotid bulb, without significant stenosis by NASCET criteria. The right common, internal and external carotid arteries are otherwise normal in appearance. Mild atheromatous plaque is noted at the left carotid bulb, without significant stenosis by NASCET criteria. The left common, internal and external carotid arteries are otherwise normal in appearance. The cervical portions of the vertebral arteries demonstrate normal enhancement. There is no evidence of a significant stenosis or a dissection. The visualized soft tissues are unremarkable. The visualized lung is unremarkable. Anterolisthesis at C4-C5, C5-C6, and C6-C7. Multilevel degenerative disease. CT/CT angio head neck stroke IMPRESSION: 1. 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 2. No occlusions or dissection. Electronically signed by: Serina Grace MD 05/05/2024 04:47 PM EDT
--- NOTE | ~2024-05-05 | MR_ITS ---
EXAMINATION: MR BRAIN WITHOUT CONTRAST CLINICAL INFORMATION: Decreased level of consciousness. COMPARISON: CTA head and neck dated May 05, 2024. TECHNIQUE: MRI of the brain was obtained using routine sequences without contrast. FINDINGS: There is a moderate size area of abnormal restricted diffusion involving the left frontal lobe, left frontal operculum, left temporal lobe, and left parietal lobe with corresponding areas of increased signal on T2 and FLAIR sequences consistent with a subacute left middle cerebral artery infarct. There is no evidence of hemorrhagic transformation. There is mild to moderate microvascular ischemic change. There is no midline shift or mass effect. No extra-axial fluid collection. There is mild global cerebral volume loss. No hydrocephalus. Midline structures are normal in appearance. The cerebellar tonsils are normally positioned. The cervicomedullary junction is normal in appearance. The flow voids at the base of the brain appear maintained. The orbits are symmetric and within normal limits. There is mild ethmoid air cell mucosal thickening. The mastoid air cells are well aerated. MR/MR head/brain wo con IMPRESSION: There is a moderate size area of abnormal restricted diffusion involving the left frontal lobe, left frontal operculum, left temporal lobe, and left parietal lobe with corresponding areas of increased signal on T2 and FLAIR sequences consistent with a subacute left middle cerebral artery infarct. This critical result was discussed with Dr Garduno at 12:08 PM on 05/07/2024 and it was ascertained that the content and urgency of the report was understood at the time of direct communication. Electronically signed by: Israel Ragsdale DO 05/07/2024 12:09 PM EDT
--- NOTE | ~2024-05-05 | CT_ITS ---
EXAMINATION: CT HEAD WITHOUT CONTRAST (STROKE PROTOCOL) CLINICAL INFORMATION: Stroke protocol. COMPARISON: Head CT on 04/24/2024 TECHNIQUE: Contiguous axial imaging was performed from the skull base to vertex without intravenous administration of contrast. This CT examination was performed using dose optimization techniques as appropriate, variously including the following: *Automated exposure control *Adjustment of mA and/or kV according to patient size (this includes techniques or standardized protocols for targeted exams where dose is matched to indication/reason for exam; i.e. extremities or head) *Use of iterative reconstruction technique DLP: 624 mGy-cm RESULTS: There is no evidence of acute intracranial hemorrhage, acute large vessel infarct, midline shift or mass effect. The armando-white differentiation is preserved. There are patchy periventricular and subcortical white matter changes, which are nonspecific, but likely represent chronic microangiopathic change in a patient of this age. . The ventricles and sulci are within normal limits in size and configuration. There is no evidence of hydrocephalus. There are no extraaxial collections. Osseous structures are intact. Paranasal sinuses and mastoid air cells are well aerated. CT/CT head for stroke IMPRESSION: No acute intracranial pathology. Electronically signed by: Serina Grace MD 05/05/2024 01:36 PM EDT
--- NOTE | ~2024-05-05 | FL_ITS ---
FLUOROSCOPIC GUIDED LUMBAR PUNCTURE Indication: Altered mental status. CVA Risks and benefits and possible complications were discussed with the patient's healthcare territory representative and informed consent was obtained. Patient was placed prone on the fluoroscopy table. The back was prepped and draped in routine sterile fashion. Betadine was used as a skin antiseptic. Utilizing fluoroscopic guidance, the L3-4 interlaminar space was accessed with a 22 gague quinkie spinal needle and clear CSF fluid was obtained. Opening pressure was 14 cm H2O in the prone position. 9 cc of fluid was sent for analysis. The needle was removed without immediate complications. Total fluoroscopy time: 0.3 min FL/FL guided lumbar puncture LP IMPRESSION: Successful fluoroscopic guided lumbar puncture. This procedure was performed by Fahad Johnson PA-C and supervised by Dr. Mason. Electronically signed by: Mk Mason MD 05/07/2024 04:13 PM EDT
--- NOTE | 2024-05-05 13:25 | ECG_ITS ---
Test Reason : STROKE Blood Pressure : / mmHG Vent. Rate : 092 BPM Atrial Rate : 092 BPM P-R Int : 134 ms QRS Dur : 070 ms QT Int : 340 ms P-R-T Axes : 000 -17 -15 degrees QTc Int : 420 ms Artifact in tracing Normal sinus rhythm Probably normal EK G When compared with ECG of 24-APR-2024 20:23, No significant changes seen Referred By: Ramesh Moeller Electronically Signed By:SAGAR MANLEY
[2024-05-05 13:36] LABS: Prothrombin Time Whole Bld POC 13.7 sec (11.1-13.5); ~PT, ~INR - Anti Coag Clinic 1.1 (0.9-1.1)
[2024-05-05 13:36] LABS: Glucose, Whole Blood 100 mg/dL (60-115)
[2024-05-05 13:48] LABS: MANUAL DIFF FLAG NO
[2024-05-05 13:49] LABS: Basophils Percent Auto 0.2 % (0-2); Eosinophils Percent Auto 0.2 % (0-4); Hematocrit 39.5 % (37.0-47.0); Imm Gran Abs Auto 0.11 X10*3/uL (0.00-0.03); Imm Gran Pct Auto 1.2 % (0.0-0.4); Lymphocytes Absolute Auto 1.7 X10*3/uL (1.2-4.9); Mean Corpuscular HGB Conc 32.9 g/dl (31.0-35.0); Mean Platelet Volume 9.8 fL (9.4-12.3); Monocytes Absolute Auto 0.9 X10*3/uL (0.1-1.2); Monocytes Percent Auto 9.8 % (2-11); Neutrophils Absolute Auto 6.2 x10*3/uL (2.0-8.3); Neutrophils Percent Auto 69.6 % (45-73); Platelet Count 453 X10*3/uL (160-400); Red Blood Count 4.34 X10*6/uL (4.20-5.50); Red Cell Distribution Width 13.4 % (11.0-16.0); White Blood Count 8.9 X10*3/uL (4.8-10.8)
[2024-05-05 13:55] LABS: INTERNATIONAL NORM RATIO 1.2 (0.9-1.1); Prothrombin Time 13.6 SEC (10.9-12.4)
[2024-05-05 14:04] LABS: Alanine Aminotransferase 39 U/L (0-31); Albumin Level 3.6 g/dL (3.5-5.0); Alkaline Phosphatase 103 U/L (39-117); Anion Gap 16 (12-20); Aspartate Amino Transferase 28 U/L (5-31); Bilirubin Direct 0.2 mg/dL (0.0-0.5); Bilirubin Total 0.5 mg/dL (0.0-1.0); Blood Urea Nitrogen 22 mg/dL (9-16); Calcium 9.5 mg/dL (8.4-10.2); Carbon Dioxide 24 mmol/L (22-29); Chloride 104 mmol/L (96-108); Creatinine Clr Calc Pharmacy 35.3; Estimated Glomerular Filt Rate 56; Glucose Random 113 mg/dL (60-115); Lipase 61 U/L (8-78); Potassium 5.1 mmol/L (3.3-5.1); Sodium 139 mmol/L (135-145); Total Protein 7.2 g/dL (6.5-8.0)
[2024-05-05 14:06] LABS: Lactic Acid 2.5 mmol/L (0.5-2.0)
[2024-05-05 14:09] LABS: B Type Natriuretic Peptide 244 pg/mL (<100)
[2024-05-05 14:11] LABS: Troponin-I High Sensitivity 11.5 ng/L (<3.5-17.0)
[2024-05-05 14:24] LABS: Appearance Urine Clear; Color Urine Yellow; Glucose Urine UA Negative (Negative); Leukocyte Esterase Urine Negative (Negative); Nitrite Urine Negative (Negative); Specific Gravity - Urine 1.015 (1.005-1.025); Urine Blood Negative (Negative); Urine Ketones Negative (Negative); Urine Protein Negative (Neg-Trace)
[2024-05-05 14:46] LABS: Influenza A PCR NEGATIVE (Negative); Influenza B PCR NEGATIVE (Negative); Resp Syncy Virus RNA Qual PCR NEGATIVE (Negative); SARS COV2 PCR INHOUSE NEGATIVE (Negative)
--- NOTE | 2024-05-05 15:44 | ED.AMS ---
HPI - Altered Mental Status General Chief Complaint: Altered Mental Status Stated Complaint: STROKE ALERT,LKW 830 PER EMS Time Seen by Provider: 05/05/24 13:24 Source: patient, family ( [id number]) and EMS Mode of arrival: EMS Limitations: altered mental status History of Present Illness ED Provider: DR. Moeller HPI narrative: 89-year-old female from [facility] HTN, CAD, osteoporosis, mood disorder, patient has been bedridden lately normally patient is oriented confused sometimes but able to carry on conversation with family and staff, last known well was after breakfast at 08:00 o'clock this morning the patient found to be unresponsive, not following commands, staff noticed slight right facial droop. Patient is non historian in the ED, unable to obtain history history was taken from her [id number]/ HCP. Primary stroke survey can not be done secondary to change mental status. Related Data Home Medications ?Medication ?Instructions ?Recorded ?Confirmed latanoprostene bunod 0.024 % eye 1 drp ophthalmic (eye) BEDTIME 11/11/21 04/25/24 drops (Vyzulta) acetaminophen 325 mg tablet 650 mg PO Q6H PRN Fever Or Pain 04/25/24 04/25/24 bisacodyl 10 mg rectal suppository 10 mg IN DAILY PRN Bowel Management 04/25/24 04/25/24 dextran 70-hypromellose eye drops 1 drp ophthalmic (eye) QID 04/25/24 04/25/24 in a dropperette (Artificial Tears (PF) drops in a dropperette) furosemide 40 mg tablet 40 mg PO DAILY 04/25/24 04/25/24 melatonin 3 mg tablet 3 mg PO BEDTIME 04/25/24 04/25/24 metoprolol succinate 50 mg 50 mg PO DAILY 04/25/24 04/25/24 tablet,extended release 24 hr mirtazapine 7.5 mg tablet 7.5 mg PO BEDTIME 04/25/24 04/25/24 ondansetron HCl 4 mg tablet 4 mg PO Q6H PRN Nausea And Vomiting 04/25/24 04/25/24 potassium chloride 20 mEq 20 meq PO BID 04/25/24 04/25/24 tablet,extended release(part/cryst) sennosides 8.6 mg tablet (senna) 17.2 mg PO DAILY PRN Bowel 04/25/24 04/25/24 Management sodium phosphates 19 gram-7 118 ml IN DAILY PRN Bowel Movement 04/25/24 04/25/24 gram/118 mL enema (Enema) timolol maleate 0.25 % eye drops 1 drp ophthalmic (eye) DAILY 04/25/24 04/25/24 Previous Rx's ?Medication ?Instructions ?Recorded lisinopril 20 mg tablet 20 mg PO DAILY #90 caps 10/08/21 cefuroxime axetil 250 mg tablet 250 mg PO Q12H #8 tabs 04/28/24 enoxaparin 40 mg/0.4 mL 40 mg (0.4 mL) subcut Q24H #27 ea 04/28/24 subcutaneous syringe oxycodone 5 mg tablet 2.5 mg (1/2 x 5 mg) PO Q4H PRN 04/28/24 Pain, Severe (Pain Scale 7-10) #9 tabs Allergies Allergy/AdvReac Type Severity Reaction Status Date / Time atorvastatin [Lipitor] Allergy Unknown Unknown Verified 05/05/24 13:36 ciprofloxacin [Cipro] Allergy Unknown nausea Verified 05/05/24 13:36 ezetimibe [Zetia] Allergy Unknown Unknown Verified 05/05/24 13:36 pravastatin [Pravachol] Allergy Unknown Unknown Verified 05/05/24 13:36 simvastatin Allergy Unknown Unknown Verified 05/05/24 13:36 sulfamethoxazole Allergy Unknown Unknown Verified 05/05/24 13:36 [From Septra] trimethoprim [From Septra] Allergy Unknown Unknown Verified 05/05/24 13:36 Review of Systems Review of Systems: Yes Unobtainable due to mental status [facility] Past Medical History Medical History Fracture of femoral neck, right Urinary tract infection Closed hip fracture requiring operative repair Fracture of right distal radius Diverticular disease Cholelithiasis Glaucoma Vestibular neuronitis of both ears Hypertension Hypercholesterolemia Coronary artery disease Osteoporosis Surgical History Hx of nasal septoplasty History of surgery History of eye surgery History of appendectomy History of tonsillectomy History of total abdominal hysterectomy and bilateral salpingo-oophorectomy History of cataract surgery Family History Family History Father No problems noted. Mother CVD (cardiovascular disease) Hypertension Social History Social History Household Members: None Housing: Other Housing Other:: [facility] Alcohol intake: never Comment: Pt not impulsive; no camera in place on assuming care Patient Tobacco Use Status: Never used Tobacco Smoked in Last 30 Days: No e-Cigarette/Vaping Use: Never Used Second Hand Smoke Exposure: No Use of substances other than those prescribed or required for medical reasons: No Advance Directives: Yes Advance Directives on File: Yes Advance Directives Date on File: 10/08/21 Do you have a plan to hurt others: No Plan service: No Current occupational status: retired Physical Exam ED Vital Signs: Vital Signs - 24 hr 05/05/24 13:35 05/05/24 14:01 05/05/24 14:43 Temperature 99.2 F 99.5 F Pulse Rate 89 81 Respiratory Rate 16 15 Blood Pressure 158/71 H 131/58 L Pulse Oximetry 97 Oxygen Delivery Method Room Air Room Air BMI result Body Mass Index 22.7 Vital signs have been reviewed and appear to be correct. Blood pressure elevated. Heart rate normal. Respiratory rate normal. Temperature normal. Oxygen saturation normal. Appearance: Disoriented, disregard examiner, No acute distress. Head: Normal external exam. Normocephalic. Atraumatic. No [place] signs noted. No raccoon eyes noted Eyes: PERRLA. EOMI. Conjunctiva and sclera normal. Eyelids normal. ENT: TM's Normal. Pharynx normal. Uvula midline. Moist mucous membranes. No trismus noted. No drooling noted. No muffled voice noted. Neck: Normal inspection. Neck supple. FROM. No adenopathy. Thyroid Normal. No meningeal signs. No neck mass noted. CVS: Normal heart rate and rhythm. Heart sound normal. No murmurs noted. Pulses normal throughout. Respiratory: No respiratory distress. Painless inspiration. Breath sounds normal. No wheezes/rales/rhonchi noted. Chest nontender. No accessory muscle usage noted or decreased air movement noted. Abdomen: Soft and nontender. Bowel sounds normal in all 4 quadrants. No distention noted. No organomegaly noted. No visible injury noted. Back: No CVA tenderness. Full range of motion noted. Skin: Skin warm and dry. Normal skin color. Normal skin turgor. No rashes/lesions/lacerations noted. Extremities: No lower extremity edema. Extremities exhibit normal range of motion. Extremities nontender. Neuro: unable to perform detailed neuro exam due to change mental status, able to move 4 extremities. Course Reevaluation(s) Reevaluation #1: acute mental status change worsening from her baseline, last known was 5 hours before her presentation to the ED. Unable to perform neuro exam or getting NIH exam initial head CT was negative patient by history is at window for thrombolysis, consider CT angio, labs are unremarkable otherwise. Signed out to Dr. Crump to check on the CTA and dispo likely were require admission. Time: 16:00 Medical Decision Making Differential Diagnosis Differential Diagnoses: The differential diagnosis associated with the presentation includes ( Intracranial bleed, ischemic stroke, electrolyte derangement, severe anemia, pneumonia, UTI.) Admission/Observation Consideration of admission/observation: Escalation of care including admission/observation considered Lab Data MDM Lab Attestation statement: I reviewed the patient's lab results. 05/05/24 13:44 05/05/24 13:44 Labs: Lab Results 05/05/24 05/05/24 05/05/24 Range/Units 13:31 13:32 13:44 WBC 8.9 (4.8-10.8) X10*3/uL RBC 4.34 (4.20-5.50) X10*6/uL Hgb 13.0 (12.0-16.0) g/dl Hct 39.5 (37.0-47.0) % MCV 91.0 (80.0-98.0) fL MCH 30.0 (27.0-33.0) pg MCHC 32.9 (31.0-35.0) g/dl RDW 13.4 (11.0-16.0) % Plt Count 453 H D (160-400) X10*3/uL MPV 9.8 (9.4-12.3) fL Immature Gran % (Auto) 1.2 H (0.0-0.4) % Neut % (Auto) 69.6 (45-73) % Lymph % (Auto) 19.0 L (20-40) % Giles % (Auto) 9.8 (2-11) % Eos % (Auto) 0.2 (0-4) % Baso % (Auto) 0.2 (0-2) % Lymph # (Auto) 1.7 (1.2-4.9) X10*3/uL [place]iles # (Auto) 0.9 (0.1-1.2) X10*3/uL Eos # (Auto) 0.0 (0.0-0.4) X10*3/uL Baso # (Auto) 0.0 (0.0-0.2) X10*3/uL Abs Immat Gran (auto) 0.11 H (0.00-0.03) X10*3/uL Absolute Neuts (auto) 6.2 (2.0-8.3) x10*3/uL Absolute Nucleated RBC 0.000 (0.0-0.012) X10*3/uL Nucleated RBC % (auto) 0.0 (0.0-0.2) /100WBC PT 13.6 H (10.9-12.4) SEC Whole Blood PT 13.7 H (11.1-13.5) sec INR 1.2 H (0.9-1.1) Whole Blood INR 1.1 (0.9-1.1) Sodium 139 (135-145) mmol/L Potassium 5.1 D (3.3-5.1) mmol/L Chloride 104 (96-108) mmol/L Carbon Dioxide 24 (22-29) mmol/L Anion Gap 16 (12-20) BUN 22 H (9-16) mg/dL Creatinine 0.95 (0.5-1.4) mg/dL Estim Creat Clear Calc 35.3 Estimated GFR 56 POC Glucose 100 (60-115) mg/dL Random Glucose 113 (60-115) mg/dL Lactic Acid 2.5 H* (0.5-2.0) mmol/L Calcium 9.5 (8.4-10.2) mg/dL Total Bilirubin 0.5 (0.0-1.0) mg/dL Direct Bilirubin 0.2 (0.0-0.5) mg/dL AST 28 (5-31) U/L ALT 39 H (0-31) U/L Alkaline Phosphatase 103 (39-117) U/L Troponin I High Sens 11.5 (<3.5-17.0) ng/L B-Natriuretic Peptide 244 H (<100) pg/mL Total Protein 7.2 (6.5-8.0) g/dL Albumin 3.6 (3.5-5.0) g/dL Lipase 61 (8-78) U/L Urine Color Urine Appearance Urine pH (5.0-9.0) Ur Specific [place] (1.005-1.025) Urine Protein (Neg-Trace) mg/dL Urine Glucose (UA) (Negative) mg/dL Urine Ketones (Negative) mg/dL Urine Blood (Negative) Urine Nitrite (Negative) Ur Leukocyte Esterase (Negative) Influenza Type A (PCR) NEGATIVE (Negative) Influenza Type B (PCR) NEGATIVE (Negative) RSV RNA Qual (PCR) NEGATIVE (Negative) SARS-CoV-2 RNA (RT-PCR) NEGATIVE (Negative) 05/05/24 Range/Units 14:12 WBC (4.8-10.8) X10*3/uL RBC (4.20-5.50) X10*6/uL Hgb (12.0-16.0) g/dl Hct (37.0-47.0) % MCV (80.0-98.0) fL MCH (27.0-33.0) pg MCHC (31.0-35.0) g/dl RDW (11.0-16.0) % Plt Count (160-400) X10*3/uL MPV (9.4-12.3) fL Immature Gran % (Auto) (0.0-0.4) % Neut % (Auto) (45-73) % Lymph % (Auto) (20-40) % [place] % (Auto) (2-11) % Eos % (Auto) (0-4) % Baso % (Auto) (0-2) % Lymph # (Auto) (1.2-4.9) X10*3/uL [place] # (Auto) (0.1-1.2) X10*3/uL Eos # (Auto) (0.0-0.4) X10*3/uL Baso # (Auto) (0.0-0.2) X10*3/uL Abs Immat Gran (auto) (0.00-0.03) X10*3/uL Absolute Neuts (auto) (2.0-8.3) x10*3/uL Absolute Nucleated RBC (0.0-0.012) X10*3/uL Nucleated RBC % (auto) (0.0-0.2) /100WBC PT (10.9-12.4) SEC Whole Blood PT (11.1-13.5) sec INR (0.9-1.1) Whole Blood INR (0.9-1.1) Sodium (135-145) mmol/L Potassium (3.3-5.1) mmol/L Chloride (96-108) mmol/L Carbon Dioxide (22-29) mmol/L Anion Gap (12-20) BUN (9-16) mg/dL Creatinine (0.5-1.4) mg/dL Estim Creat Clear Calc Estimated GFR POC Glucose (60-115) mg/dL Random Glucose (60-115) mg/dL Lactic Acid (0.5-2.0) mmol/L Calcium (8.4-10.2) mg/dL Total Bilirubin (0.0-1.0) mg/dL Direct Bilirubin (0.0-0.5) mg/dL AST (5-31) U/L ALT (0-31) U/L Alkaline Phosphatase (39-117) U/L Troponin I High Sens (<3.5-17.0) ng/L B-Natriuretic Peptide (<100) pg/mL Total Protein (6.5-8.0) g/dL Albumin (3.5-5.0) g/dL Lipase (8-78) U/L Urine Color Yellow Urine Appearance Clear Urine pH 6.0 (5.0-9.0) Ur Specific [place] 1.015 (1.005-1.025) Urine Protein Negative (Neg-Trace) mg/dL Urine Glucose (UA) Negative (Negative) mg/dL Urine Ketones Negative (Negative) mg/dL Urine Blood Negative (Negative) Urine Nitrite Negative (Negative) Ur Leukocyte Esterase Negative (Negative) Influenza Type A (PCR) (Negative) Influenza Type B (PCR) (Negative) RSV RNA Qual (PCR) (Negative) SARS-CoV-2 RNA (RT-PCR) (Negative) Independent Interpretation I performed an independent interpretation of an: Plain X-Ray ( chest: No acute cardiopulmonary process.) and CT Scan ( CT head : no acute intracranial pathology.) Radiology Impression Discussion of test interpretation with radiology: I have reviewed the radiologist's reading. Discharge Plan Discharge Clinical Impression: Acute alteration in mental status Patient Disposition: Admitted As Inpatient Prescriptions: No Action Vyzulta 0.024 % drops 1 drp ophthalmic (eye) BEDTIME furosemide 40 mg tablet 40 mg PO DAILY metoprolol succinate 50 mg tablet extended release 24 hr 50 mg PO DAILY potassium chloride 20 mEq tablet,ER particles/crystals 20 meq PO BID timolol maleate 0.25 % drops 1 drp ophthalmic (eye) DAILY mirtazapine 7.5 mg tablet 7.5 mg PO BEDTIME sennosides [senna] 8.6 mg Tablet 17.2 mg PO DAILY PRN (Reason: Bowel Management) ondansetron HCl 4 mg Tablet 4 mg PO Q6H PRN (Reason: Nausea And Vomiting) melatonin 3 mg Tablet 3 mg PO BEDTIME bisacodyl 10 mg Suppository 10 mg IN DAILY PRN (Reason: Bowel Management) Enema 19-7 gram/118 mL Enema 118 ml IN DAILY PRN (Reason: Bowel Movement) Artificial Tears (PF) Dropperette 1 drp OPHTHALMIC (EYE) QID acetaminophen 325 mg tablet 650 mg PO Q6H PRN (Reason: Fever Or Pain) cefuroxime axetil 250 mg Tablet 250 mg PO Q12H Qty: 8 0RF oxycodone 5 mg Tablet 2.5 mg PO Q4H PRN (Reason: Pain, Severe (Pain Scale 7-10)) Qty: 9 0RF Rx Instructions: Partial Fill upon patient request. enoxaparin 40 mg/0.4 mL Syringe 40 mg subcut Q24H Qty: 27 0RF lisinopril 20 mg tablet 20 mg PO DAILY Qty: 90 2RF Print Language: Tuvaluan
[2024-05-05 15:46] LABS: Reflex Lactate? Lactic Acid Added
[2024-05-05] MEDS: iohexoL 350 MG/ML 100 ML INFUS..BTL IV (15:47)
[2024-05-05 16:37] LABS: ~Lactic Acid-LAB USE ONLY 2.2 mmol/L (0.5-2.0)
[2024-05-05] MEDS: 0.9 % Sodium Chloride 1,000 ML 999 ML IVCONT (17:00)
[2024-05-05 17:12] LABS: Venous Blood Gas Refer to POC result
[2024-05-05 17:13] LABS: VBG Base Excess 0.2 mmol/L; VBG HCO3 24 mmol/L (22-26); VBG pCO2 37 mmHg; VBG pH 7.42 (7.32-7.43); VBG pO2 42 mmHg
[2024-05-05 17:16] LABS: Amphetamine Screen Urine Not Detected (Not Detect); Barbiturates, Urine Not Detected (Not Detect); Benzodiazepines Screen Urine Not Detected (Not Detect); Buprenorphine Scr Not Detected (Not Detect); Cannabinoid Screen Urine Not Detected (Not Detect); Cocaine Screen Urine Not Detected (Not Detect); Fentanyl, urine Not Detected (Not Detect); Methadone Screen, Urine Not Detected (Not Detect); Opiate Screen Urine Not Detected (Not Detect); Oxycodone Screen Urine Not Detected (Not Detect); Phencyclidine Screen Urine Not Detected (Not Detect)
[2024-05-05 18:21] LABS: Reflex Lactate? 2 Y
[2024-05-05] MEDS: Naloxone HCl 0.4 MG/ML VIAL 0.2 MG IVPUSH (18:27)
[2024-05-05] MEDS: Naloxone HCl 0.4 MG/ML VIAL IVPUSH (18:42)
[2024-05-05 18:54] LABS: Ammonia 27 umol/L (13-55)
[2024-05-05 18:58] LABS: ~Lactic Acid-LAB USE ONLY 1.2 mmol/L (0.5-2.0)
[2024-05-05 19:31] LABS: TSH reflex Free T4 0.81 uIU/mL (0.32-4.0)
--- NOTE | 2024-05-05 19:44 | P.HPHOSP_ITS ---
History of Present Illness Date of Service: 05/05/24 Attending physician on admission: Patrick Mcneil Chief Complaint: Unresponsive Galina Stroud is 89 years old woman with past medical history significant for dementia, essential hypertension, recent left femoral fracture repair, major depressive disorder and adjustment disorder was brought to the ED via EMS after she was found to be unresponsive. HPI was obtained from ED provider who stated that patient had breakfast this morning has been unresponsive since then. Patient has been taking oxycodone for pain. Narcan has been given twice without response. In the ED, she was found to have normal vital signs. Blood workup showed no leukocytosis. Hemoglobin is 13.0 and platelets 453. There is no bandemia. INR is 1.2. VBG showed no respiratory acidosis. Lactic acid was initially 2.5 and now is normal. TSH is normal. There are no electrolyte imbalances. Creatinine 0.95 and BUN 22. Ammonia is normal. Troponin is 11.5. LFTs are unremarkable except for slight elevation on ALT, 39. Urinalysis is normal. Toxicology is negative. Viral testing for COVID-19, influenza and RSV is negative. CXR is negative. Head CT scan without contrast showed no acute intracranial pathology. 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 Home medications list according to [facility]: Acetaminophen, artificial tears, bisacodyl, enemas, enoxaparin, furosemide, lisinopril, melatonin, metoprolol, mirtazapine, under certain, oxycodone, KCl 20 mEq, probiotics, senna, timolol drops and Vyzulta drops. ED tx: Narcan 0.6 mg IV (total), NS 1 L bolus. Review of Systems 2 Review of Systems: Yes Unobtainable due to mental status [facility] Medical History Fracture of femoral neck, right Urinary tract infection Closed hip fracture requiring operative repair Fracture of right distal radius Diverticular disease Cholelithiasis Glaucoma Vestibular neuronitis of both ears Hypertension Hypercholesterolemia Coronary artery disease Osteoporosis Family History Father No problems noted. Mother CVD (cardiovascular disease) Hypertension Surgical History Hx of nasal septoplasty History of surgery History of eye surgery History of appendectomy History of tonsillectomy History of total abdominal hysterectomy and bilateral salpingo-oophorectomy History of cataract surgery Social History Household Members: None Housing: Other Housing Other:: [facility] Alcohol intake: never Comment: Pt not impulsive; no camera in place on assuming care Patient Tobacco Use Status: Never used Tobacco Smoked in Last 30 Days: No e-Cigarette/Vaping Use: Never Used Second Hand Smoke Exposure: No Use of substances other than those prescribed or required for medical reasons: No Advance Directives: Yes Advance Directives on File: Yes Advance Directives Date on File: 10/08/21 Do you have a plan to hurt others: No Plan service: No Current occupational status: retired Meds Allergies Allergy/AdvReac Type Severity Reaction Status Date / Time atorvastatin [Lipitor] Allergy Unknown Unknown Verified 05/05/24 13:36 ciprofloxacin [Cipro] Allergy Unknown nausea Verified 05/05/24 13:36 ezetimibe [Zetia] Allergy Unknown Unknown Verified 05/05/24 13:36 pravastatin [Pravachol] Allergy Unknown Unknown Verified 05/05/24 13:36 simvastatin Allergy Unknown Unknown Verified 05/05/24 13:36 sulfamethoxazole Allergy Unknown Unknown Verified 05/05/24 13:36 [From Septra] trimethoprim [From Septra] Allergy Unknown Unknown Verified 05/05/24 13:36 Active Medications: Current Medications Heparin Sodium (Porcine) (Heparin Sodium,Porcine 5,000 Unit/Ml Vial) 5,000 unit SUBCUT Q12H [facility] Lactated Ringer's (Lr) 1,000 mls @ 80 mls/hr IVCONT .[id number] [facility] Stop: 05/06/24 08:14 Sodium Chloride (0.9 % Sodium Chloride Flush 3 Ml Syringe) 3 ml IVFLUSH QSHIFT [facility] Home Medications ?Medication ?Instructions ?Recorded ?Confirmed ?Last Taken ?Type latanoprostene bunod 0.024 % eye 1 drp ophthalmic (eye) BEDTIME 11/11/21 04/25/24 Unknown History drops (Vyzulta) acetaminophen 325 mg tablet 650 mg PO Q6H PRN Fever Or Pain 04/25/24 04/25/24 Unknown History bisacodyl 10 mg rectal suppository 10 mg OK DAILY PRN Bowel Management 04/25/24 04/25/24 Unknown History dextran 70-hypromellose eye drops 1 drp ophthalmic (eye) QID 04/25/24 04/25/24 Unknown History in a dropperette (Artificial Tears (PF) drops in a dropperette) furosemide 40 mg tablet 40 mg PO DAILY 04/25/24 04/25/24 Unknown History melatonin 3 mg tablet 3 mg PO BEDTIME 04/25/24 04/25/24 Unknown History metoprolol succinate 50 mg 50 mg PO DAILY 04/25/24 04/25/24 Unknown History tablet,extended release 24 hr mirtazapine 7.5 mg tablet 7.5 mg PO BEDTIME 04/25/24 04/25/24 Unknown History ondansetron HCl 4 mg tablet 4 mg PO Q6H PRN Nausea And Vomiting 04/25/24 04/25/24 Unknown History potassium chloride 20 mEq 20 meq PO BID 04/25/24 04/25/24 Unknown History tablet,extended release(part/cryst) sennosides 8.6 mg tablet (senna) 17.2 mg PO DAILY PRN Bowel 04/25/24 04/25/24 Unknown History Management sodium phosphates 19 gram-7 118 ml OK DAILY PRN Bowel Movement 04/25/24 04/25/24 Unknown History gram/118 mL enema (Enema) timolol maleate 0.25 % eye drops 1 drp ophthalmic (eye) DAILY 04/25/24 04/25/24 Unknown History Physical Exam 2 Vital Signs and Narrative: Vital Signs: Last Vital Signs Temp 99.2 F 05/05/24 18:32 Pulse 82 05/05/24 18:32 Resp 14 05/05/24 18:32 BP 136/61 05/05/24 18:32 Pulse Ox 97 05/05/24 18:32 O2 Del Method Room Air 05/05/24 18:32 BMI result Body Mass Index 22.7 Constitutional - Obtunded. Sleeping with mouth open. Unresponsive to painful stimuli. HEENT - Atraumatic head. PERRL. Normal sclerae. Dry oral mucosa. Heart - S1S2, RRR, No murmurs. Lungs - Normal lung expansion, Normal respiratory effort, No respiratory distress, CTA bilaterally Abdomen - NT / ND; +BS; No rebound or guarding Extremities - Left hip: Clean wound. Musculoskeletal - Normal inspection, normal ROM Skin - Warm/Dry Neurological - Unresponsive. No facial droop noted. Psychological - No agitation. Results Labs 05/05/24 13:44 05/05/24 13:44 Labs: Laboratory Results - last 24 hr 05/05/24 05/05/24 05/05/24 13:31 13:32 13:44 MCV 91.0 MCH 30.0 MCHC 32.9 RDW 13.4 Plt Count 453 H D MPV 9.8 Immature Gran % (Auto) 1.2 H Neut % (Auto) 69.6 Lymph % (Auto) 19.0 L Dunn % (Auto) 9.8 Eos % (Auto) 0.2 Baso % (Auto) 0.2 Lymph # (Auto) 1.7 Dunn # (Auto) 0.9 Eos # (Auto) 0.0 Baso # (Auto) 0.0 Abs Immat Gran (auto) 0.11 H Absolute Neuts (auto) 6.2 Absolute Nucleated RBC 0.000 Nucleated RBC % (auto) 0.0 PT 13.6 H Whole Blood PT 13.7 H INR 1.2 H Whole Blood INR 1.1 VBG pH VBG pCO2 VBG pO2 VBG HCO3 VBG O2 Saturation VBG Base Excess Anion Gap 16 Estim Creat Clear Calc 35.3 Estimated GFR 56 POC Glucose 100 Random Glucose 113 Lactic Acid 2.5 H* Lactic Acid F/U @ 2Hr Lactic Acid F/U @ 4Hr Calcium 9.5 Total Bilirubin 0.5 Direct Bilirubin 0.2 AST 28 ALT 39 H Alkaline Phosphatase 103 Ammonia Troponin I High Sens 11.5 B-Natriuretic Peptide 244 H Total Protein 7.2 Albumin 3.6 Lipase 61 TSH Hold Yellow Top Urine Color Urine Appearance Urine pH Ur Specific [place] Urine Protein Urine Glucose (UA) Urine Ketones Urine Blood Urine Nitrite Ur Leukocyte Esterase Urine Opiates Screen Ur Buprenorphine Scrn Ur Oxycodone Screen Urine Methadone Screen Urine Fentanyl Screen Ur Barbiturates Screen Ur Phencyclidine Scrn Ur Amphetamines Screen U Benzodiazepines Scrn Urine Cocaine Screen U Marijuana (THC) Screen Influenza Type A (PCR) NEGATIVE Influenza Type B (PCR) NEGATIVE RSV RNA Qual (PCR) NEGATIVE SARS-CoV-2 RNA (RT-PCR) NEGATIVE 05/05/24 05/05/24 05/05/24 14:12 16:16 17:09 MCV MCH MCHC RDW Plt Count MPV Immature Gran % (Auto) Neut % (Auto) Lymph % (Auto) Dunn % (Auto) Eos % (Auto) Baso % (Auto) Lymph # (Auto) Dunn # (Auto) Eos # (Auto) Baso # (Auto) Abs Immat Gran (auto) Absolute Neuts (auto) Absolute Nucleated RBC Nucleated RBC % (auto) PT Whole Blood PT INR Whole Blood INR VBG pH 7.42 VBG pCO2 37 VBG pO2 42 VBG HCO3 24 VBG O2 Saturation 66.0 VBG Base Excess 0.2 Anion Gap Estim Creat Clear Calc Estimated GFR POC Glucose Random Glucose Lactic Acid Lactic Acid F/U @ 2Hr 2.2 H* Lactic Acid F/U @ 4Hr Calcium Total Bilirubin Direct Bilirubin AST ALT Alkaline Phosphatase Ammonia Troponin I High Sens B-Natriuretic Peptide Total Protein Albumin Lipase TSH Hold Yellow Top Urine Color Yellow Urine Appearance Clear Urine pH 6.0 Ur Specific [place] 1.015 Urine Protein Negative Urine Glucose (UA) Negative Urine Ketones Negative Urine Blood Negative Urine Nitrite Negative Ur Leukocyte Esterase Negative Urine Opiates Screen Not Detected Ur Buprenorphine Scrn Not Detected Ur Oxycodone Screen Not Detected Urine Methadone Screen Not Detected Urine Fentanyl Screen Not Detected Ur Barbiturates Screen Not Detected Ur Phencyclidine Scrn Not Detected Ur Amphetamines Screen Not Detected U Benzodiazepines Scrn Not Detected Urine Cocaine Screen Not Detected U Marijuana (THC) Screen Not Detected Influenza Type A (PCR) Influenza Type B (PCR) RSV RNA Qual (PCR) SARS-CoV-2 RNA (RT-PCR) 05/05/24 05/05/24 18:37 18:43 MCV MCH MCHC RDW Plt Count MPV Immature Gran % (Auto) Neut % (Auto) Lymph % (Auto) Dunn % (Auto) Eos % (Auto) Baso % (Auto) Lymph # (Auto) Dunn # (Auto) Eos # (Auto) Baso # (Auto) Abs Immat Gran (auto) Absolute Neuts (auto) Absolute Nucleated RBC Nucleated RBC % (auto) PT Whole Blood PT INR Whole Blood INR VBG pH VBG pCO2 VBG pO2 VBG HCO3 VBG O2 Saturation VBG Base Excess Anion Gap Estim Creat Clear Calc Estimated GFR POC Glucose Random Glucose Lactic Acid Lactic Acid F/U @ 2Hr Lactic Acid F/U @ 4Hr 1.2 Calcium Total Bilirubin Direct Bilirubin AST ALT Alkaline Phosphatase Ammonia 27 Troponin I High Sens B-Natriuretic Peptide Total Protein Albumin Lipase TSH 0.81 Hold Yellow Top See Note Urine Color Urine Appearance Urine pH Ur Specific [place] Urine Protein Urine Glucose (UA) Urine Ketones Urine Blood Urine Nitrite Ur Leukocyte Esterase Urine Opiates Screen Ur Buprenorphine Scrn Ur Oxycodone Screen Urine Methadone Screen Urine Fentanyl Screen Ur Barbiturates Screen Ur Phencyclidine Scrn Ur Amphetamines Screen U Benzodiazepines Scrn Urine Cocaine Screen U Marijuana (THC) Screen Influenza Type A (PCR) Influenza Type B (PCR) RSV RNA Qual (PCR) SARS-CoV-2 RNA (RT-PCR) Imaging Radiologist's Impressions: Impressions Head CT 05/05/24 13:27 IMPRESSION: No acute intracranial pathology. Electronically signed by: Serina Grace MD 05/05/2024 01:36 PM EDT RP Chest X-Ray 05/05/24 13:29 IMPRESSION: No acute cardiopulmonary process. Electronically signed by: Naya Hernandez MD 05/05/2024 03:12 PM EDT RP Head/Neck CTA 05/05/24 15:44 IMPRESSION: 1. 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 2. No occlusions or dissection. Electronically signed by: Serina Grace MD 05/05/2024 04:47 PM EDT RP Assessment and Plan (1) Acute alteration in mental status: Status: Acute (2) Hypertension: Qualifiers: Hypertension type: essential hypertension Qualified Code(s): I10 - Essential (primary) hypertension Status: Acute Plan Galina Stroud is 89 y/o woman admitted with: * Decreased level of consciousness, etiology is unclear. Admit to hospitalist service. NPO. Aspiration precaution. Gentle IV fluids. Continue to monitor neurological status. Hold melatonin, mirtazapine and oxycodone. Brain MRI. Neurology consult. * Lactic acidosis, mild -resolved; cause is unclear. No tachycardia, no tachypnea, no fever, no hypotension. No evidence of acute infection. Blood cultures obtained -will follow results. * Distal basilar artery moderate stenosis. Aspirin 300 mg OK X1. Check Brain MRI and TTE. * Essential hypertension. Continue metoprolol and lisinopril when able. * Recent left femor fraxture surgery (Apr 25, 2024). Surgical wound is clean. * Glaucoma. Continue Timolol and Vyzulta drops. DVT prophylaxis: Heparin subcut Code status: DNR/DNI (BiPAP is okay). Patient will need hospitalization for at least 2 midnights for decreased level of consciousness of unclear etiology. She will need close monitoring of vital signs, neurological status, blood workup and evaluation by Neurology Quality Stroke Does the patient have a stroke diagnosis?: No VTE Prior VTE?: No VTE Risk Level:: Medical - moderate - high VTE Device Contraindication: Treatment Not Indicated VTE Drug Contraindication: N/A - Med Ordered
[2024-05-05] MEDS: Lactated Ringers 1,000 ML 80 ML IVCONT (19:52)
[2024-05-05] MEDS: Aspirin 300 MG SUPP.RECT PR (20:46)
[2024-05-06] VITALS (8 sets, daily range): BP systolic 124–198; BP diastolic 46–96; PULSE 66–98; RESP 17–22; TEMP 36.3–36.9; O2SAT 95–96
--- NOTE | 2024-05-06 04:45 | PC.NURSE ---
Patient bladder scanned at 02:30 for 540mls. MD rivera ordered to straight cath. Straight cath performed for 500mls.
--- NOTE | 2024-05-06 07:05 | PHA.MEDREC ---
Addendum entered by Gricelda Webster RPh 05/06/24 08:10: [facility] REC REVIEWED BY [facility]. NOTED THAT [facility] AND END DATE ON ORDER IS 06/13/24. Original Note: Pharmacy Consult ? Medication Reconciliation Pharmacy has completed the medication reconciliation. [facility] list.
[2024-05-06 07:07] LABS: MANUAL DIFF FLAG NO
[2024-05-06 07:17] LABS: Basophils Percent Auto 0.3 % (0-2); Eosinophils Absolute Auto 0.1 X10*3/uL (0.0-0.4); Eosinophils Percent Auto 1.9 % (0-4); Hematocrit 34.2 % (37.0-47.0); Imm Gran Abs Auto 0.06 X10*3/uL (0.00-0.03); Lymphocytes Absolute Auto 1.7 X10*3/uL (1.2-4.9); Lymphocytes Percent Auto 29.6 % (20-40); Mean Corpuscular HGB Conc 32.2 g/dl (31.0-35.0); Mean Corpuscular Hemoglobin 29.8 pg (27.0-33.0); Mean Corpuscular Volume 92.7 fL (80.0-98.0); Mean Platelet Volume 10.3 fL (9.4-12.3); Monocytes Absolute Auto 0.7 X10*3/uL (0.1-1.2); Monocytes Percent Auto 12.7 % (2-11); Neutrophils Absolute Auto 3.1 x10*3/uL (2.0-8.3); Neutrophils Percent Auto 54.5 % (45-73); Platelet Count 336 X10*3/uL (160-400); Red Blood Count 3.69 X10*6/uL (4.20-5.50); Red Cell Distribution Width 13.7 % (11.0-16.0); White Blood Count 5.8 X10*3/uL (4.8-10.8)
[2024-05-06 07:37] LABS: Alanine Aminotransferase 27 U/L (0-31); Albumin Level 2.7 g/dL (3.5-5.0); Alkaline Phosphatase 78 U/L (39-117); Anion Gap 9 (12-20); Aspartate Amino Transferase 22 U/L (5-31); Bilirubin Total 0.4 mg/dL (0.0-1.0); Blood Urea Nitrogen 18 mg/dL (9-16); Carbon Dioxide 21 mmol/L (22-29); Chloride 112 mmol/L (96-108); Creatinine Clr Calc Pharmacy 49.3; Estimated Glomerular Filt Rate > 60; Glucose Random 78 mg/dL (60-115); Sodium 138 mmol/L (135-145); Total Protein 5.3 g/dL (6.5-8.0)
[2024-05-06] MEDS: Aspirin 300 MG SUPP.RECT PR (08:46)
[2024-05-06] MEDS: Heparin Sodium,Porcine 5,000 UNIT/ML VIAL 5000 UNIT SUBCUT ×2 (08:46→20:20)
[2024-05-06] MEDS: 0.9 % Sodium Chloride Flush 3 ML SYRINGE IVFLUSH ×3 (08:47→22:20)
--- NOTE | 2024-05-06 09:49 | P.CNNE_ITS ---
History of Present Illness Data of Consult Service Date: 05/06/24 Primary Care Provider: Jonel Contreras MD HPI Reason for consult: Encephalopathy 89 years old woman with underlying diagnosis of dementia brought to hospital after she was found unresponsive and she has remained in unresponsive prompting this consultation. No obvious convulsion was noted. No definite etiology of unresponsiveness was found. She was unable to provide any history. Review of Systems 2 Review of Systems: Could not be done with her PMFSH Past Medical History Medical History Fracture of femoral neck, right Urinary tract infection Closed hip fracture requiring operative repair Fracture of right distal radius Diverticular disease Cholelithiasis Glaucoma Vestibular neuronitis of both ears Hypertension Hypercholesterolemia Coronary artery disease Osteoporosis Family History Family History Father No problems noted. Mother CVD (cardiovascular disease) Hypertension Surgical History Surgical History Hx of nasal septoplasty History of surgery History of eye surgery History of appendectomy History of tonsillectomy History of total abdominal hysterectomy and bilateral salpingo-oophorectomy History of cataract surgery Social History Social History Household Members: Unknown / Unable to assess Housing: [facility] Housing Other:: [facility] Alcohol intake: never Comment: Pt not impulsive; no camera in place on assuming care Patient Tobacco Use Status: Never used Tobacco e-Cigarette/Vaping Use: Never Used Second Hand Smoke Exposure: No Advance Directives Date on File: 10/08/21 service: No Current occupational status: retired Meds Allergies Allergy/AdvReac Type Severity Reaction Status Date / Time atorvastatin [Lipitor] Allergy Unknown Unknown Verified 05/05/24 13:36 ciprofloxacin [Cipro] Allergy Unknown nausea Verified 05/05/24 13:36 ezetimibe [Zetia] Allergy Unknown Unknown Verified 05/05/24 13:36 pravastatin [Pravachol] Allergy Unknown Unknown Verified 05/05/24 13:36 simvastatin Allergy Unknown Unknown Verified 05/05/24 13:36 sulfamethoxazole Allergy Unknown Unknown Verified 05/05/24 13:36 [From Septra] trimethoprim [From Septra] Allergy Unknown Unknown Verified 05/05/24 13:36 Active Medications: Current Medications Aspirin (Aspirin 300 Mg Supp.Rect) 300 mg AK DAILY [facility] Last Admin: 05/06/24 08:46 Dose: 300 mg Ceftriaxone Sodium (Ceftriaxone Sodium 1 Gm Vial) 1 gm IVPUSH Q24H [facility] Heparin Sodium (Porcine) (Heparin Sodium,Porcine 5,000 Unit/Ml Vial) 5,000 unit SUBCUT Q12H [facility] Last Admin: 05/06/24 08:46 Dose: 5,000 unit Sodium Chloride (0.9 % Sodium Chloride Flush 3 Ml Syringe) 3 ml IVFLUSH QSHIFT [facility] Last Admin: 05/06/24 08:47 Dose: 3 ml Home Medications ?Medication ?Instructions ?Recorded ?Confirmed ?Last Taken ?Type latanoprostene bunod 0.024 % eye 1 drp ophthalmic (eye) BEDTIME 11/11/21 05/06/24 Unknown History drops (Vyzulta) acetaminophen 325 mg tablet 650 mg PO Q6H PRN Fever Or Pain 04/25/24 05/06/24 Unknown History bisacodyl 10 mg rectal suppository 10 mg AK DAILY PRN Bowel Management 04/25/24 05/06/24 Unknown History dextran 70-hypromellose eye drops 1 drp ophthalmic (eye) QID 04/25/24 05/06/24 Unknown History in a dropperette (Artificial Tears (PF) drops in a dropperette) furosemide 40 mg tablet 40 mg PO DAILY 04/25/24 05/06/24 Unknown History melatonin 3 mg tablet 3 mg PO BEDTIME 04/25/24 05/06/24 Unknown History metoprolol succinate 50 mg 50 mg PO DAILY 04/25/24 05/06/24 Unknown History tablet,extended release 24 hr mirtazapine 7.5 mg tablet 7.5 mg PO BEDTIME 04/25/24 05/06/24 Unknown History ondansetron HCl 4 mg tablet 4 mg PO Q6H PRN Nausea And Vomiting 04/25/24 05/06/24 Unknown History potassium chloride 20 mEq 20 meq PO BID 04/25/24 05/06/24 Unknown History tablet,extended release(part/cryst) sennosides 8.6 mg tablet (senna) 17.2 mg PO DAILY PRN Bowel 04/25/24 05/06/24 Unknown History Management sodium phosphates 19 gram-7 118 ml AK DAILY PRN Bowel Movement 04/25/24 05/06/24 Unknown History gram/118 mL enema (Enema) timolol maleate 0.25 % eye drops 1 drp ophthalmic (eye) DAILY 04/25/24 05/06/24 Unknown History Saccharomyces boulardii 250 mg 250 mg PO BID 05/06/24 05/06/24 Unknown History capsule (Probiotic (S.boulardii)) Physical Exam 2 Vital Signs: Vital Signs: Last Vital Signs Temp 97.4 F 05/06/24 08:00 Pulse 66 05/06/24 08:00 Resp 20 05/06/24 08:00 BP 154/69 H 05/06/24 08:00 Pulse Ox 96 05/06/24 08:00 O2 Del Method Room Air 05/06/24 08:00 BMI result Body Mass Index 22.7 Neuro: Other: She is minimally responsive to pain little bit withdrawing. Nonresponsive to verbal commands. She kept her eyes closed but with some force I was able to partly open them. Eyes were deviated to the left with little bit of jerking. There was mild right-sided facial flatness. She has mild grasp reflex in both hands. Plantars were flat. Otherwise exam is limited. Results Labs 05/06/24 06:24 05/06/24 06:24 Labs: Short CBC 05/05/24 05/06/24 Range/Units 13:44 06:24 WBC 8.9 5.8 (4.8-10.8) X10*3/uL Hgb 13.0 11.0 L (12.0-16.0) g/dl Hct 39.5 34.2 L (37.0-47.0) % Plt Count 453 H D 336 D (160-400) X10*3/uL BMP 05/05/24 05/06/24 13:44 06:24 Sodium 139 138 Potassium 5.1 D 4.0 D Chloride 104 112 H Carbon Dioxide 24 21 L BUN 22 H 18 H Creatinine 0.95 0.68 Calcium 9.5 8.0 L D Liver Function 05/05/24 05/06/24 Range/Units 13:44 06:24 Total Bilirubin 0.5 0.4 (0.0-1.0) mg/dL Direct Bilirubin 0.2 (0.0-0.5) mg/dL AST 28 22 (5-31) U/L ALT 39 H 27 (0-31) U/L Alkaline Phosphatase 103 78 (39-117) U/L Albumin 3.6 2.7 L (3.5-5.0) g/dL Urine 05/05/24 Range/Units 14:12 Urine Color Yellow Urine Appearance Clear Urine pH 6.0 (5.0-9.0) Ur Specific [place] 1.015 (1.005-1.025) Urine Protein Negative (Neg-Trace) mg/dL Urine Glucose (UA) Negative (Negative) mg/dL Head CT revealed moderate to severe diffuse cerebral atrophy and moderately severe chronic ischemic disease of brain. CTA revealed moderate basilar artery stenosis. Assessment and Plan (1) Acute alteration in mental status: Status: Acute 89 years old woman who has underlying multifactorial (degenerative +vascular) probably moderate to severe dementia came to hospital after she was found unresponsive. Examination revealed minimal responsiveness to pain and left gaze deviation. Etiology could be epileptic encephalopathy versus brainstem infarct from basilar artery disease. Without EEG an MRI neither of these 2 entities can be confirmed. My recommendation for today is to give her a g of levetiracetam to see if that would help and obtain an EEG and noncontrast MRI tomorrow. Procedures Date of Service Date of Service: 05/06/24
[2024-05-06] MEDS: cefTRIAXone sodium 1 GM VIAL IVPUSH (10:09)
[2024-05-06] MEDS: 0.9 % Sodium Chloride 1,000 ML 80 ML IVCONT ×2 (11:04→21:34)
[2024-05-06] MEDS: levETIRAcetam in NaCl (iso-os) 1,000 MG/100 ML PIGGYBACK 400 MG IV (11:09)
[2024-05-06] MEDS: Acyclovir Sodium 600 MG in 0.9 % Sodium Chloride 100 ML 112 MG IV ×2 (11:33→22:26)
--- NOTE | 2024-05-06 11:34 | HO.PM.IMPN ---
Subjective Subjective Date of Service: 05/06/24 Interval History: Seen and evaluated this morning Obtunded with no significant response No fever reported overnight or abnormal movements No other events Review of Systems Review of Systems: Yes Unobtainable due to mental status Physical Exam Vital Signs: Vital Signs: Last Vital Signs Temp 97.4 F 05/06/24 08:00 Pulse 66 05/06/24 08:00 Resp 20 05/06/24 08:00 BP 154/69 H 05/06/24 08:00 Pulse Ox 96 05/06/24 08:00 O2 Del Method Room Air 05/06/24 08:00 BMI result Body Mass Index 22.7 Const: Other: Constitutional : obtunded does not look in distress Neck : Normal inspection, Supple Cardiovascular : RRR, no JVP, no lower extremity edema Respiratory : good bilateral air entry, no crackles Gastrointestinal: soft, lax, Normal bowel sounds Skin : Warm, Dry Neurological : minimally responsive to pain, nonresponsive to verbal stimuli. eyes shut close and resist opening them, deviated to left side, mild right sided facial flatness, move all extremities Objective Data Active Medications Aspirin (Aspirin 300 Mg Supp.Rect) 300 mg MD DAILY [facility] Last Admin: 05/06/24 08:46 Dose: 300 mg Documented By: UNRULY Ceftriaxone Sodium (Ceftriaxone Sodium 1 Gm Vial) 1 gm IVPUSH Q24H [facility] Last Admin: 05/06/24 10:09 Dose: 1 gm Documented By: UNRULY Heparin Sodium (Porcine) (Heparin Sodium,Porcine 5,000 Unit/Ml Vial) 5,000 unit SUBCUT Q12H [facility] Last Admin: 05/06/24 08:46 Dose: 5,000 unit Documented By: UNRULY Acyclovir Sodium 600 mg/ (Sodium Chloride) 112 mls @ 112 mls/hr IV Q12H [facility] Last Admin: 05/06/24 11:33 Dose: 112 mls/hr Documented By: KAKhadijah Sodium Chloride (Ns) 1,000 mls @ 80 mls/hr IVCONT .[id number] [facility] Last Admin: 05/06/24 11:04 Dose: 80 mls/hr Documented By: UNRULY Levetiracetam (Keppra) 500 mg in 100 mls @ 400 mls/hr IV BID [facility] Sodium Chloride (0.9 % Sodium Chloride Flush 3 Ml Syringe) 3 ml IVFLUSH QSHIFT [facility] Last Admin: 05/06/24 08:47 Dose: 3 ml Documented By: ROBYNING Labs 05/06/24 06:24 05/06/24 06:24 Labs: Laboratory Results - last 24 hr 05/05/24 05/05/24 05/05/24 13:31 13:32 13:44 MCV 91.0 MCH 30.0 MCHC 32.9 RDW 13.4 Plt Count 453 H D MPV 9.8 Immature Gran % (Auto) 1.2 H Neut % (Auto) 69.6 Lymph % (Auto) 19.0 L [place] % (Auto) 9.8 Eos % (Auto) 0.2 Baso % (Auto) 0.2 Lymph # (Auto) 1.7 [place] # (Auto) 0.9 Eos # (Auto) 0.0 Baso # (Auto) 0.0 Abs Immat Gran (auto) 0.11 H Absolute Neuts (auto) 6.2 Absolute Nucleated RBC 0.000 Nucleated RBC % (auto) 0.0 PT 13.6 H Whole Blood PT 13.7 H INR 1.2 H Whole Blood INR 1.1 VBG pH VBG pCO2 VBG pO2 VBG HCO3 VBG O2 Saturation VBG Base Excess Anion Gap 16 Estim Creat Clear Calc 35.3 Estimated GFR 56 POC Glucose 100 Random Glucose 113 Lactic Acid 2.5 H* Lactic Acid F/U @ 2Hr Lactic Acid F/U @ 4Hr Calcium 9.5 Total Bilirubin 0.5 Direct Bilirubin 0.2 AST 28 ALT 39 H Alkaline Phosphatase 103 Ammonia Troponin I High Sens 11.5 B-Natriuretic Peptide 244 H Total Protein 7.2 Albumin 3.6 Lipase 61 TSH Hold Yellow Top Urine Color Urine Appearance Urine pH Ur Specific [place] Urine Protein Urine Glucose (UA) Urine Ketones Urine Blood Urine Nitrite Ur Leukocyte Esterase Urine Opiates Screen Ur Buprenorphine Scrn Ur Oxycodone Screen Urine Methadone Screen Urine Fentanyl Screen Ur Barbiturates Screen Ur Phencyclidine Scrn Ur Amphetamines Screen U Benzodiazepines Scrn Urine Cocaine Screen U Marijuana (THC) Screen Influenza Type A (PCR) NEGATIVE Influenza Type B (PCR) NEGATIVE RSV RNA Qual (PCR) NEGATIVE SARS-CoV-2 RNA (RT-PCR) NEGATIVE 05/05/24 05/05/24 05/05/24 14:12 16:16 17:09 MCV MCH MCHC RDW Plt Count MPV Immature Gran % (Auto) Neut % (Auto) Lymph % (Auto) [place] % (Auto) Eos % (Auto) Baso % (Auto) Lymph # (Auto) [place] # (Auto) Eos # (Auto) Baso # (Auto) Abs Immat Gran (auto) Absolute Neuts (auto) Absolute Nucleated RBC Nucleated RBC % (auto) PT Whole Blood PT INR Whole Blood INR VBG pH 7.42 VBG pCO2 37 VBG pO2 42 VBG HCO3 24 VBG O2 Saturation 66.0 VBG Base Excess 0.2 Anion Gap Estim Creat Clear Calc Estimated GFR POC Glucose Random Glucose Lactic Acid Lactic Acid F/U @ 2Hr 2.2 H* Lactic Acid F/U @ 4Hr Calcium Total Bilirubin Direct Bilirubin AST ALT Alkaline Phosphatase Ammonia Troponin I High Sens B-Natriuretic Peptide Total Protein Albumin Lipase TSH Hold Yellow Top Urine Color Yellow Urine Appearance Clear Urine pH 6.0 Ur Specific [place] 1.015 Urine Protein Negative Urine Glucose (UA) Negative Urine Ketones Negative Urine Blood Negative Urine Nitrite Negative Ur Leukocyte Esterase Negative Urine Opiates Screen Not Detected Ur Buprenorphine Scrn Not Detected Ur Oxycodone Screen Not Detected Urine Methadone Screen Not Detected Urine Fentanyl Screen Not Detected Ur Barbiturates Screen Not Detected Ur Phencyclidine Scrn Not Detected Ur Amphetamines Screen Not Detected U Benzodiazepines Scrn Not Detected Urine Cocaine Screen Not Detected U Marijuana (THC) Screen Not Detected Influenza Type A (PCR) Influenza Type B (PCR) RSV RNA Qual (PCR) SARS-CoV-2 RNA (RT-PCR) 05/05/24 05/05/24 05/06/24 18:37 18:43 06:24 MCV 92.7 MCH 29.8 MCHC 32.2 RDW 13.7 Plt Count 336 D MPV 10.3 Immature Gran % (Auto) 1.0 H Neut % (Auto) 54.5 Lymph % (Auto) 29.6 [place] % (Auto) 12.7 H Eos % (Auto) 1.9 Baso % (Auto) 0.3 Lymph # (Auto) 1.7 [place] # (Auto) 0.7 Eos # (Auto) 0.1 Baso # (Auto) 0.0 Abs Immat Gran (auto) 0.06 H Absolute Neuts (auto) 3.1 Absolute Nucleated RBC 0.000 Nucleated RBC % (auto) 0.0 PT Whole Blood PT INR Whole Blood INR VBG pH VBG pCO2 VBG pO2 VBG HCO3 VBG O2 Saturation VBG Base Excess Anion Gap 9 L Estim Creat Clear Calc 49.3 Estimated GFR > 60 POC Glucose Random Glucose 78 Lactic Acid Lactic Acid F/U @ 2Hr Lactic Acid F/U @ 4Hr 1.2 Calcium 8.0 L D Total Bilirubin 0.4 Direct Bilirubin AST 22 ALT 27 Alkaline Phosphatase 78 Ammonia 27 Troponin I High Sens B-Natriuretic Peptide Total Protein 5.3 L Albumin 2.7 L Lipase TSH 0.81 Hold Yellow Top See Note Urine Color Urine Appearance Urine pH Ur Specific [place] Urine Protein Urine Glucose (UA) Urine Ketones Urine Blood Urine Nitrite Ur Leukocyte Esterase Urine Opiates Screen Ur Buprenorphine Scrn Ur Oxycodone Screen Urine Methadone Screen Urine Fentanyl Screen Ur Barbiturates Screen Ur Phencyclidine Scrn Ur Amphetamines Screen U Benzodiazepines Scrn Urine Cocaine Screen U Marijuana (THC) Screen Influenza Type A (PCR) Influenza Type B (PCR) RSV RNA Qual (PCR) SARS-CoV-2 RNA (RT-PCR) Assessment and Plan (1) Acute alteration in mental status: Status: Acute (2) Acute lactic acidosis: Status: Acute Plan Galina Stroud is 89 y/o woman admitted with altered mentation Altered mentation, Toxic? Metabolic? encephalopathy, Acute Unclear etiology as primary images are negative for any acute findings Start Keppra for possible Seizure ? Check EEG Start Ceftriaxone empirically Start Acyclovir and get LP to rule out encephalitis Brain MRI to rule out any brain stem stroke Aspiration precaution Gentle IV fluids monitor neurological status Hold melatonin, mirtazapine and oxycodone Neurology input appreciated, Acute Lactic acidosis, mild resolved; cause is unclear No evidence of acute infection Blood cultures obtained , on empirical Abx Distal basilar artery moderate stenosis. Aspirin 300 mg MD X1. Check Brain MRI and TTE. Essential hypertension. Continue metoprolol and lisinopril when able. Recent left femor fracture surgery (Apr 25, 2024). Surgical wound is clean. heparin for DVT PPx Glaucoma. Continue Timolol and Vyzulta drops. DVT prophylaxis: Heparin subcut Code status: DNR/DNI (BiPAP is okay). Patient will need hospitalization for at least overnight for decreased level of consciousness of unclear etiology. She will need close monitoring of vital signs, neurological status, blood workup pending LP, EEG and MRI Quality Stroke Does the patient have a stroke diagnosis?: No VTE Prior VTE?: No VTE Risk Level:: Medical - moderate - high VTE Device Contraindication: Treatment Not Indicated VTE Drug Contraindication: N/A - Med Ordered
--- NOTE | 2024-05-06 13:02 | MHC.CM.PN ---
IMM 05/06/24, signed by HCP / daughter in law, Selin. HCP form is on file. Pt is non responsive at this time. She resides at [facility]. The plan is for her to return there at DC via BLS. CM to follow for DC needs.
--- NOTE | 2024-05-06 18:11 | PC.NURSE ---
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 No void this shift. Bladder scanned at 3pm for 306cc. Dr. Garduno ordered farrell cath. Inserted @ 1800.
[2024-05-06] MEDS: Metoprolol Tartrate 5 MG/5 ML VIAL IVPUSH (18:16)
[2024-05-06] MEDS: levETIRAcetam in NaCl (iso-os) 500 MG/100 ML PIGGYBACK 400 MG IV (20:21)
[2024-05-06] MEDS: Labetalol HCL 100 MG/20 ML VIAL IVPUSH (22:18)
[2024-05-07] VITALS (11 sets, daily range): BP systolic 139–190; BP diastolic 56–89; PULSE 84–101; RESP 17–20; TEMP 36.1–37.4; O2SAT 94–98
--- NOTE | 2024-05-07 02:12 | PC.NURSE ---
Patient is not responding to voice, responds to light discomfort and stimuli with a grimace or slight movement. Closes her mouth when lip moisturizer applied. . She does not open her eyes and difficult to open them with fingers to assess pupils d/t squinting. Left especially difficult to assess. Left eye appears to be oscillating slightly Pupils are equal and reactive. Patient is holding her arms up to chest and close to body and resists when you attempt to straighten them. Once straightened she will occasionally leave it that way. She will use opposite arm to reach over to prevent you from straightening arm out or taking blood pressure occasionally with weakness. Her legs have tone but weak. Her right foot is adducted, left foot seems to stay straight. Skin is intact with left hip dsd. Turning and repositioning to prevent skin breakdown and for comfort. Patient is a mouth breather, mouth care administered. Blood pressure eleveated tonight, labetalol ordered and administered for b.p over 170 with good effect. SR on tele. Lara catheter in place with cloudy odorous urine, IV fluids infusing as ordered. No bowel movement tonight. Will continue to assess.
--- NOTE | 2024-05-07 07:00 | CA_ITS ---
Transthoracic Echocardiogram Patient (Last, First, Middle): Galina Stroud F Gender: Female Date of : 1935 Age: 89 Procedure Date: 05/07/2024 Procedure Type: Transthoracic Echocardiogram Location: [facility] Height: 162.56 cm Weight: 59.88 kg BSA: 1.64 m2 Heart Rate: bpm BP: 160 / 58 mmHg Content Curator: SB Referring MD: Dianna Garduno MD Symptoms: Acute stroke Study Quality: Adequate ECG Rhythm: Sinus Conclusions: - Normal left ventricular size and systolic function. The visually estimated ejection fraction is >70%. - There is moderate septal asymmetric hypertrophy. - Normal right ventricular cavity size and systolic function. - There is mild calcification of the aortic valve. - Mild pulmonary hypertension is present. - There is no dynamic left ventricular outflow tract obstruction. There is dynamic mid left ventricular obstruction. Findings Left Ventricle Normal left ventricular size and systolic function. The visually estimated ejection fraction is >70%. There is no evidence of regional wall motion abnormalities. There is no dynamic left ventricular outflow tract obstruction. There is dynamic mid left ventricular obstruction. Diastolic function is indeterminate on the basis of available data. There is moderate septal asymmetric hypertrophy. Right Ventricle Normal right ventricular cavity size and systolic function. Atria The left atrium is normal in size. The right atrium is normal in size. Aortic Valve There is a normal trileaflet aortic valve. There is mild calcification of the aortic valve. There is no aortic valve stenosis. There is no aortic valve regurgitation. Mitral Valve There is severe mitral annular calcification. There is mild mitral valve regurgitation. There is no mitral valve stenosis. Pulmonic Valve The pulmonic valve was not well visualized. Tricuspid Valve Normal tricuspid valve structure. There is mild tricuspid valve regurgitation. The right ventricular systolic pressure is 38 mmHg. Normal right atrial pressure. Mild pulmonary hypertension is present. Great Vessels All visible segments of the aorta are normal in size. Venous The inferior vena cava is normal in size and collapses greater than 50% with inspiration. Pericardium/Pleural There is no evidence of pericardial effusion. Prior Study Comparison No prior study available for comparison. Measurements 2D Linear Measurements IVSd: 1.39 0.6-0.9/0.6-1.0 cm LVIDd: 3.48 3.9-5.3/4.2-5.9 cm LVIDd Index: 2.12 2.4-3.2/2.2-3.1 cm/m2 LVIDs: 2.12 2.0-3.6 cm LVPWd: 0.73 0.7-1.1 cm Ao Root: 2.70 2.1-3.5 cm LA Diam: 4.00 2.7-3.8/3.0-4.0 cm LAIDs Index: 2.44 1.5-2.3 cm/m2 LV Mass: 138.62 67-162/88-224 g LV Mass Index: 84.52 43-95/49-115 g/m2 LVOT Diam: 1.60 3.0+(-)1.3 cm 2D Systolic Function EF 2C: 80.30 >55% Mitral Valve MV VTI: 0.38 MV Pk Jere: 1.51 MV Mn Jere: 1.13 MV Pk Grad: 9.00 MV Mn Grad: 6.00 MV Pk E: 0.89 MV PK A: 1.25 MV Decel Time: 212.00 E/A: 0.70 E'Lateral: 3.92 E'Medial: 3.92 E/E' Med: 22.80 E/E' Lat: 22.80 PHT: 62.00 MVA PHT: 3.55 MVA Continuity: 2.53 Decel Mcpherson: 4.21 Aortic Valve AoV Pk Jere: 1.97 AoV Pk Grad: 16.00 LVOT LVOT Pk Jere: 2.02 LVOT Mn Jere: 1.87 LVOT VTI: 0.47 LVOT Pk Grad: 16.00 LVOT Mn Grad: 15.00 LVOT Diam: 1.60 LVOT Area: 2.01 Diastolic Function MV Pk E: 0.89 MV Pk A: 1.25 E/A: 0.70 E'Medial: 3.92 E/E' Med: 22.80 E' Laterial: 3.92 E/E' Lat: 22.80 Right Ventricle TAPSE (mm): 23.00 TVS' Jere: 19.00 Tricuspid Valve TR Pk Jere: 2.96 TR Pk Grad: 35.00 RA Press: 3.00 RVSP: 38.00 Great Vessels Aorta Ao Root-2D: 2.70 2.0-3.7 cm Ao Asc: 2.90 2.1-3.4 cm Pulmonary Valve PV Pk Jere: 1.41 Peak PV Grad: 8.00 Updated in Other Vendor System with Status of Final Richmond Sawyer MD electronically signed on 05/07/2024 12:10:47 PM with status of Final
[2024-05-07 07:12] LABS: Hematocrit 32.7 % (37.0-47.0); Hemoglobin 10.6 g/dl (12.0-16.0); Mean Corpuscular HGB Conc 32.4 g/dl (31.0-35.0); Mean Corpuscular Hemoglobin 29.3 pg (27.0-33.0); Mean Corpuscular Volume 90.3 fL (80.0-98.0); Mean Platelet Volume 10.2 fL (9.4-12.3); Platelet Count 402 X10*3/uL (160-400); Red Blood Count 3.62 X10*6/uL (4.20-5.50); Red Cell Distribution Width 13.3 % (11.0-16.0)
[2024-05-07 07:19] LABS: Anion Gap 15 (12-20); Blood Urea Nitrogen 13 mg/dL (9-16); Calcium 7.9 mg/dL (8.4-10.2); Carbon Dioxide 19 mmol/L (22-29); Chloride 111 mmol/L (96-108); Creatinine Clr Calc Pharmacy 51.6; Estimated Glomerular Filt Rate > 60; Glucose Random 79 mg/dL (60-115); Potassium 3.6 mmol/L (3.3-5.1); Sodium 141 mmol/L (135-145)
[2024-05-07] MEDS: Aspirin 300 MG SUPP.RECT PR (08:56)
[2024-05-07] MEDS: 0.9 % Sodium Chloride Flush 3 ML SYRINGE IVFLUSH ×3 (09:19→22:14)
[2024-05-07] MEDS: levETIRAcetam in NaCl (iso-os) 500 MG/100 ML PIGGYBACK 400 MG IV ×2 (09:19→22:10)
[2024-05-07] MEDS: cefTRIAXone sodium 1 GM VIAL IVPUSH (09:31)
--- NOTE | 2024-05-07 09:52 | PM.EVENT ---
Event Note Date of Service: 05/07/24 Event Note: Order for LP reviewed. Patient admitted with AMS. Imaging reviewed with Dr. Mason. 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 Discussed with medical attending. Will hold off on LP given new findings of CVA. Fahad NEVES Interventional Radiology Time Spent With Patient Time: Total time managing care of this patient today ____ minutes.
--- NOTE | 2024-05-07 11:31 | PM.PROC ---
Brief Operative Note Date of procedure: 05/07/24 Pre-op diagnosis: AMS, CVA Post-op diagnosis: same Procedure: FL Lumbar puncture L3-4, Opening 14 cm H20 (prone). 9 cc clear csf removed and sent for analysis. No immediate complications. Anesthesia: local
--- NOTE | 2024-05-07 11:32 | P.PNIM_ITS ---
Subjective Subjective Date of Service: 05/07/24 Interval History: Seen and evaluated this morning Obtunded with no significant response , no changes in mental status since admission No fever reported overnight or abnormal movements No other events Review of Systems Review of Systems: Yes all other systems are reviewed and are negative Physical Exam 2 Vital Signs: Vital Signs: Last Vital Signs Temp 98.1 F 05/07/24 08:00 Pulse 84 05/07/24 09:32 Resp 20 05/07/24 08:00 BP 139/65 05/07/24 09:32 Pulse Ox 96 05/07/24 08:00 O2 Del Method Room Air 05/07/24 08:00 BMI result Body Mass Index 22.7 Const: Other: Constitutional : obtunded , does not look in distress Neck : Normal inspection, Supple Cardiovascular : RRR, no JVP, no lower extremity edema Respiratory : good bilateral air entry, no crackles Gastrointestinal: soft, lax, Normal bowel sounds Skin : Warm, Dry Neurological : obtunded, minimally responsive to pain w mild withdraw, nonresponsive to verbal stimuli. eyes shut close and resist opening them, no significant deviation today, mild right sided facial flatness, move all extremities Objective Data Active Medications Aspirin (Aspirin 300 Mg Supp.Rect) 300 mg AR DAILY [facility] Last Admin: 05/07/24 08:56 Dose: 300 mg Documented By: AMINTA Ceftriaxone Sodium (Ceftriaxone Sodium 1 Gm Vial) 1 gm IVPUSH Q24H [facility] Last Admin: 05/07/24 09:31 Dose: 1 gm Documented By: AMINTA Heparin Sodium (Porcine) (Heparin Sodium,Porcine 5,000 Unit/Ml Vial) 5,000 unit SUBCUT Q12H [facility] Last Admin: 05/07/24 09:33 Dose: Not Given Documented By: AMINTA Non-Admin Reason: Physician Held Med Acyclovir Sodium 600 mg/ (Sodium Chloride) 112 mls @ 112 mls/hr IV Q12H [facility] Last Infusion: 05/06/24 23:36 Dose: Infused Documented By: SHAQUILLE Sodium Chloride (Ns) 1,000 mls @ 80 mls/hr IVCONT .[id number] [facility] Last Admin: 05/06/24 21:34 Dose: 80 mls/hr Documented By: SHAQUILLE Levetiracetam (Keppra) 500 mg in 100 mls @ 400 mls/hr IV BID [facility] Last Admin: 05/07/24 09:19 Dose: 400 mls/hr Documented By: AMINTA Labetalol HCl (Labetalol Hcl 100 Mg/20 Ml Vial) 5 mg IVPUSH Q4H PRN PRN Reason: SBP > 170 Last Admin: 05/06/24 22:18 Dose: 5 mg Documented By: SHAQUILLE Sodium Chloride (0.9 % Sodium Chloride Flush 3 Ml Syringe) 3 ml IVFLUSH QSHIFT [facility] Last Admin: 05/07/24 09:19 Dose: 3 ml Documented By: AMINTA Labs 05/07/24 06:24 05/07/24 06:24 Labs: Laboratory Results - last 24 hr 05/07/24 06:24 MCV 90.3 MCH 29.3 MCHC 32.4 RDW 13.3 Plt Count 402 H MPV 10.2 Absolute Nucleated RBC 0.000 Nucleated RBC % (auto) 0.0 Anion Gap 15 Estim Creat Clear Calc 51.6 Estimated GFR > 60 Random Glucose 79 Calcium 7.9 L Microbiology Microbiology Results: Microbiology 05/05/24 14:02 Blood Culture - Preliminary Blood - Venous No growth after 24 hours. 05/05/24 14:02 Blood Culture - Preliminary Blood - Venous No growth after 24 hours. Assessment and Plan (1) Acute lactic acidosis: Status: Acute (2) Acute alteration in mental status: Status: Acute (3) Obtunded: Status: Acute Plan Galina Stroud is 89 y/o woman admitted with altered mentation Altered mentation, Toxic? Metabolic? encephalopathy, Acute Unclear etiology as primary images are negative for any acute findings MRI showing mixed picture with possible stroke, encephalitis ? Mets ? To check Contrasted Brain MRI Pending LP Start Keppra for possible Seizure ? Check EEG Start Ceftriaxone empirically (05/06) Start Acyclovir and get LP to rule out encephalitis (05/06) Aspiration precaution Gentle IV fluids monitor neurological status Hold melatonin, mirtazapine and oxycodone Neurology input appreciated, Acute Lactic acidosis, mild resolved; cause is unclear No evidence of acute infection Blood cultures obtained , on empirical Abx Distal basilar artery moderate stenosis. Aspirin 300 mg AR X1. Check Brain MRI and TTE. Essential hypertension. Continue metoprolol and lisinopril when able. Recent left femor fracture surgery (Apr 25, 2024). Surgical wound is clean. heparin for DVT PPx Glaucoma. Continue Timolol and Vyzulta drops. DVT prophylaxis: Heparin subcut Code status: DNR/DNI (BiPAP is okay). Patient will need hospitalization for at least overnight for decreased level of consciousness of unclear etiology. She will need close monitoring of vital signs, neurological status, blood workup pending LP, EEG and MRI Quality Stroke Does the patient have a stroke diagnosis?: No VTE Prior VTE?: No VTE Risk Level:: Medical - moderate - high VTE Device Contraindication: Treatment Not Indicated VTE Drug Contraindication: N/A - Med Ordered
[2024-05-07] MEDS: gadobutroL 7.5 ML VIAL IVPUSH (12:24)
[2024-05-07 12:35] LABS: Glucose CSF 44 mg/dL; Total Protein CSF 30.7 mg/dL (15-45)
[2024-05-07 12:42] LABS: CSF Appearance Clear, Colorless; CSF Tube # 3
[2024-05-07 13:02] LABS: Appearance CSF CLEAR; CSF Tube # 1; Color CSF COLORLESS; Red Blood Cell CSF 104 MM*3; White Blood Cell CSF 2 MM*3
[2024-05-07 13:03] LABS: CSF Monos 14 %; Lymphocytes CSF 77 %; Neutrophils CSF 9 %
[2024-05-07 13:08] LABS: Appearance CSF CLEAR; CSF Tube # 4; Color CSF COLORLESS; Red Blood Cell CSF 9 MM*3; White Blood Cell CSF 1 MM*3
[2024-05-07 13:09] LABS: CSF Monos 16 %; Lymphocytes CSF 82 %; Neutrophils CSF 2 %
[2024-05-07] MEDS: Acyclovir Sodium 600 MG in 0.9 % Sodium Chloride 100 ML 112 MG IV ×2 (13:29→22:43)
[2024-05-07] MEDS: 0.9 % Sodium Chloride 1,000 ML 80 ML IVCONT (13:30)
[2024-05-07] MEDS: Labetalol HCL 100 MG/20 ML VIAL IVPUSH ×2 (13:41→15:25)
[2024-05-07 13:48] LABS: Cryptococcus neoformans/gattii Not Detected (Not Detect.); Enterovirus Not Detected (Not Detect.); Escherichia coli K1 Not Detected (Not Detect.); Haemophilus influenzae Not Detected (Not Detect.); Herpes simplex virus 1 Not Detected (Not Detect.); Herpes simplex virus 2 Not Detected (Not Detect.); Human herpesvirus 6 Not Detected (Not Detect.); Human parechovirus Not Detected (Not Detect.); Listeria monocytogenes Not Detected (Not Detect.); Neisseria meningitidis Not Detected (Not Detect.); Streptococcus agalactiae Not Detected (Not Detect.); Streptococcus pneumoniae Not Detected (Not Detect.); Varicella zoster virus Not Detected (Not Detect.)
[2024-05-07 14:31] LABS: Lactate Dehydrogenase 235 U/L (122-220)
[2024-05-07] MEDS: Metoprolol Tartrate 5 MG/5 ML VIAL IVPUSH ×2 (16:21→22:33)
[2024-05-07 18:08] LABS: Prolactin 6.1 ng/mL
[2024-05-08] MEDS: 0.9 % Sodium Chloride 1,000 ML 80 ML IVCONT (03:12)
[2024-05-08] MEDS: Metoprolol Tartrate 5 MG/5 ML VIAL IVPUSH ×2 (04:58→10:28)
[2024-05-08 04:59] VITALS: BP 160/62; PULSE 86; RESP 18; O2SAT 94
[2024-05-08 08:00] VITALS: BP 192/90; PULSE 92; RESP 20; TEMP 36.8; O2SAT 97
[2024-05-08] MEDS: 0.9 % Sodium Chloride Flush 3 ML SYRINGE IVFLUSH (10:25)
[2024-05-08] MEDS: levETIRAcetam in NaCl (iso-os) 500 MG/100 ML PIGGYBACK 400 MG IV (10:28)
--- NOTE | 2024-05-08 11:35 | HO.PM.IMPN ---
Subjective Subjective Date of Service: 05/08/24 Review of Systems Review of Systems: Yes Unobtainable due to mental status Physical Exam Vital Signs: Vital Signs: Last Vital Signs Temp 98.3 F 05/08/24 08:00 Pulse 92 05/08/24 08:00 Resp 20 05/08/24 08:00 BP 192/90 H 05/08/24 08:00 Pulse Ox 97 05/08/24 08:00 O2 Del Method Room Air 05/08/24 08:00 BMI result Body Mass Index 22.7 Obtunded, not responsive to stimuli, no acute distress Objective Data Active Medications Sodium Chloride (0.9 % Sodium Chloride Flush 3 Ml Syringe) [facility] Admin: 05/08/24 10:25 Dose: 3 ml Documented By: LESLIE Labs 05/07/24 06:24 05/07/24 06:24 Labs: Laboratory Results - last 24 hr 05/05/24 05/07/24 05/07/24 18:43 06:24 11:10 Anion Gap 15 Estim Creat Clear Calc 51.6 Estimated GFR > 60 Random Glucose 79 Calcium 7.9 L Total Bilirubin Cancelled AST Cancelled ALT Cancelled Alkaline Phosphatase Cancelled Lactate Dehydrogenase 235 H C-Reactive Protein 2.00 H Total Protein Cancelled Albumin Cancelled Prolactin 6.1 CSF Tube Number 3 CSF Volume CSF Appearance CSF Color CSF WBC CSF RBC CSF Neutrophils CSF Lymphocytes CSF Monocytes % CSF Appearance (b) CSF Glucose CSF Total Protein CSF C.neoform/gat PCR CSF CMV DNA (PCR) CSF Enterovirus (PCR) CSF E. coli K1 (PCR) CSF H. influenzae (PCR) CSF HSV I (PCR) CSF HSV II (PCR) CSF HHV 6 (PCR) CSF L.monocytogenes PCR CSF N. meningitidis PCR CSF Parechovirus (PCR) CSF S. agalactiae (PCR) CSF S. pneumoniae (PCR) CSF VZV (PCR) 05/07/24 05/07/24 05/07/24 11:10 11:10 11:10 Anion Gap Estim Creat Clear Calc Estimated GFR Random Glucose Calcium Total Bilirubin AST ALT Alkaline Phosphatase Lactate Dehydrogenase C-Reactive Protein Total Protein Albumin Prolactin CSF Tube Number 1 4 CSF Volume 2.0 2.0 CSF Appearance CLEAR CSF Color CSF WBC CSF RBC CSF Neutrophils CSF Lymphocytes CSF Monocytes % CSF Appearance (b) CSF Glucose CSF Total Protein CSF C.neoform/gat PCR CSF CMV DNA (PCR) CSF Enterovirus (PCR) CSF E. coli K1 (PCR) CSF H. influenzae (PCR) CSF HSV I (PCR) CSF HSV II (PCR) CSF HHV 6 (PCR) CSF L.monocytogenes PCR CSF N. meningitidis PCR CSF Parechovirus (PCR) CSF S. agalactiae (PCR) CSF S. pneumoniae (PCR) CSF VZV (PCR) 05/07/24 05/07/24 05/07/24 11:10 11:10 11:10 Anion Gap Estim Creat Clear Calc Estimated GFR Random Glucose Calcium Total Bilirubin AST ALT Alkaline Phosphatase Lactate Dehydrogenase C-Reactive Protein Total Protein Albumin Prolactin CSF Tube Number CSF Volume CSF Appearance CLEAR CSF Color COLORLESS COLORLESS CSF WBC 2 1 CSF RBC 104 CSF Neutrophils CSF Lymphocytes CSF Monocytes % CSF Appearance (b) CSF Glucose CSF Total Protein CSF C.neoform/gat PCR CSF CMV DNA (PCR) CSF Enterovirus (PCR) CSF E. coli K1 (PCR) CSF H. influenzae (PCR) CSF HSV I (PCR) CSF HSV II (PCR) CSF HHV 6 (PCR) CSF L.monocytogenes PCR CSF N. meningitidis PCR CSF Parechovirus (PCR) CSF S. agalactiae (PCR) CSF S. pneumoniae (PCR) CSF VZV (PCR) 05/07/24 05/07/24 05/07/24 11:10 11:10 11:10 Anion Gap Estim Creat Clear Calc Estimated GFR Random Glucose Calcium Total Bilirubin AST ALT Alkaline Phosphatase Lactate Dehydrogenase C-Reactive Protein Total Protein Albumin Prolactin CSF Tube Number CSF Volume CSF Appearance CSF Color CSF WBC CSF RBC 9 CSF Neutrophils 9 2 CSF Lymphocytes 77 82 CSF Monocytes % 14 CSF Appearance (b) CSF Glucose CSF Total Protein CSF C.neoform/gat PCR CSF CMV DNA (PCR) CSF Enterovirus (PCR) CSF E. coli K1 (PCR) CSF H. influenzae (PCR) CSF HSV I (PCR) CSF HSV II (PCR) CSF HHV 6 (PCR) CSF L.monocytogenes PCR CSF N. meningitidis PCR CSF Parechovirus (PCR) CSF S. agalactiae (PCR) CSF S. pneumoniae (PCR) CSF VZV (PCR) 05/07/24 11:10 Anion Gap Estim Creat Clear Calc Estimated GFR Random Glucose Calcium Total Bilirubin AST ALT Alkaline Phosphatase Lactate Dehydrogenase C-Reactive Protein Total Protein Albumin Prolactin CSF Tube Number CSF Volume CSF Appearance CSF Color CSF WBC CSF RBC CSF Neutrophils CSF Lymphocytes CSF Monocytes % 16 CSF Appearance (b) Clear, Colorless CSF Glucose 44 CSF Total Protein 30.7 CSF C.neoform/gat PCR Not Detected CSF CMV DNA (PCR) Not Detected CSF Enterovirus (PCR) Not Detected CSF E. coli K1 (PCR) Not Detected CSF H. influenzae (PCR) Not Detected CSF HSV I (PCR) Not Detected CSF HSV II (PCR) Not Detected CSF HHV 6 (PCR) Not Detected CSF L.monocytogenes PCR Not Detected CSF N. meningitidis PCR Not Detected CSF Parechovirus (PCR) Not Detected CSF S. agalactiae (PCR) Not Detected CSF S. pneumoniae (PCR) Not Detected CSF VZV (PCR) Not Detected Microbiology Microbiology Results: Microbiology 05/07/24 11:10 Gram Stain - Final Cerebrospinal Fluid CSF Examination - Final Fluid Description - Final CSF Culture - Preliminary No growth after 1 day 05/05/24 14:02 Blood Culture - Preliminary Blood - Venous No growth after 48 hours. 05/05/24 14:02 Blood Culture - Preliminary Blood - Venous No growth after 48 hours. Assessment and Plan (1) Acute lactic acidosis: Status: Acute (2) Acute alteration in mental status: Status: Acute (3) Obtunded: Status: Acute Plan 89F PMH dementia, essential hypertension, recent left femoral fracture repair, major depressive disorder and adjustment disorder presented with AMS Acute toxic metabolic encephalopathy due to acute CVA No significant improvement, still obtunded, unable to take p.o. Discussed with patient's healthcare proxy, her sister Selin, plan to transitioned to comfort measures only/end of life care Will discontinue disease directed treatments, patient currently not requiring anything for comfort No DVT prophylaxis due to [employer] reason for continued hospitalization: Dispo planning Quality Stroke Does the patient have a stroke diagnosis?: No VTE Prior VTE?: No VTE Risk Level:: Medical - moderate - high VTE Device Contraindication: Treatment Not Indicated VTE Drug Contraindication: N/A - Med Ordered
[2024-05-08 12:00] VITALS: RESP 20
--- NOTE | 2024-05-08 12:31 | MHC.CM.PN ---
Patient is now CIT[employer]EN[employer]IP [employer]. CM has reached out to [facility] to inform them of this decision. CM will follow.
--- NOTE | 2024-05-08 12:50 | MHC.CM.PN ---
Per MD, Patient is medically cleared for dc to return to LTC @ [facility], on [address], today at 4:30PM, via [facility].KANDACE spoke with Sister/HCP/Selin @ [phone] and informed her of the dc plan.
--- NOTE | 2024-05-08 12:51 | P.DS_ITS ---
DS: Providers Provider Date of Service: 05/08/24 Date of admission: 05/05/24 19:40 Date of discharge: 05/08/24 Primary care physician: Jonel Contreras MD Consults: 05/05/24 20:24 Consult to Neurology Routine Consulting Provider: [facility] Reason for consultation: Decreased level of consciousness Has provider been notified: No DS: Diagnosis Discharge Diagnosis (1) Acute lactic acidosis: Status: Acute (2) Acute alteration in mental status: Status: Acute (3) Obtunded: Status: Acute DS: Summary Hospital Course Hospital Course: from initial hpi: 89 years old woman with past medical history significant for dementia, essential hypertension, recent left femoral fracture repair, major depressive disorder and adjustment disorder was brought to the ED via EMS after she was found to be unresponsive. HPI was obtained from ED provider who stated that patient had breakfast this morning has been unresponsive since then. Patient has been taking oxycodone for pain. Narcan has been given twice without response. In the ED, she was found to have normal vital signs. Blood workup showed no leukocytosis. Hemoglobin is 13.0 and platelets 453. There is no bandemia. INR is 1.2. VBG showed no respiratory acidosis. Lactic acid was initially 2.5 and now is normal. TSH is normal. There are no electrolyte imbalances. Creatinine 0.95 and BUN 22. Ammonia is normal. Troponin is 11.5. LFTs are unremarkable except for slight elevation on ALT, 39. Urinalysis is normal. Toxicology is negative. Viral testing for COVID-19, influenza and RSV is negative. CXR is negative. Head CT scan without contrast showed no acute intracranial pathology. 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 Home medications list according to [facility]: Acetaminophen, artificial tears, bisacodyl, enemas, enoxaparin, furosemide, lisinopril, melatonin, metoprolol, mirtazapine, under certain, oxycodone, KCl 20 mEq, probiotics, senna, timolol drops and Vyzulta drops. ED tx: Narcan 0.6 mg IV (total), NS 1 L bolus. hospital course: Patient was admitted for acute toxic metabolic encephalopathy initially worked up to rule out encephalitis, LP was unremarkable, treated empirically with ceftriaxone acyclovir as well as empirically with Keppra for possible seizures., however, MRI revealed acute CVA is likely etiology. Patient's mental status did not improve for several days. After discussion with healthcare proxy decision made to transitioned to comfort measures only. Disease directed treatments were discontinued and patient will be discharged to intermediate facility for end of life care. Time Attestation Discharge Coordination Time (in mins): 37 Quality: Safe Use of Opioids Does Pt have an Active Cancer Diagnosis on the Problem List?: No Quality: Stroke Does the patient have a stroke diagnosis?: Yes Reason for No Anti-thrombotic at DC: Drug treatment not indicated Reason for No Anticoagulant at DC: Drug treatment not indicated Reason Not Initiating IV-Tpa: Drug treatment not indicated Reason for No Anti-thrombotic by Day Two: Drug treatment not indicated Reason for No Statin at DC: Drug treatment not indicated Physical Exam Vital Signs: Vital Signs: Last Vital Signs Temp 98.3 F 05/08/24 08:00 Pulse 92 05/08/24 08:00 Resp 20 05/08/24 12:00 BP 192/90 H 05/08/24 08:00 Pulse Ox 97 05/08/24 08:00 O2 Del Method Room Air 05/08/24 08:00 BMI result Body Mass Index 22.7 Obtunded, not responsive to stimuli, no acute distress DS: Data Data Completed and Pending Completed studies during hospitalization [Text1]: Procedures Replacement of Left Hip Joint, Femoral Surface with Synthetic Substitute, Uncemented, Open Approach (04/25/24) Replacement of Right Hip Joint, Femoral Surface with Synthetic Substitute, Uncemented, Open Approach (11/11/21) Labs on day of discharge: Laboratory Results - last 24 hr 05/05/24 05/07/24 05/07/24 18:43 06:24 11:10 Sodium 141 Potassium 3.6 Chloride 111 H Carbon Dioxide 19 L Anion Gap 15 BUN 13 Creatinine 0.65 Estim Creat Clear Calc 51.6 Estimated GFR > 60 Random Glucose 79 Calcium 7.9 L Total Bilirubin Cancelled AST Cancelled ALT Cancelled Alkaline Phosphatase Cancelled Lactate Dehydrogenase 235 H C-Reactive Protein 2.00 H Total Protein Cancelled Albumin Cancelled Prolactin 6.1 CSF Tube Number 1 CSF Volume CSF Appearance CSF Color CSF WBC CSF RBC CSF Neutrophils CSF Lymphocytes CSF Monocytes % CSF C.neoform/gat PCR CSF CMV DNA (PCR) CSF Enterovirus (PCR) CSF E. coli K1 (PCR) CSF H. influenzae (PCR) CSF HSV I (PCR) CSF HSV II (PCR) CSF HHV 6 (PCR) CSF L.monocytogenes PCR CSF N. meningitidis PCR CSF Parechovirus (PCR) CSF S. agalactiae (PCR) CSF S. pneumoniae (PCR) CSF VZV (PCR) 05/07/24 05/07/24 05/07/24 11:10 11:10 11:10 Sodium Potassium Chloride Carbon Dioxide Anion Gap BUN Creatinine Estim Creat Clear Calc Estimated GFR Random Glucose Calcium Total Bilirubin AST ALT Alkaline Phosphatase Lactate Dehydrogenase C-Reactive Protein Total Protein Albumin Prolactin CSF Tube Number 4 CSF Volume 2.0 2.0 CSF Appearance CLEAR CLEAR CSF Color COLORLESS CSF WBC CSF RBC CSF Neutrophils CSF Lymphocytes CSF Monocytes % CSF C.neoform/gat PCR CSF CMV DNA (PCR) CSF Enterovirus (PCR) CSF E. coli K1 (PCR) CSF H. influenzae (PCR) CSF HSV I (PCR) CSF HSV II (PCR) CSF HHV 6 (PCR) CSF L.monocytogenes PCR CSF N. meningitidis PCR CSF Parechovirus (PCR) CSF S. agalactiae (PCR) CSF S. pneumoniae (PCR) CSF VZV (PCR) 05/07/24 05/07/24 05/07/24 11:10 11:10 11:10 Sodium Potassium Chloride Carbon Dioxide Anion Gap BUN Creatinine Estim Creat Clear Calc Estimated GFR Random Glucose Calcium Total Bilirubin AST ALT Alkaline Phosphatase Lactate Dehydrogenase C-Reactive Protein Total Protein Albumin Prolactin CSF Tube Number CSF Volume CSF Appearance CSF Color COLORLESS CSF WBC 2 1 CSF RBC 104 9 CSF Neutrophils 9 CSF Lymphocytes CSF Monocytes % CSF C.neoform/gat PCR CSF CMV DNA (PCR) CSF Enterovirus (PCR) CSF E. coli K1 (PCR) CSF H. influenzae (PCR) CSF HSV I (PCR) CSF HSV II (PCR) CSF HHV 6 (PCR) CSF L.monocytogenes PCR CSF N. meningitidis PCR CSF Parechovirus (PCR) CSF S. agalactiae (PCR) CSF S. pneumoniae (PCR) CSF VZV (PCR) 05/07/24 05/07/24 05/07/24 11:10 11:10 11:10 Sodium Potassium Chloride Carbon Dioxide Anion Gap BUN Creatinine Estim Creat Clear Calc Estimated GFR Random Glucose Calcium Total Bilirubin AST ALT Alkaline Phosphatase Lactate Dehydrogenase C-Reactive Protein Total Protein Albumin Prolactin CSF Tube Number CSF Volume CSF Appearance CSF Color CSF WBC CSF RBC CSF Neutrophils 2 CSF Lymphocytes 77 82 CSF Monocytes % 14 16 CSF C.neoform/gat PCR Not Detected CSF CMV DNA (PCR) Not Detected CSF Enterovirus (PCR) Not Detected CSF E. coli K1 (PCR) Not Detected CSF H. influenzae (PCR) Not Detected CSF HSV I (PCR) Not Detected CSF HSV II (PCR) Not Detected CSF HHV 6 (PCR) Not Detected CSF L.monocytogenes PCR Not Detected CSF N. meningitidis PCR Not Detected CSF Parechovirus (PCR) Not Detected CSF S. agalactiae (PCR) Not Detected CSF S. pneumoniae (PCR) Not Detected CSF VZV (PCR) Not Detected Preliminary micro results at discharge 05/07/24 11:10 CSF Culture - Preliminary Cerebrospinal Fluid No growth after 1 day 05/05/24 14:02 Blood Culture - Preliminary Blood - Venous No growth after 48 hours. 05/05/24 14:02 Blood Culture - Preliminary Blood - Venous No growth after 48 hours. Discharge Plan Discharge Anticipated Discharge Date/Time: 05/08/24 12:49 Patient Disposition: Xfer [facility] Discharge Diagnosis: cva Referrals: [facility] [Outside] - 1 Week Jonel Contreras MD [Primary Care Provider] - 1 Week Discharge Medications: Continued Vyzulta 0.024 % drops 1 drp ophthalmic (eye) BEDTIME timolol maleate 0.25 % drops 1 drp ophthalmic (eye) DAILY sennosides [senna] 8.6 mg Tablet 17.2 mg PO DAILY PRN (Reason: Bowel Management) ondansetron HCl 4 mg Tablet 4 mg PO Q6H PRN (Reason: Nausea And Vomiting) bisacodyl 10 mg Suppository 10 mg SC DAILY PRN (Reason: Bowel Management) Enema 19-7 gram/118 mL Enema 118 ml SC DAILY PRN (Reason: Bowel Movement) Artificial Tears (PF) Dropperette 1 drp OPHTHALMIC (EYE) QID oxycodone 5 mg Tablet 2.5 mg PO Q4H PRN (Reason: Pain, Severe (Pain Scale 7-10)) Qty: 9 0RF Rx Instructions: Partial Fill upon patient request. Saccharomyces boulardii [Probiotic (S.boulardii)] 250 mg Capsule 250 mg PO BID Rx Instructions: END: 05/06/24 @ 2100 Discontinued furosemide 40 mg tablet 40 mg PO DAILY metoprolol succinate 50 mg tablet extended release 24 hr 50 mg PO DAILY potassium chloride 20 mEq tablet,ER particles/crystals 20 meq PO BID mirtazapine 7.5 mg tablet 7.5 mg PO BEDTIME melatonin 3 mg Tablet 3 mg PO BEDTIME acetaminophen 325 mg tablet 650 mg PO Q6H PRN (Reason: Fever Or Pain) enoxaparin 40 mg/0.4 mL Syringe 40 mg subcut Q24H Qty: 27 0RF Rx Instructions: END: 06/13/24 lisinopril 20 mg tablet 20 mg PO DAILY Qty: 90 2RF Discharge Orders: Discharge Order (Routine); Ordered 05/08/24 Ordered By: Aki Glass Diet: Advance to usual diet Activity on Discharge: As tolerated Stand Alone Forms: Patient Portal Discharge page Print Language: Nepali Care Plan Goals: comfort measures Health Concerns: cva Plan of Treatment: comfort care/ end of life Assessment: see above
--- NOTE | 2024-05-08 14:23 | P.CONOP_ITS ---
History of Present Illness HPI Consult date: 05/08/24 Chief complaint: Decreased level of consciousness Narrative: patient is s/p Lt hip denise with Dr Alvarado on 04/25/24 She is resting in bed comfortably Review of Systems 2 Review of Systems: Yes all other systems are reviewed and are negative PMFSH Past Medical History Medical History Fracture of femoral neck, right Urinary tract infection Closed hip fracture requiring operative repair Fracture of right distal radius Diverticular disease Cholelithiasis Glaucoma Vestibular neuronitis of both ears Hypertension Hypercholesterolemia Coronary artery disease Osteoporosis Family History Family History Father No problems noted. Mother CVD (cardiovascular disease) Hypertension Surgical History Surgical History Hx of nasal septoplasty History of surgery History of eye surgery History of appendectomy History of tonsillectomy History of total abdominal hysterectomy and bilateral salpingo-oophorectomy History of cataract surgery Social History Social History Household Members: Unknown / Unable to assess Housing: [facility] Other:: [facility] Alcohol intake: never Comment: Pt not impulsive; no camera in place on assuming care Patient Tobacco Use Status: Never used Tobacco e-Cigarette/Vaping Use: Never Used Second Hand Smoke Exposure: No Advance Directives Date on File: 10/08/21 service: No Current occupational status: retired Meds Allergies Allergy/AdvReac Type Severity Reaction Status Date / Time atorvastatin [Lipitor] Allergy Unknown Unknown Verified 05/05/24 13:36 ciprofloxacin [Cipro] Allergy Unknown nausea Verified 05/05/24 13:36 ezetimibe [Zetia] Allergy Unknown Unknown Verified 05/05/24 13:36 pravastatin [Pravachol] Allergy Unknown Unknown Verified 05/05/24 13:36 simvastatin Allergy Unknown Unknown Verified 05/05/24 13:36 sulfamethoxazole Allergy Unknown Unknown Verified 05/05/24 13:36 [From Marra] trimethoprim [From Septra] Allergy Unknown Unknown Verified 05/05/24 13:36 Active Medications: Current Medications Sodium Chloride (0.9 % Sodium Chloride Flush 3 Ml Syringe) 3 ml IVFLUSH QSHIFT [facility] Last Admin: 05/08/24 10:25 Dose: 3 ml Home Medications ?Medication ?Instructions ?Recorded ?Confirmed ?Last Taken ?Type latanoprostene bunod 0.024 % eye 1 drp ophthalmic (eye) BEDTIME 11/11/21 05/06/24 Unknown History drops (Vyzulta) bisacodyl 10 mg rectal suppository 10 mg LA DAILY PRN Bowel Management 04/25/24 05/06/24 Unknown History dextran 70-hypromellose eye drops 1 drp ophthalmic (eye) QID 04/25/24 05/06/24 Unknown History in a dropperette (Artificial Tears (PF) drops in a dropperette) ondansetron HCl 4 mg tablet 4 mg PO Q6H PRN Nausea And Vomiting 04/25/24 05/06/24 Unknown History sennosides 8.6 mg tablet (senna) 17.2 mg PO DAILY PRN Bowel 04/25/24 05/06/24 Unknown History Management sodium phosphates 19 gram-7 118 ml LA DAILY PRN Bowel Movement 04/25/24 05/06/24 Unknown History gram/118 mL enema (Enema) timolol maleate 0.25 % eye drops 1 drp ophthalmic (eye) DAILY 04/25/24 05/06/24 Unknown History Saccharomyces boulardii 250 mg 250 mg PO BID 05/06/24 05/06/24 Unknown History capsule (Probiotic (S.boulardii)) Physical Exam 2 Vital Signs: Vital Signs: Last Vital Signs Temp 98.3 F 05/08/24 08:00 Pulse 92 05/08/24 08:00 Resp 20 05/08/24 12:00 BP 192/90 H 05/08/24 08:00 Pulse Ox 97 05/08/24 08:00 O2 Del Method Room Air 05/08/24 08:00 BMI result Body Mass Index 22.7 Const: General: cooperative and no acute distress O rientation/consciousness: patient oriented x3 Resp: Effort & Inspection: normal respiratory effort and able to speak in complete sentences Cardio: Peripheral pulses: Peripheral pulses 2+ throughout Neuro: General: patient oriented x3 Extrem: Other: incision clean dry and intact. [place] intact. No erythema or effusion. Calf supple nontender. Neurovascularly intact. Results Labs 05/07/24 06:24 05/07/24 06:24 Labs: Abnormal lab results 05/07/24 Range/Units 06:24 Lactate Dehydrogenase 235 H (122-220) U/L C-Reactive Protein 2.00 H (< or = 0.50) mg/dL H & H 05/05/24 05/06/24 05/07/24 Range/Units 13:44 06:24 06:24 Hgb 13.0 11.0 L 10.6 L (12.0-16.0) g/dl Hct 39.5 34.2 L 32.7 L (37.0-47.0) % Coagulation 05/05/24 Range/Units 13:44 INR 1.2 H (0.9-1.1) All other labs normal. Assessment and Plan (1) Fracture of femoral neck, left: Status: Acute Plan Left hip denise -karyna removed today -wbat posterior precautions -continue dvt ppx x4 wks -f/u in office in 4 weeks with xrays Procedures Date of Service Date of Service: 05/08/24
[2024-05-08 15:41] VITALS: RESP 20
== END 2024-05-08 16:22 | DRG 64 ==
LOC: HO.ED 15:55 → HO.EDOVER 20:29 → HO.IMC 20:38
PROVIDERS: Emergency Medicine; Student in an Organized Health Care Education/Training Program; Admitting Provider Internal Medicine; Emergency Provider Emergency Medicine; PCP Family Medicine; Visit Provider Internal Medicine
DX: I63.512 Cerebral infarction due to unspecified occlusion or stenosis of left middle cerebral artery (principal); G92.8 Other toxic encephalopathy; E87.21 Acute metabolic acidosis; I25.10 Atherosclerotic heart disease of native coronary artery without angina pectoris; Z66 Do not resuscitate; R29.810 Facial weakness; Z51.5 Encounter for palliative care; I65.1 Occlusion and stenosis of basilar artery; I10 Essential (primary) hypertension; H40.9 Unspecified glaucoma; F01.C0 Vascular dementia, severe, without behavioral disturbance, psychotic disturbance, mood disturbance, and anxiety; Z20.822 Contact with and (suspected) exposure to COVID-19; Z79.899 Other long term (current) drug therapy
CPT/HCPCS: 0241U; 36415; 62328; 70450; 70496; 70498; 70551; 70552; 71045; 80048; 80053; 80076; 80307; 81003; 82140; 82803; 82945; 82947; 83605; 83615; 83690; 83880; 84146; 84157; 84443; 84484; 85025; 85027; 85610; 86140; 87015; 87040; 87070; 87205; 87483; 89051; 93005; 93306; 99285; A9585; C1758; J0133; J0696; J1644; J1920; J1953; J2310; J7120; Q9967

== ENCOUNTER → 2024-05-05 13:25 | Outpatient (BNV) | payer MEDICARE, MEDICAID, SELFPAY | PROVIDERS: Admitting Provider Internal Medicine; Emergency Provider Emergency Medicine; PCP Family Medicine; Visit Provider Internal Medicine | DX: I63.9 Cerebral infarction, unspecified (principal) | CPT/HCPCS: 93010 ==

== ENCOUNTER 2024-05-05 19:40 | Outpatient (BNV) | payer MEDICARE, MEDICAID, SELFPAY | END 2024-05-07 07:00 | PROVIDERS: Admitting Provider Internal Medicine; Emergency Provider Emergency Medicine; PCP Family Medicine; Visit Provider Internal Medicine Cardiovascular Disease | DX: I34.0 Nonrheumatic mitral (valve) insufficiency (principal); I34.81 Nonrheumatic mitral (valve) annulus calcification; I35.8 Other nonrheumatic aortic valve disorders; I36.1 Nonrheumatic tricuspid (valve) insufficiency | CPT/HCPCS: 93306 ==

== ENCOUNTER 2024-05-05 19:40 | Outpatient (BNV) | payer MEDICARE, MEDICAID, SELFPAY | END 2024-05-07 11:00 | PROVIDERS: Admitting Provider Internal Medicine; Emergency Provider Emergency Medicine; PCP Family Medicine; Visit Provider Radiology Diagnostic Radiology | DX: R41.82 Altered mental status, unspecified (principal) | CPT/HCPCS: 62328 ==

== ENCOUNTER → 2024-05-05 19:40 | Outpatient (BNV) | payer MEDICARE, MEDICAID, SELFPAY | PROVIDERS: Admitting Provider Internal Medicine; Emergency Provider Emergency Medicine; PCP Family Medicine; Visit Provider Internal Medicine | DX: E87.21 Acute metabolic acidosis (principal); R41.82 Altered mental status, unspecified; R40.1 Stupor | CPT/HCPCS: 99223; 99232; 99239 ==

== ENCOUNTER → 2024-05-05 19:40 | Outpatient (BNV) | payer MEDICARE, MEDICAID, SELFPAY | PROVIDERS: Admitting Provider Internal Medicine; Emergency Provider Emergency Medicine; PCP Family Medicine; Visit Provider Physician Assistant | DX: S72.002A Fracture of unspecified part of neck of left femur, initial encounter for closed fracture (principal) | CPT/HCPCS: 99024 ==

== ENCOUNTER → 2024-05-05 19:40 | Outpatient (BNV) | payer MEDICARE, MEDICAID, SELFPAY | PROVIDERS: Admitting Provider Internal Medicine; Emergency Provider Emergency Medicine; PCP Family Medicine; Visit Provider Psychiatry & Neurology Neurology | DX: R41.82 Altered mental status, unspecified (principal); F03.C18 Unspecified dementia, severe, with other behavioral disturbance | CPT/HCPCS: 99222 ==

== ENCOUNTER 2024-05-08 09:35 | Outpatient (REF) | payer MEDICARE, MEDICAID, SELFPAY | END 2024-05-08 09:36 | disposition home or self-care (01) | LOC: HO.HOSX 09:35 | PROVIDERS: Visit Provider Physician Assistant | DX: Z13.89 Encounter for screening for other disorder (principal) ==